=== PATIENT | female | born 1945 | race Caucasian/White ===

== ENCOUNTER → 2017-01-30 | Outpatient (CLI) | payer MEDICARE, BC ==
--- NOTE | 2017-01-30 17:19 | MAM ---
History: Well woman exam. Date of exam: 01/30/2017 Services provided: Bilateral full field digital screening mammography. CAD, the images were reviewed with R2 computer aided detection. FINDINGS: Glandular tissue is scattered glandular contour. Comparison with 2010 exam. No dominant mass, architectural distortion or clustered microcalcification. IMPRESSION: Benign exam Recommendation: Routine annual mammography BIRAD CATEGORY: 2 BENIGN Electronically signed by: Jacinta Perez MD 01/30/2017 5:18 PM CDT
== END | disposition home or self-care (01) ==
LOC: MAMMO 10:23
PROVIDERS: ATTEND Family Medicine
DX: Z12.31 Encounter for screening mammogram for malignant neoplasm of breast (principal)

== ENCOUNTER → 2017-04-27 | Outpatient (CLI) | payer MEDICARE, BC | END | disposition home or self-care (01) | LOC: GMAB 10:45 | PROVIDERS: ATTEND Family Medicine | DX: I10 Essential (primary) hypertension (principal) ==

== ENCOUNTER → 2018-05-02 | Outpatient (CLI) | payer MEDICARE, BC | LOC: GMAE 11:19 | PROVIDERS: ATTEND Family Medicine | DX: I10 Essential (primary) hypertension (principal) ==

== ENCOUNTER → 2018-05-08 | Outpatient (CLI) | payer MEDICARE, BC ==
--- NOTE | 2018-05-09 09:06 | MAM ---
EXAM DESCRIPTION: 3D Screening BILATERAL : Digital Mammography. CLINICAL HISTORY: 72 years Female SCREENING . No complaints. Remote family history of breast cancer. Childbirth. HRT 5 or more years ago. COMPARISON: Digital screening bilateral study 01/30/2017. Report from prior examination also reviewed. TECHNIQUE: Bilateral CC and MLO projection full-field images, 3-D tomosynthesis digital mammographic technique. CAD not utilized. FINDINGS: The breast parenchymal density pattern is: Scattered areas of fibroglandular density. No skin thickening or nipple retraction. Bilateral microcalcifications and coarse calcifications are solitary. Focal asymmetry approximately 3 cm from the left nipple at the 1200 - 1230 clock position in the anterior third of the breast. Not associated with microcalcifications. possible enlargement since the prior study versus different projection of stable densities. No new focal, stellate mass or density, focal asymmetry , and no suspicious microcalcifications right breast. IMPRESSION: BI-RADS CATEGORY: 0 - INCOMPLETE- Need additional imaging evaluation. FOLLOW-UP: Recall for additional imaging: Repeat full field 2-D images of the left breast in MLO projection. Anterior digital spot compression region of interest left breast 2-D CC projection. Bilateral 3-D full-field LM images. Targeted left breast ultrasound if indicated by diagnostic images.. Written communication concerning the IMPRESSION and Follow-up, will be mailed to the patient and referring health care provider. Electronically signed by: Fidencio Bell MD 05/09/2018 9:05 AM CDT
== END ==
LOC: MAMMO 13:00
PROVIDERS: ATTEND Family Medicine
DX: Z12.31 Encounter for screening mammogram for malignant neoplasm of breast (principal)

== ENCOUNTER → 2018-05-15 | Outpatient (CLI) | payer MEDICARE, BC ==
--- NOTE | 2018-05-15 15:19 | MAM ---
EXAM DESCRIPTION: 3D Diagnostic, Bilateral: Digital Mammography CLINICAL HISTORY: 72 yearsFemaleABNORMAL MAMMO focal asymmetry retroareolar left breast upper outer quadrant.. COMPARISON: 3-D tomosynthesis screening mammographic examination 05/08/2018. Targeted left breast ultrasound following this examination. TECHNIQUE: Bilateral LM projection full-field images, 3-D tomosynthesis digital mammographic technique. Digital spot compression of the anterior retroareolar left breast in the CC and MLO projections. CAD not utilized. FINDINGS: The breast parenchymal density pattern is: Scattered areas of fibroglandular density. No skin thickening or nipple retraction tomosynthesis in the LM projections did not demonstrate a focal mass. However the spot compression images showed a mass in the region of interest. No abnormal calcifications. Ultrasound: Scanning at the 100 clock position of the left breast 3 cm from the nipple. Hypoechoic mass measuring 3.8 mm craniocaudal and 3.9 mm transverse. Anterior posterior dimension is 5 mm. Minimally lobulated borders, antiparallel orientation, and posterior shadowing features. There may be a small extension from the mass. Differential includes solid mass, complicated cyst, or obstructed/dilated duct due to mass or debris. No distinct cyst. No large calcifications or parenchymal edema. No overlying skin changes. No abnormal vascularity. IMPRESSION: BI-RADS CATEGORY 4: SUSPICIOUS. SUB-CATEGORY 4A - LOW SUSPICION FOR MALIGNANCY. Surgical consultation and tissue diagnosis should be considered. The FINDINGS and follow-up plan were reviewed in person with the patient following the examination. Written communication explaining the IMPRESSION and follow-up will be mailed to the patient and referring care provider. CRITICAL COMMUNICATION: The critical value was discussed directly by phone with Dr. Reed Melissa at approximately 1435 hours, on May 15, 2018. Electronically signed by: Fidencio Bell MD 05/15/2018 3:17 PM CDT
--- NOTE | 2018-05-15 15:20 | US ---
EXAM DESCRIPTION: Breast,Left: Ultrasound CLINICAL HISTORY: 72 yearsFemaleABNORMAL MAMMO COMPARISON: Digital diagnostic mammogram left breast on this visit TECHNIQUE: Transcutaneous scanning of the left breast utilizing brock-scale and Doppler modes. Scanning performed by the supplemental manager and Dr. Bell. FINDINGS: Scanning at the 100 clock position of the left breast 3 cm from the nipple. Hypoechoic mass measuring 3.8 mm craniocaudal and 3.9 mm transverse. Anterior posterior dimension is 5 mm. Minimally lobulated borders, antiparallel orientation, and posterior shadowing features. There may be a small extension from the mass. Differential includes solid mass, complicated cyst, or obstructed/dilated duct due to mass or debris No distinct cyst. No large calcifications or parenchymal edema. No overlying skin changes. No abnormal vascularity. IMPRESSION: 1. BI-RADS CATEGORY: 4 - SUSPICIOUS. SUB - CATEGORY 4A: LOW SUSPICION FOR MALIGNANCY. 2. Please refer to bilateral 3-D diagnostic mammography and report on this visit. The FINDINGS and various follow-up plans were reviewed in person with the patient after the examination. Written communication explaining the IMPRESSION and FOLLOW-UP will be mailed to the patient and referring care provider. CRITICAL COMMUNICATION: The critical value was discussed directly by phone with Dr. Reed Melissa at approximately 1435 hours, on May 15, 2018. Electronically signed by: Fidencio Bell MD 05/15/2018 3:18 PM CDT
== END ==
LOC: US 13:00
PROVIDERS: ATTEND Family Medicine
DX: R92.2 Inconclusive mammogram (principal)
CPT/HCPCS: 76641; 77066; G0279

== ENCOUNTER 2018-07-19 06:01 | Inpatient (IN) | payer MEDICARE, BC ==
--- NOTE | 2018-07-17 11:18 | RAD ---
EXAM DESCRIPTION: Chest,2 Views CLINICAL HISTORY: 72 years Female, pre op COMPARISON: Radiographs of the chest dated 05/29/2018. TECHNIQUE: PA and lateral radiographs of the chest were obtained. FINDINGS: Trachea is midline.The cardiomediastinal silhouette is normal in size. The pulmonary vasculature is within normal limits.The lungs are clear with no acute consolidation.No evidence of pleural effusions.No evidence of pneumothorax. IMPRESSION: No acute cardiopulmonary process. Electronically signed by: Dasha Lobo MD 07/17/2018 11:17 AM CDT
[2018-07-19] MEDS ORDERED: METOCLOPRAMIDE HCL INJ 10 MG/2 ML VIAL ONE (07:00)
[2018-07-19] MEDS ORDERED: PROPOFOL 200 MG/20 ML VIAL IV ONE (07:00)
[2018-07-19] MEDS ORDERED: ePHEDrine SULF 50 MG/ML ONE (07:00)
[2018-07-19] MEDS ORDERED: LIDOCAINE 1% 10 ML VIAL INJ ONE (07:00)
[2018-07-19] MEDS ORDERED: raNITIdine HCL INJ 25 MG/ML VIAL ONE (07:00)
[2018-07-19] MEDS ORDERED: DEXAMETHASONE INJ 10 MG/ML VIAL ONE (07:00)
[2018-07-19] MEDS ORDERED: PHENYLEPHRINE INJ 1ML 10 MG/ML VIAL ONE (07:00)
[2018-07-19] MEDS ORDERED: SODIUM CHL 0.9% 100ML MINI-BAG 100 ML IVPB ONE (07:06)
[2018-07-19] MEDS ORDERED: ceFAZolin SODIUM 1 GM VIAL ONE (07:06)
[2018-07-19] MEDS ORDERED: LACTATED RINGERS 1,000 ML ONE (07:06)
[2018-07-19] MEDS ORDERED: LACTATED RINGERS 1,000 ML BAG IV ONE (07:50)
[2018-07-19] MEDS ORDERED: ACETAMINOPHEN IV 1000MG 100 ML ONE (08:18)
[2018-07-19] MEDS ORDERED: HYDROmorphone HCL INJ 2 MG/ML VIAL ONE ×2 (08:18→12:08)
[2018-07-19] MEDS ORDERED: MIDAZOLAM INJ 2 MG/2 ML VIAL ONE (08:18)
[2018-07-19] MEDS ORDERED: SODIUM CHLORIDE 0.9% 50 ML VIAL ONE (09:12)
[2018-07-19] MEDS ORDERED: ELECTROLYTE-A 1,000 ML IVS ONE (10:33)
[2018-07-19] MEDS ORDERED: MORPHINE SULFATE INJ 10 MG/ML VIAL IV PRN (11:53)
[2018-07-19] MEDS ORDERED: ONDANSETRON INJ 4 MG/2 ML VIAL IV PRN (11:53)
--- NOTE | 2018-07-19 13:12 | HP ---
CHIEF COMPLAINT: Biopsy-proven carcinoma of the left breast. HISTORY OF PRESENT ILLNESS: The patient is a 72-year-old female who on routine mammography was found to have a mass and a biopsy revealed invasive carcinoma. She underwent metastatic workup which was negative. It is also significant that her daughter is currently being treated for breast cancer in [place]. The risks, benefits and alternatives to surgical treatment with or without radiation were discussed with the patient. She has elected to proceed with modified radical mastectomy today. PAST MEDICAL HISTORY: 1. Gastroesophageal reflux disease. 2. Heart murmur. 3. History of urinary tract infections. 4. Chronic back pain. 5. Diabetes. 6. Elevated lipids. PAST SURGICAL HISTORY: 1. Back surgery with plates. 2. Total vaginal hysterectomy with bladder suspension and then later removal of the mesh. 3. Ablation. 4. Bilateral cataracts. 5. Tonsillectomy. 6. Colonoscopy. CURRENT MEDICATIONS: 1. Lipitor. 2. Norvasc. 3. Mobic. 4. Amlodipine. 5. Aricept. 6. Zoloft. 7. Gabapentin. 8. Janumet. 9. Aspirin, which is being held. ALLERGIES: CYMBALTA. FAMILY HISTORY: Significant for breast cancer in her daughter. SOCIAL HISTORY: The patient is . She lives here in [place]. There is no history of tobacco abuse or alcohol abuse. REVIEW OF SYSTEMS: Noncontributory except for history of a heart murmur and history of urinary tract infections. She also has a history of hospitalization earlier this year for 20 days and the patient continues to have some problems dealing with the results of that hospitalization. PHYSICAL EXAMINATION: GENERAL: The patient is awake, alert, cooperative, in no acute distress. HEENT: Sclerae nonicteric. Mucous membranes moist. NECK/AXILLA: Without adenopathy. BACK: Without CVA tenderness. CHEST: Equal breath sounds bilaterally. HEART: Regular rhythm. BREASTS: The left breast is marked with my initials for a mastectomy. The biopsy site is healed well. ABDOMEN: Benign without organomegaly. PELVIC/RECTAL: Deferred. EXTREMITIES: Without cyanosis, clubbing or edema. LABORATORY: EKG with normal sinus rhythm with some prolonged QT interval and some ST changes somewhat worrisome for ischemia. Glucose this morning was 106. Electrolytes reveal blood sugar 151, creatinine 0.64, potassium 4.0. Liver functions within normal limits. Hemoglobin 17, white count 7.7, platelet count 200,000, normal differential. Urine reveals 1 to 3 red cells and white cells, no bacteria, leukocyte esterase positive. Blood and urine cultures pending. ASSESSMENT: 1. Biopsy-proven carcinoma of the left breast. PLAN: The patient is admitted today after IV Ancef for a left modified radical mastectomy. #[id number] [facility]
[2018-07-19] MEDS ORDERED: ceFAZolin SODIUM 2 GRAMS PREMI 50 ML IVPB ONE ×2 (13:35→20:36)
[2018-07-19] MEDS: LACTATED RINGERS 1,000 ML IVS PRN (14:01)
[2018-07-19] MEDS: ceFAZolin SODIUM 2 GRAMS PREMI 2 GM in PREMIX BAG 1 BAG IVPB SCH ×2 (14:01→21:13)
--- NOTE | 2018-07-19 14:01 | OP ---
DATE OF PROCEDURE: 07/19/18 PREOPERATIVE DIAGNOSIS: 1. Biopsy-proven carcinoma of the left breast. POSTOPERATIVE DIAGNOSIS: 1. Biopsy-proven carcinoma of the left breast. PROCEDURE: 1. Left modified radical mastectomy. SURGEON: Elian Solomon MD. RESEARCH PHARMACIST: None. ANESTHESIA: General laryngeal mask anesthesia. INDICATION: The patient is a 72-year-old female who on routine mammography was found to have a small breast cancer. She was brought to the Surgical Suite today for mastectomy after the risks, benefits and alternatives to the procedure were discussed and accepted. FINDINGS: No significant pathology was identified. Post procedure, the long thoracic nerve of Mondragon and the thoracodorsal bundle were functioning with stimulation. PROCEDURE: After the risks, benefits and alternatives to the procedure were discussed and accepted, the patient was brought to the Surgical Suite for mastectomy. She was placed in the supine position. The patient was prepped and draped in the usual sterile manner. She has undergone general laryngeal mask anesthesia. Surgical time-out was taken. The left breast was marked for the superior and inferior flaps with a marking pen. The sharp knife was used to incise the skin on the superior flap and the superior flap was then taken using electrocautery and [place] clamps and retractors. When this was done, the flap was dissected free medially to the sternum, superiorly to the clavipectoral fascia and into the axilla. Hemostasis was noted to be adequate. A warm sponge was placed under the flap and then the inferior flap was taken in a like manner down to the rectus abdominis fascia. The breast was dissected free from the muscle from medial to lateral using a sharp knife and electrocautery. When this was done, no dissection was performed with the superior margin, the axillary vein posteriorly and thoracodorsal bundle and the long thoracic nerve of [place]ragon. The specimen was sent en bloc of the left breast and axillary contents. Hemostasis was obtained with electrocautery. The wound was then irrigated copiously with saline. The skin edges were approximated running 3-0 Vicryl sutures, one from each end. When they come to the middle, they are irrigated. Prior to closing two 15 [place] LIANE drains were placed, one in the chest wall and one in the axilla. The wound was then drained through the drains. The skin edges were approximated with a skin stapler. The drains were cut to appropriate length and connected to grenades for suction drainage. A sterile pressure dressing was applied. The patient tolerated well and was taken to the Recovery Room in stable condition. Estimated blood loss was probably 200 to 250 mL. All sponge, needle and instrument counts were correct. #[id number] [facility]
[2018-07-19] MEDS: HYDROcodone 5MG/APAP 325MG 1 EA TAB PO PRN ×2 (15:07→21:17)
[2018-07-19] MEDS ORDERED: DEXTROSE 50% 25 GM/50 ML SYG IV PRN (17:34)
[2018-07-19] MEDS ORDERED: GLUCAGON INJ 1 MG VIAL SUBCU PRN (17:34)
[2018-07-19] MEDS ORDERED: DONEPEZIL HCL 5 MG TAB ONE (20:36)
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
[2018-07-19] MEDS ORDERED: NON-FORMULARY MEDICATION 1 EA MIS (Donepezil Hydrochloride [Donepezil Hcl] 10 MG) PO SCH (21:00)
[2018-07-19] MEDS: INSULIN LISPRO 100 UNITS/ML PEN SUBCU SCH (21:14)
[2018-07-19] MEDS: SERTRALINE HCL 50 MG TAB PO SCH (21:15)
[2018-07-20] MEDS: LACTATED RINGERS 1,000 ML IVS PRN (01:34)
[2018-07-20] MEDS: HYDROcodone 5MG/APAP 325MG 1 EA TAB PO PRN ×5 (01:34→20:57)
[2018-07-20] MEDS ORDERED: ceFAZolin SODIUM 2 GRAMS PREMI 50 ML IVPB ONE (05:17)
[2018-07-20] MEDS: ceFAZolin SODIUM 2 GRAMS PREMI 2 GM in PREMIX BAG 1 BAG IVPB SCH (05:19)
[2018-07-20] MEDS: PANTOPRAZOLE SODIUM TAB 40 MG PO SCH (06:04)
[2018-07-20] MEDS: INSULIN LISPRO 100 UNITS/ML PEN SUBCU SCH ×4 (07:37→20:58)
[2018-07-20] MEDS ORDERED: [UNRECOGNIZED DRUG - OTHER] PO SCH (09:00)
[2018-07-20] MEDS ORDERED: NON-FORMULARY MEDICATION 1 EA MIS (Probiotic Product [Probiotic] 1 TAB) PO SCH (09:00)
[2018-07-20] MEDS ORDERED: NON-FORMULARY MEDICATION 1 EA MIS (Losartan Potassium [Losartan Potassium] 50 MG) PO SCH (09:00)
[2018-07-20] MEDS ORDERED: SITAGLIPTIN PO SCH (09:00)
[2018-07-20] MEDS ORDERED: METFORMIN PO SCH (09:00)
[2018-07-20] MEDS: ATORVASTATIN 10 MG TAB PO SCH (10:19)
[2018-07-20] MEDS: LOSARTAN POTASSIUM 25 MG TAB PO SCH (10:19)
[2018-07-20] MEDS: ENOXAPARIN SODIUM 40 MG/0.4 ML SYG SUBCU SCH (10:19)
[2018-07-20] MEDS ORDERED: metFORMIN HCL 500 MG TAB PO SCH (10:30)
[2018-07-20] MEDS ORDERED: metFORMIN XR 500 MG TAB.ER.24 PO SCH (12:00)
[2018-07-20] MEDS: SITagliptin 50 MG TAB PO SCH (12:06)
[2018-07-20] MEDS: BIFIDOBACTERIUM INFANTIS 4 MG CAP PO SCH (12:07)
[2018-07-20] MEDS: NON-FORMULARY MEDICATION 1 EA MIS (Letrozole [Letrozole] 2.5 MG) PO SCH (12:07)
[2018-07-20] MEDS ORDERED: ALBUTEROL SULFATE 2.5 MG/3 ML VIAL NEB ONE (13:15)
[2018-07-20] MEDS: ALBUTEROL SULFATE 2.5 MG/3 ML VIAL NEB SCH ×2 (16:34→20:23)
--- NOTE | 2018-07-20 19:58 | PN ---
DATE: 07/20/18 SUPERVISING PHYSICIAN: Alec Melissa M.D. SUBJECTIVE: The patient is sitting up in her bed. She is eating her lunch. She has no complaints of nausea, vomiting, diarrhea or constipation. She actually says she is in minimal pain and the pain medications control it. OBJECTIVE: VITAL SIGNS: She is afebrile, heart rate 65, blood pressure 128/60, respiratory rate 18, O2 sat 94% on room air. RESPIRATORY: Essentially clear to auscultation bilaterally. CARDIAC: Regular rate. GASTROINTESTINAL: Abdomen is soft, nondistended, non-tender. Bowel sounds are positive. CHEST: She does have a surgical binding in place to her chest from her surgical wounds. It is dry and intact. She has 2 J-P drains with a very small amount of serosanguinous fluid. NEUROLOGIC: She is awake, alert and oriented times three. LABORATORY: WBCs are 9.7 with hemoglobin 13.5, hematocrit 41.1. Blood sugars have run between 122 and 218. Electrolytes are basically within normal limits. All other labs and films have been reviewed via the EMR. ASSESSMENT: 1. Biopsy proven carcinoma of the left breast status post modified left radical mastectomy performed by Dr. Elian Solomon, general surgeon. Postoperative day #1. 2. Gastroesophageal reflux disease. 3. Diabetes. 4. Chronic back pain. 5. History of frequent urinary tract infections. PLAN: We will continue present supportive care. Her blood sugars have been controlled well with her sliding scale. I have ordered good pulmonary hygiene and have encouraged her to continue with this. All postoperative issues will be per Dr. Elian Solomon. Otherwise we will continue to monitor closely and follow as needed. Dr. Melissa is the collaborating physician available for consultation. #[id number] [facility]
[2018-07-20] MEDS: SERTRALINE HCL 50 MG TAB PO SCH (20:57)
[2018-07-20] MEDS ORDERED: DONEPEZIL HCL 5 MG TAB PO SCH (21:00)
[2018-07-21] MEDS: PANTOPRAZOLE SODIUM TAB 40 MG PO SCH (06:02)
[2018-07-21] MEDS: INSULIN LISPRO 100 UNITS/ML PEN SUBCU SCH (06:55)
[2018-07-21 07:13] VITALS: BP 151/66; TEMP 98.5
[2018-07-21] MEDS: SITagliptin 50 MG TAB PO SCH (07:14)
[2018-07-21] MEDS ORDERED: metFORMIN XR 500 MG TAB.ER.24 PO SCH (07:30)
[2018-07-21] MEDS: ALBUTEROL SULFATE 2.5 MG/3 ML VIAL NEB SCH (07:59)
[2018-07-21 08:01] VITALS: O2SAT 97
[2018-07-21] MEDS: NON-FORMULARY MEDICATION 1 EA MIS (Letrozole [Letrozole] 2.5 MG) PO SCH (08:28)
[2018-07-21] MEDS: BIFIDOBACTERIUM INFANTIS 4 MG CAP PO SCH (08:29)
[2018-07-21] MEDS: ATORVASTATIN 10 MG TAB PO SCH (08:29)
[2018-07-21] MEDS: LOSARTAN POTASSIUM 25 MG TAB PO SCH (08:29)
[2018-07-21] MEDS: ENOXAPARIN SODIUM 40 MG/0.4 ML SYG SUBCU SCH (08:29)
[2018-07-21] MEDS: HYDROcodone 5MG/APAP 325MG 1 EA TAB PO PRN (08:33)
--- NOTE | 2018-07-21 18:50 | DS ---
FINAL DIAGNOSIS: 1. Carcinoma of the left breast. Pathology pending for staging. SURGICAL PROCEDURE: 1. The patient underwent a left modified radical mastectomy on 07/19/18. HISTORY OF PRESENT ILLNESS: The patient is a 72-year-old female who on routine mammography was found to have a mass and a biopsy revealed invasive carcinoma. She underwent metastatic workup which was negative. It is also significant that her daughter is currently being treated for breast cancer in [place]. The risks, benefits and alternatives to surgical treatment with or without radiation were discussed with the patient. She has elected to proceed with modified radical mastectomy today. LABORATORY: On the first preoperative day, the patient's hemoglobin was 13.5, white count 9,700. She had 180,000 platelets and a normal differential. Pathology is pending. HOSPITAL COURSE: The patient was admitted to the Surgical Suite where she underwent the left modified radical mastectomy without difficulty. By the first postoperative evening she was tolerating a clear liquid diet. The first postoperative morning she was stable. Her Wilkinson catheter was discontinued. Her IV was discontinued. She was advanced to a regular diet and regular medication. Her drainage continued to be moderate and serosanguinous. By the second postoperative morning a dressing change was performed. There was a small amount of mottling on the medial aspect of the superior flap, otherwise no significant problems. The J-Ps were milked. The patient was redressed and at this time the patient is discharged home. PLAN: Condition on discharge is good. Prognosis is good pending the pathology report. Discharged home on her regular diet and regular medications plus she was given a prescription for [place] 5 mg for pain. She was told that she has to keep her dressing dry so she cannot tub bath or shower. She is to drain her J- P drains 3 or 4 times a day, measure and document the amount of drainage. She is to call my office Monday morning with the drainage output and to schedule a followup appointment. She is to have home health for daily dressing changes and milking of the J-P by [facility]. She also is instructed to call me if she develops nausea, vomiting, fever, chills, increasing pain or has any other questions or problems. #[id number] [facility]
== END 2018-07-21 10:45 | disposition home health service (06) | DRG 583 ==
LOC: AMB 06:01 → MS 13:32
PROVIDERS: ADMIT Surgery; ATTEND Surgery
PROC: 0HTU0ZZ Resection of Left Breast, Open Approach (ICD-10-PCS; principal; 2018-07-19 08:34)
DX: C50.912 Malignant neoplasm of unspecified site of left female breast (principal); K21.9 Gastro-esophageal reflux disease without esophagitis; G89.29 Other chronic pain; M54.9 Dorsalgia, unspecified; R01.1 Cardiac murmur, unspecified; E11.9 Type 2 diabetes mellitus without complications; E78.5 Hyperlipidemia, unspecified; Z80.3 Family history of malignant neoplasm of breast; Z79.1 Long term (current) use of non-steroidal anti-inflammatories (NSAID); Z79.899 Other long term (current) drug therapy; Z79.84 Long term (current) use of oral hypoglycemic drugs; Z79.82 Long term (current) use of aspirin; Z88.8 Allergy status to other drugs, medicaments and biological substances

== ENCOUNTER 2018-07-26 08:48 | Inpatient (IN) | payer MEDICARE, BC ==
[2018-07-26] MEDS ORDERED: MAGNESIUM SULFATE PREMIX 2GM 2 GM in PREMIX BAG 1 BAG IVPB ONE ×2 (10:02→13:38)
--- NOTE | 2018-07-26 10:03 | CT ---
EXAM DESCRIPTION: Head CLINICAL HISTORY: confusion sp mastectomy COMPARISON: Previous CT head June 14, 2013, previous MRI of the brain June 12, 2013 TECHNIQUE: Noncontrast head CT was performed with routine protocol. FINDINGS: Normal brock-white matter differentiation. Ventricles and sulci are enlarged consistent with age-related cerebral volume loss which has progressed since the previous study. Low density white matter indicates chronic microvascular ischemic changes in both cerebral hemispheres. 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 No high density hemorrhage, focal edema or shift of the midline. No sulcal effacement. Normal orbital contents. Basilar cisterns appear clear. Intact calvarium with no fracture or lytic lesion. Normal aeration of tympanic cavities and mastoid air cells. No fluid levels in the paranasal sinuses. Skull base appears intact. Symmetrical internal auditory canals. IMPRESSION: Senescent brain and chronic microvascular ischemic changes with moderate progression since previous study. No acute intracranial pathologic process. This exam was performed according to our departmental dose-optimization program, which includes automated exposure control, adjustment of the mA and/or kV according to patient size and/or use of iterative reconstruction technique. Total DLP equals 752.48 mGycm. Electronically signed by: Zeke Branch MD 07/26/2018 10:01 AM CDT
--- NOTE | 2018-07-26 10:04 | RAD ---
EXAM DESCRIPTION: Chest,1 View CLINICAL HISTORY: 72 years Female, confusion sp mastectomy COMPARISON: None. TECHNIQUE: AP portable chest. FINDINGS: Heart size is prominent with normal pulmonary vascularity. Skin rasheed are seen over the left chest with orthopedic hardware in the lower thoracic spine. Densities overlying the chest are thought to be external to the patient. Minimal discoid atelectasis in lung bases. No consolidating infiltrate. No pulmonary mass or worrisome nodule. No pneumothorax or pleural effusion. Bones are unremarkable. IMPRESSION: Prominent heart without congestive failure. Electronically signed by: Zeke Branch MD 07/26/2018 10:03 AM CDT
--- NOTE | 2018-07-26 10:53 | ED.PDOC ---
History of Present Illness - General Chief Complaint: Post Op Problems Stated Complaint: sabino drains detached again Time Seen by Provider: 07/26/18 08:53 Source: patient Exam Limitations: clinical condition - History of Present Illness Initial Comments: the patient is a 72-year-old female presenting to the emergency room secondary to her mastectomy drain bulbs coming off overnight. The patient is unsure how this happened. This is the second time that this has happened. The patient had a mastectomy last week for apparent localized breast cancer. Over the weekend she came up due to this problem. The bulbs were replaced and she was sent back home. The patient does not remember what happened to the bulbs. She does apparently have some mild dementia but she has been acting more confused than normal according to her general surgeon and primary care doctor. The patient lives alone. She is a diabetic. She does take pain medications. She does know where she isn't what is going on. Pupils are small and minimally reactive. Speech is somewhat slow. She is pleasant and cooperative. She does move everything well. She does not think that shehas fallen in the last couple of days but she is not certain. Left-sided mastectomy site appears to be healing well with only mild bruising but no significant purulent drainage. Timing/Duration: unsure Severity: moderate Improving Factors: nothing Worsening Factors: nothing Associated Symptoms: weakness Allergies/Adverse Reactions: Allergies CI Pigment Blue 63 [From Cymbalta] Adverse Reaction (Severe, Verified 07/19/18 13:55) Other increased depression Duloxetine [From Cymbalta] Adverse Reaction (Severe, Verified 07/19/18 13:55) Other increased depression Home Medications: Ambulatory Orders Atorvastatin Calcium [Lipitor] 20 mg PO DAILY 11/12/14 Donepezil Hydrochloride [Donepezil HCl] 10 mg PO BEDTIME 11/12/14 Sitagliptin-Metformin HCl [Janumet 50-1000 mg] 2 tab PO DAILY 11/12/14 Calcium 600 mg PO DAILY 07/19/18 Letrozole 2.5 mg PO DAILY 07/19/18 Losartan Potassium 50 mg PO DAILY 07/19/18 Probiotic Product [Probiotic] 1 tab PO DAILY 07/19/18 Bifidobacterium Infantis [Align] 4 mg PO DAILY cap 07/21/18 Donepezil HCl [Aricept] 10 mg PO BEDTIME tab 07/21/18 Glucagon Inj 0 mg SUBCU PRN PRN vial 07/21/18 HYDROcodone 5MG/APAP 325MG [[place] 5/325] 1 - 2 ea PO Q4H PRN #30 tab 07/21/18 Losartan Potassium [Cozaar] 50 mg PO DAILY tab 07/21/18 Sertraline HCl [Zoloft] 100 mg PO BEDTIME tab 07/21/18 Review of Systems - Review of Systems Constitutional: States: malaise, weakness - generalized EENTM: States: no symptoms reported Respiratory: States: no symptoms reported Cardiology: States: no symptoms reported Gastrointestinal/Abdominal: States: no symptoms reported Genitourinary: States: no symptoms reported Musculoskeletal: States: back pain - chronic Skin: States: no symptoms reported Neurological: States: other - mild general confusion Endocrine: States: no symptoms reported All other Systems: No Change from Baseline Past Medical History (General) - Patient Medical History Hx Seizures: No Hx Stroke: No Hx Asthma: No Hx of COPD: No Hx Congestive Heart Failure: No Hx Pacemaker: No Hx Hypertension: No Hx Diabetes: Yes Hx MRSA: No - Vaccination History Hx Influenza Vaccination: Yes - 2013 Hx Pneumococcal Vaccination: Yes - unknown - Social History Hx Alcohol Use: No Hx Substance Use: No Hx Physical Abuse: No Hx Emotional Abuse: No Family Medical History - Family History Mother Living Status: Hx Family Cancer: Yes - liver and colon Father Living Status: Hx Family Stroke: Yes Physical Exam - Physical Exam General Appearance: Comfortable, No apparent distress, Other - mildly drowsy Eye Exam: bilateral normal Ears, Nose, Throat: hearing grossly normal, normal ENT inspection, normal pharynx Neck: full range of motion, supple Respiratory: lungs clear, normal breath sounds, no respiratory distress, no accessory muscle use Cardiovascular/Chest: normal peripheral pulses, regular rate, rhythm, no edema, other - left-sided mastectomy site appears to be healing well with 2 drains at approximately 4:00 Peripheral Pulses: radial,right: 2+, radial,left: 2+ Gastrointestinal/Abdominal: non tender, soft Rectal Exam: deferred Extremity: non-tender, normal inspection, no pedal edema, normal capillary refill 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 She is currently alert and oriented 4. Skin Exam: normal color - mild bruising at the surgery site Comments: Vital Signs - 24 hr 07/26/18 07/26/18 07/26/18 08:55 09:20 10:14 Temperature 99.0 F Pulse Rate [ 70 75 60 right brachial] Respiratory 16 16 20 Rate Blood Pressure 157/76 152/91 161/75 [right brachial ] O2 Sat by Pulse 96 96 96 Oximetry 07/26/18 07/26/18 10:15 10:16 Temperature Pulse Rate [ 77 62 right brachial] Respiratory 16 20 Rate Blood Pressure 144/64 148/51 [right brachial ] O2 Sat by Pulse 96 96 Oximetry Progress - Progress Progress: 07/26/18 10:56 the patient a 72-year-old female emergency room secondary to difficulties with her mastectomy site drains. The bulbs at the end of the drains were replaced. The patient does appear to be experiencing some delirium. Source of this is not entirely certain. It may be that the patient is overmedicating with her pain medications. It may be that she is getting hypoglycemic episodes at night that she is unable to deal with and document. It may be that she has not completely recovered from anesthesia from the surgery given her background mild dementia. she does live alone. The patient will be admitted for monitoring of her mental status as well as the issues above. She does have profound hypomagnesemia that will likely require correction over 2-3 days in order to improve her body stores of magnesium. It is possible she may be getting periods of arrhythmia from this profound hypomagnesemia. This will need to be followed and home medications may need to be adjusted. She does have EKG changes in the form of the right bundle branch block and the mild T-wave inversions that will need to be followed as the magnesium is corrected. She does not have any elevation of the troponin and she is not having any chest pain or significant shortness of breath indicate acute ischemia. The patient's functional status on her own also needs to be assessed to see if she is safe living on her own. She may also need some rehabilitation in order to perform her ADLs. - Results/Orders Results/Orders: 07/26/18 09:15 Vital Signs-Tilt PRN EKG STAT 07/26/18 10:02 Magnesium Sulfate Premix 2Gm 2 gm Premix Bag 1 bag IVPB ONCE 07/27/18 09:15 EKG STAT Laboratory Results - last 24 hr 07/26/18 07/26/1818 09:29 09:29 09:57 WBC 7.7 RBC 4.60 Hgb 13.4 Hct 40.4 MCV 87.8 MCH 29.2 MCHC 33.2 RDW 14.3 Plt Count 225 MPV 7.7 Absolute Neuts (auto) 5.80 Absolute Lymphs (auto) 1.00 Absolute Monos (auto) 0.60 Absolute Eos (auto) 0.20 Absolute Basos (auto) 0.00 Neutrophils % 75.9 Lymphocytes % 13.5 L Monocytes % 7.7 Eosinophils % 2.3 Basophils % 0.6 Sodium 138 Potassium 3.9 Chloride 104 Carbon Dioxide 26 Anion Gap 11.9 L BUN 8 Creatinine 0.64 BUN/Creatinine Ratio 12.5 Random Glucose 243 H Serum Osmolality 282.0 Calcium 9.3 Magnesium 1.3 L Total Bilirubin 0.6 AST 24 ALT < 8 L Alkaline Phosphatase 33 L Creatine Kinase 54 CK-MB (CK-2) 3.0 CK-MB (CK-2) % Not Reportable Troponin I 0.05 B-Natriuretic Peptide 322.0 H* Serum Total Protein 6.1 L Albumin 3.5 Globulin 2.6 Albumin/Globulin Ratio 1.3 TSH 3.88 Urine Color Yellow Urine Appearance Clear Urine pH 5.0 Ur Specific [place] 1.010 Urine Protein Negative Urine Glucose (UA) 100 H Urine Ketones Negative Urine Blood Negative Urine Nitrite Negative Urine Bilirubin Negative Urine Urobilinogen 0.2 Ur Leukocyte Esterase Trace H Urine RBC 0 Urine WBC 1-3 Ur Epithelial Cells 1-3 Urine Bacteria Rare EKG shows normal sinus rhythm with left atrial dilation. There is an early right bundle branch block. There are T-wave inversions in leads 3 and aVF and V6. The patient is chest pain-free. There is some mild QT prolongation. Borderline right axis. Head CT is negative for any acute changes. Chest x-ray shows mild cardiomegaly but no evidence of overt fluid overload and no infiltrate or mass. Departure - Departure Clinical Impression: Delirium, Hypomagnesemia Disposition: Admit Patient Condition: Fair Referrals: RUTHIE MENJIVAR MD [Primary Care Provider] - 1-2 Weeks Home Medications: Ambulatory Orders Atorvastatin Calcium [Lipitor] 20 mg PO DAILY 11/12/14 Donepezil Hydrochloride [Donepezil HCl] 10 mg PO BEDTIME 11/12/14 Sitagliptin-Metformin HCl [Janumet 50-1000 mg] 2 tab PO DAILY 11/12/14 Calcium 600 mg PO DAILY 07/19/18 Letrozole 2.5 mg PO DAILY 07/19/18 Losartan Potassium 50 mg PO DAILY 07/19/18 Probiotic Product [Probiotic] 1 tab PO DAILY 07/19/18 Bifidobacterium Infantis [Align] 4 mg PO DAILY cap 07/21/18 Donepezil HCl [Aricept] 10 mg PO BEDTIME tab 07/21/18 Glucagon Inj 0 mg SUBCU PRN PRN vial 07/21/18 HYDROcodone 5MG/APAP 325MG [[place] 5/325] 1 - 2 ea PO Q4H PRN #30 tab 07/21/18 Losartan Potassium [Cozaar] 50 mg PO DAILY tab 07/21/18 Sertraline HCl [Zoloft] 100 mg PO BEDTIME tab 07/21/18 Decision To Admit - Decistion To Admit Decision to Admit Reason: Medical Nature Decision to Admit Date: 07/26/18
[2018-07-26] MEDS ORDERED: MAGNESIUM SULFATE PREMIX 2GM 50 ML IVPB ONE ×2 (10:56→13:54)
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
[2018-07-26] MEDS ORDERED: SODIUM CHLORIDE 0.9% (FLUSH) 10 ML SYG IV PRN (13:30)
[2018-07-26] MEDS ORDERED: ACETAMINOPHEN 325 MG TAB PO PRN (13:30)
[2018-07-26] MEDS ORDERED: DEXTROSE 50% 25 GM/50 ML SYG IV PRN (13:43)
[2018-07-26] MEDS ORDERED: GLUCAGON INJ 1 MG VIAL SUBCU PRN (13:43)
[2018-07-26] MEDS: IV SET AND CAP CHANGE INJ INJ SCH (14:05)
[2018-07-26] MEDS: INSULIN LISPRO 100 UNITS/ML PEN SUBCU SCH ×2 (17:19→21:05)
[2018-07-26] MEDS: HYDROcodone 5MG/APAP 325MG 1 EA TAB PO PRN (18:07)
[2018-07-26] MEDS: SODIUM CHLORIDE 0.9% (FLUSH) 10 ML SYG IV SCH (21:04)
[2018-07-26] MEDS: ENOXAPARIN SODIUM 40 MG/0.4 ML SYG SUBCU SCH (21:04)
[2018-07-26] MEDS: DONEPEZIL HCL 5 MG TAB PO SCH (22:51)
[2018-07-27] MEDS: HYDROcodone 5MG/APAP 325MG 1 EA TAB PO PRN ×3 (02:33→20:48)
[2018-07-27] MEDS ORDERED: ATORVASTATIN 20 MG TAB PO ONE (03:20)
[2018-07-27] MEDS: INSULIN LISPRO 100 UNITS/ML PEN SUBCU SCH ×4 (07:28→21:24)
[2018-07-27] MEDS: LOSARTAN POTASSIUM 25 MG TAB PO SCH (08:13)
[2018-07-27] MEDS: SERTRALINE HCL 50 MG TAB PO SCH (08:13)
[2018-07-27] MEDS: SODIUM CHLORIDE 0.9% (FLUSH) 10 ML SYG IV SCH ×2 (08:19→20:42)
[2018-07-27] MEDS: ATORVASTATIN 10 MG TAB PO SCH (08:21)
[2018-07-27] MEDS ORDERED: NON-FORMULARY MEDICATION 1 EA MIS (Probiotic Product [Probiotic] 1 TAB) PO SCH (09:00)
[2018-07-27] MEDS ORDERED: SITAGLIPTIN PO SCH (09:00)
[2018-07-27] MEDS ORDERED: [UNRECOGNIZED DRUG - OTHER] PO SCH (09:00)
[2018-07-27] MEDS ORDERED: METFORMIN PO SCH (09:00)
[2018-07-27] MEDS: NON-FORMULARY MEDICATION 1 EA MIS (Letrozole [Letrozole] 2.5 MG) PO SCH (09:02)
[2018-07-27] MEDS: BIFIDOBACTERIUM INFANTIS 4 MG CAP PO SCH (10:17)
--- NOTE | 2018-07-27 15:40 | PN ---
DATE: 07/27/18 SUPERVISING PHYSICIAN: Alec Melissa M.D. SUBJECTIVE: The patient is sitting up in her bed. Says she feels much improved but continues to feel very weak. She has not slept very well for several nights. Otherwise she denies shortness of breath, nausea, vomiting, diarrhea, constipation or chest pain. [place] her dressing change went well this morning with Dr. Solomon. OBJECTIVE: VITAL SIGNS: Temperature 98, pulse 66, blood pressure 125/72, respiratory rate 18, O2 sat 94% on room air. RESPIRATORY: Essentially clear to auscultation bilaterally. CARDIAC: Regular rate and rhythm. GASTROINTESTINAL: Abdomen is soft, nondistended, non-tender. Bowel sounds are positive. EXTREMITIES: No cyanosis, clubbing or edema. CHEST: She has a surgical bandage across her chest that is dry and intact. She has 2 J-P drains that are draining a very small amount of serosanguinous fluid. NEUROLOGIC: She is awake , alert and oriented to person and place. LABORATORY: WBCs are basically within normal limits. Blood sugars have run between 124 and 222. Electrolytes are within normal limits. Magnesium has improved to 1.8. All other labs and films have been reviewed via the EMR. ASSESSMENT: 1. Delirium of unknown etiology with second Emergency Room visit within the last week due to removal of suction bulbs from LIANE drains. 2. Electrolyte imbalance with severe hypomagnesemia that has now normalized. 3. Recent left modified radical mastectomy on 07/19/18. 4. Gastroesophageal reflux disease. 5. Diabetes mellitus, type 2. 6. Chronic back pain. PLAN: We will continue present supportive care. I have consulted Physical Therapy to evaluate her for strengthening and conditioning. Her dressing changes will be per Dr. Solomon, general surgeon. I will also order a BNP and magnesium in the morning as she has had some electrolyte disturbances in the recent past and we need to monitor those closely. I will review her charts and see if we can give her a very light sleeping pill. Otherwise will continue to monitor her closely and follow as needed. Dr. Melissa is the collaborating physician available for consultation. #[id number] [facility]
[2018-07-27] MEDS: DONEPEZIL HCL 5 MG TAB PO SCH (20:42)
[2018-07-27] MEDS: ENOXAPARIN SODIUM 40 MG/0.4 ML SYG SUBCU SCH (20:42)
[2018-07-28] MEDS: INSULIN LISPRO 100 UNITS/ML PEN SUBCU SCH ×4 (07:53→20:50)
[2018-07-28] MEDS ORDERED: MAGNESIUM SULFATE PREMIX 2GM 2 GM in PREMIX BAG 1 BAG IVPB ONE (08:41)
[2018-07-28] MEDS: NON-FORMULARY MEDICATION 1 EA MIS (Letrozole [Letrozole] 2.5 MG) PO SCH (09:33)
[2018-07-28] MEDS ORDERED: MAGNESIUM SULFATE PREMIX 2GM 50 ML IVPB ONE (09:34)
[2018-07-28] MEDS: BIFIDOBACTERIUM INFANTIS 4 MG CAP PO SCH (09:45)
[2018-07-28] MEDS: LOSARTAN POTASSIUM 25 MG TAB PO SCH (09:45)
[2018-07-28] MEDS: ATORVASTATIN 10 MG TAB PO SCH (09:45)
[2018-07-28] MEDS: SERTRALINE HCL 50 MG TAB PO SCH (09:45)
[2018-07-28] MEDS: SODIUM CHLORIDE 0.9% (FLUSH) 10 ML SYG IV SCH ×2 (09:46→20:30)
[2018-07-28] MEDS: HYDROcodone 5MG/APAP 325MG 1 EA TAB PO PRN ×2 (13:26→19:40)
--- NOTE | 2018-07-28 13:32 | PN ---
DATE: 07/28/18 SUPERVISING PHYSICIAN: Alec Melissa M.D. SUBJECTIVE: The patient is lying in bed. She is asleep, awakens easily. She had her dressing done by Dr. Solomon about an hour before. She had 1 drain removed. She has no complaints of nausea, vomiting, chest pain or shortness of breath, but she does say she is quite weak and very tired. She does have some incisional pain in her chest but the pain medications are helping with that. OBJECTIVE: VITAL SIGNS: She is afebrile, heart rate 82, blood pressure 134/80 , respiratory rate 18, O2 sat 91% on room air. RESPIRATORY: Essentially clear to auscultation bilaterally. CARDIAC: Regular rate and rhythm. CHEST: She has a surgical dressing wrapped around her chest. The dressing is dry and intact. Surgical dressing in place over the incision on her chest. It is dry and intact. She has 1 J-P drain draining a very small amount of serosanguinous fluid. NEUROLOGIC: She is awake and alert, oriented to person and place. LABORATORY: Blood sugars have run between 115 and 222. Electrolytes are basically within normal limits but her magnesium is slightly low at 1.7. All other labs and films have been reviewed via the EMR. ASSESSMENT: 1. Delirium of unknown etiology with second Emergency Room visit within the last week due to removal of suction bulbs from LIANE drains. 2. Electrolyte imbalance with severe hypomagnesemia on admission with need for correction today with a magnesium of 1.7. 3. Recent left modified radical mastectomy on 07/19/18. 4. Gastroesophageal reflux disease. 5. Diabetes mellitus, type 2. 6. Chronic back pain. PLAN: We will continue present supportive care. I have done magnesium replacement and will check her electrolytes in the morning. She will continue with her physical therapy for strengthening and conditioning. Her surgical incisions and surgical issues will be per Dr. Solomon, general surgeon. I have encouraged good pulmonary toilets. We will continue to monitor her closely and follow as needed. Dr. Melissa is the collaborating physician available for consultation. #[id number] [facility]
[2018-07-28] MEDS: SITAGLIPTIN PO SCH (17:52)
[2018-07-28] MEDS: METFORMIN HCL PO SCH (17:52)
[2018-07-28] MEDS: [UNRECOGNIZED DRUG - OTHER] PO SCH (17:52)
[2018-07-28] MEDS: ENOXAPARIN SODIUM 40 MG/0.4 ML SYG SUBCU SCH (20:30)
[2018-07-28] MEDS: DONEPEZIL HCL 5 MG TAB PO SCH (20:30)
[2018-07-29] MEDS ORDERED: ATORVASTATIN 20 MG TAB PO ONE (07:45)
[2018-07-29] MEDS: INSULIN LISPRO 100 UNITS/ML PEN SUBCU SCH ×4 (08:27→22:29)
[2018-07-29] MEDS: NON-FORMULARY MEDICATION 1 EA MIS (Letrozole [Letrozole] 2.5 MG) PO SCH (09:01)
[2018-07-29] MEDS: SERTRALINE HCL 50 MG TAB PO SCH (09:02)
[2018-07-29] MEDS: BIFIDOBACTERIUM INFANTIS 4 MG CAP PO SCH (09:02)
[2018-07-29] MEDS: ATORVASTATIN 10 MG TAB PO SCH (09:03)
[2018-07-29] MEDS: LOSARTAN POTASSIUM 25 MG TAB PO SCH (09:04)
[2018-07-29] MEDS: SODIUM CHLORIDE 0.9% (FLUSH) 10 ML SYG IV SCH ×2 (09:04→20:26)
[2018-07-29] MEDS: HYDROcodone 5MG/APAP 325MG 1 EA TAB PO PRN ×3 (10:25→20:39)
--- NOTE | 2018-07-29 12:09 | PN ---
DATE: 07/29/18 SUPERVISING PHYSICIAN: Alec Melissa M.D. SUBJECTIVE: The patient is lying in bed. She is getting a bath. Continues with complaint of weakness but is feeling better. She does have some pain at the surgical incision, but the pain medications are controlling it. She would like to move to a room with a private bathroom. I told her I would speak with her nurse. Otherwise no complaints of chest pain, shortness of breath, nausea or vomiting. OBJECTIVE: She is afebrile, heart rate 63, blood pressure 126/64, respiratory rate 18, O2 sat 92% on room air. RESPIRATORY: Essentially clear to auscultation bilaterally. CARDIAC: Regular rate and rhythm. CHEST: She has the surgical wrapping on her chest with 1 J-P drain that is draining a very small amount of serous type fluid. The dressing is dry and intact. GASTROINTESTINAL: Abdomen is soft, nondistended, non-tender. Bowel sounds are positive. NEUROLOGIC: She is awake and alert, oriented to person and place only. LABORATORY: Blood sugars have run from 135 to 211. Electrolytes are basically within normal limits. Magnesium 1.8. It was 1.7 yesterday and she received 2 grams of magnesium. All other labs and films have been reviewed via the EMR. ASSESSMENT: 1. Delirium of unknown etiology with second Emergency Room visit within the last week due to removal of suction bulbs from LIANE drains. 2. Electrolyte imbalance with severe hypomagnesemia on admission with need for continued correction since admission. Today's magnesium is 1.8. 3. Recent left modified radical mastectomy on 07/19/18. 4. Gastroesophageal reflux disease. 5. Diabetes mellitus, type 2. 6. Chronic back pain. PLAN: We will continue present supportive care. Do a BMP and magnesium in the morning to monitor her electrolytes. Will plan to Swing the patient tomorrow for wound care, strengthening and conditioning. She will be moved to another room per her nurse with a private bathroom. Otherwise we will continue to monitor closely and follow as needed. Dr. Solomon is to be called for any surgical and wound issues. #[id number] [facility]
[2018-07-29] MEDS: IV SET AND CAP CHANGE INJ INJ SCH (15:52)
[2018-07-29] MEDS: METFORMIN HCL PO SCH (16:52)
[2018-07-29] MEDS: [UNRECOGNIZED DRUG - OTHER] PO SCH (16:52)
[2018-07-29] MEDS: SITAGLIPTIN PO SCH (16:52)
[2018-07-29] MEDS: DONEPEZIL HCL 5 MG TAB PO SCH (20:25)
[2018-07-29] MEDS: ENOXAPARIN SODIUM 40 MG/0.4 ML SYG SUBCU SCH (20:25)
[2018-07-30 06:40] VITALS: TEMP 98.4
[2018-07-30] MEDS: INSULIN LISPRO 100 UNITS/ML PEN SUBCU SCH ×2 (08:14→11:55)
[2018-07-30] MEDS: LOSARTAN POTASSIUM 25 MG TAB PO SCH (08:23)
[2018-07-30] MEDS: BIFIDOBACTERIUM INFANTIS 4 MG CAP PO SCH (08:24)
[2018-07-30] MEDS: ATORVASTATIN 10 MG TAB PO SCH (08:24)
[2018-07-30] MEDS: NON-FORMULARY MEDICATION 1 EA MIS (Letrozole [Letrozole] 2.5 MG) PO SCH (08:24)
[2018-07-30] MEDS: SERTRALINE HCL 50 MG TAB PO SCH (08:24)
[2018-07-30] MEDS: SODIUM CHLORIDE 0.9% (FLUSH) 10 ML SYG IV SCH (08:25)
[2018-07-30 09:45] VITALS: BP 131/61
[2018-07-30] MEDS ORDERED: MAGNESIUM SULFATE PREMIX 2GM 2 GM in PREMIX BAG 1 BAG IVPB ONE (10:20)
[2018-07-30] MEDS ORDERED: MAGNESIUM OXIDE 400 MG TAB PO SCH (10:30)
[2018-07-30] MEDS ORDERED: MAGNESIUM SULFATE PREMIX 2GM 50 ML IVPB ONE (10:31)
[2018-07-30] MEDS: HYDROcodone 5MG/APAP 325MG 1 EA TAB PO PRN (11:16)
[2018-07-30 12:13] VITALS: O2SAT 91
--- NOTE | 2018-07-31 08:44 | DS ---
SUPERVISING PHYSICIAN: Canelo Damon MD DISCHARGE FROM ACUTE CARE ADMISSION DIAGNOSES: 1. Delirium of unknown etiology with second Emergency Room visit within the last week due to removal of suction bulbs from LIANE drains status post mastectomy procedure. 2. Electrolyte imbalance with severe hypomagnesemia,. 3. Recent left modified radical mastectomy on 07/19/18. 4. Gastroesophageal reflux disease. 5. Diabetes mellitus, type 2. 6. Chronic back pain. DISCHARGE DIAGNOSES: 1. Delirium likely due to acute exacerbation of dementia from pain medications status post modified radical mastectomy on 07/19/18. 2. 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 3. Electrolyte imbalance to include hypomagnesemia requiring parenteral replacement as well as initiation of p.o. supplementation. 4. Left modified radical mastectomy on 07/19/18. 5. Gastroesophageal reflux disease, stable. 6. Diabetes mellitus type 2, stable. 7. Chronic back pain. REASON FOR HOSPITALIZATION: Ms. Navarro is a 72-year-old female patient who presented to the Emergency Room secondary to her LIANE drain bulbs coming off during the night. She is unsure how it actually happened and it was the second time in the last few days this has done so. She had a left mastectomy on 07/19/18 and over the weekend, she came in due to this same problem. The bulbs were replaced and she was sent back home. She does not remember what happened. She does have some mild dementia and is acting more confused than normal at the time of admission. The patient lives alone. She is diabetic. She takes pain medication. She did not know where she was in the Emergency Room but was pleasant and cooperative with no obvious neurological deficits. Her CBC was basically within normal limits, sodium was slightly low at 38 with potassium 3.9, magnesium was 1.3. BNP showed elevated at 322. The patient was then admitted to the medical/surgical floor for further treatment and evaluation of acute delirium likely secondary to ongoing dementia worsened by pain management. LABORATORY: CBC on admission and discharge showed to be within normal limits with no left shift. Chemistries on admission showed normal electrolytes with a BUN of 8, creatinine 0.69. Liver functions all showed to be within normal limits. Glucose 243. She did have an elevated BNP of 322, troponin 0.05 times 3 separate draws every 6 hours. Potassium was normal at 3.8. Blood sugars remained stable between 104 and 222. Prior to discharge her chemistries were showing normal electrolytes, once again with a BUN of 9, creatinine 0.67, magnesium was low initially on admission at 1.3 and had gone up to 1.9 after replacement but once again decreased and was down to 1.6 prior to discharge requiring initiation of p.o. and a single dose of parenteral replacement. RADIOLOGY: Chest x-ray in the Emergency Department prior to admission per radiology interpretation of a single view chest showed a prominent heart without congestive heart failure. She then had a CT of the head without contrast and per radiology interpretation showed senescent brain and chronic microvascular ischemic changes with moderate progression since previous study but no acute intracranial pathological processes were noted. HOSPITAL COURSE: Ms. Navarro was admitted for acute delirium on 07/26 as well as low magnesium. She was started on IV fluids and was closely monitored neurologically. Her home medications were all resumed during hospitalization and she was showing to be close to baseline mental status. One of the LIANE drains was removed by Dr. Solomon. Her wound care was continued with Dr. Solomon's orders. She showed no complications but was continuing to show some physical decline and was requiring admission for ongoing physical therapy and rehabilitation efforts to Swing Bed. PLAN: Ms. Navarro is going to be discharged from acute care and admitted to Swing Bed on same day for disuse myopathy and reconditioning and physical therapy. We will resume diabetic diet. Physical therapy will evaluate and treat and once she is discharge she will certainly need to followup with her primary care physician who is Dr. Melissa. She will also need to followup with Dr. Solomon in regards to the LIANE drain that is in place currently. #[id number] [facility]
== END 2018-07-30 13:47 | DRG 884 ==
LOC: ER 08:48 → MS 11:39
PROVIDERS: ADMIT Nurse Practitioner Acute Care; ATTEND Nurse Practitioner Family
DX: F03.90 Unspecified dementia, unspecified severity, without behavioral disturbance, psychotic disturbance, mood disturbance, and anxiety (principal); F05 Delirium due to known physiological condition; T50.995A Adverse effect of other drugs, medicaments and biological substances, initial encounter; E83.42 Hypomagnesemia; K21.9 Gastro-esophageal reflux disease without esophagitis; E11.9 Type 2 diabetes mellitus without complications; G89.29 Other chronic pain; M54.9 Dorsalgia, unspecified

== ENCOUNTER 2018-07-30 13:35 | Inpatient (IN) | payer MEDICARE, BC ==
[2018-07-30] MEDS ORDERED: ACETAMINOPHEN 500 MG TAB PO PRN (13:56)
[2018-07-30] MEDS ORDERED: MAGNESIUM HYDROXIDE 30 ML UD PO PRN (13:56)
[2018-07-30] MEDS ORDERED: SODIUM PHOS/BIPHOS ENEMA ADULT 133 ML BTTL PR PRN (13:56)
[2018-07-30] MEDS ORDERED: DEXTROSE 50% 25 GM/50 ML SYG IV PRN (13:58)
[2018-07-30] MEDS ORDERED: GLUCAGON INJ 1 MG VIAL SUBCU PRN (13:58)
[2018-07-30] MEDS: INSULIN LISPRO 100 UNITS/ML PEN SUBCU SCH ×2 (16:35→21:14)
[2018-07-30] MEDS: HYDROcodone 5MG/APAP 325MG 1 EA TAB PO PRN (19:57)
[2018-07-30] MEDS: DONEPEZIL HCL 5 MG TAB PO SCH (20:44)
[2018-07-31] MEDS: INSULIN LISPRO 100 UNITS/ML PEN SUBCU SCH ×4 (07:10→21:01)
[2018-07-31] MEDS ORDERED: ATORVASTATIN 20 MG TAB PO ONE (08:13)
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
[2018-07-31] MEDS ORDERED: ATORVASTATIN 10 MG TAB PO SCH (09:00)
[2018-07-31] MEDS: CALCIUM CARBONATE (ANTACID) 500 MG CHEWABLE TAB PO SCH (09:32)
[2018-07-31] MEDS: DOCUSATE SODIUM 100 MG CAP PO SCH (09:32)
[2018-07-31] MEDS: LOSARTAN POTASSIUM 25 MG TAB PO SCH (09:32)
[2018-07-31] MEDS: SERTRALINE HCL 50 MG TAB PO SCH (09:32)
[2018-07-31] MEDS: NON-FORMULARY MEDICATION 1 EA MIS (Letrozole [Letrozole] 2.5 MG) PO SCH (09:33)
[2018-07-31] MEDS: ENOXAPARIN SODIUM 40 MG/0.4 ML SYG SUBCU SCH ×2 (09:33→21:00)
[2018-07-31] MEDS: HYDROcodone 5MG/APAP 325MG 1 EA TAB PO PRN (13:19)
[2018-07-31] MEDS: SITAGLIPTIN PO SCH (16:55)
[2018-07-31] MEDS: [UNRECOGNIZED DRUG - OTHER] PO SCH (16:55)
[2018-07-31] MEDS: METFORMIN PO SCH (16:55)
[2018-07-31] MEDS: DONEPEZIL HCL 5 MG TAB PO SCH (21:00)
[2018-08-01] MEDS: HYDROcodone 5MG/APAP 325MG 1 EA TAB PO PRN ×2 (00:17→21:20)
[2018-08-01] MEDS: INSULIN LISPRO 100 UNITS/ML PEN SUBCU SCH ×4 (07:45→21:21)
[2018-08-01] MEDS: LOSARTAN POTASSIUM 25 MG TAB PO SCH (08:17)
[2018-08-01] MEDS: SERTRALINE HCL 50 MG TAB PO SCH (08:17)
[2018-08-01] MEDS: DOCUSATE SODIUM 100 MG CAP PO SCH (08:17)
[2018-08-01] MEDS: ATORVASTATIN 20 MG TAB PO SCH (08:17)
[2018-08-01] MEDS: CALCIUM CARBONATE (ANTACID) 500 MG CHEWABLE TAB PO SCH (08:17)
[2018-08-01] MEDS: NON-FORMULARY MEDICATION 1 EA MIS (Letrozole [Letrozole] 2.5 MG) PO SCH (08:18)
[2018-08-01] MEDS: SITAGLIPTIN PO SCH (17:57)
[2018-08-01] MEDS: METFORMIN PO SCH (17:57)
[2018-08-01] MEDS: [UNRECOGNIZED DRUG - OTHER] PO SCH (17:57)
[2018-08-01] MEDS: DONEPEZIL HCL 5 MG TAB PO SCH (21:19)
[2018-08-01] MEDS: ENOXAPARIN SODIUM 40 MG/0.4 ML SYG SUBCU SCH (21:22)
[2018-08-02] MEDS: INSULIN LISPRO 100 UNITS/ML PEN SUBCU SCH ×4 (07:14→21:53)
[2018-08-02] MEDS: LOSARTAN POTASSIUM 25 MG TAB PO SCH (09:34)
[2018-08-02] MEDS: DOCUSATE SODIUM 100 MG CAP PO SCH (09:35)
[2018-08-02] MEDS: CALCIUM CARBONATE (ANTACID) 500 MG CHEWABLE TAB PO SCH (09:35)
[2018-08-02] MEDS: ATORVASTATIN 20 MG TAB PO SCH (09:36)
[2018-08-02] MEDS: SERTRALINE HCL 50 MG TAB PO SCH (09:37)
[2018-08-02] MEDS: NON-FORMULARY MEDICATION 1 EA MIS (Letrozole [Letrozole] 2.5 MG) PO SCH (09:38)
--- NOTE | 2018-08-02 10:47 | PN ---
SUPERVISING PHYSICIAN: Canelo Damon MD DATE: 08/02/18 SUBJECTIVE: The patient is walking in the hallways with physical therapy. Physical therapy seems to think she is getting stronger physically. She does seem confused at times and the family has requested possibility of transferring to a correction after discharge. We will followup on that. Otherwise, she denies any shortness of breath, nausea, vomiting, diarrhea, constipation or chest pain. OBJECTIVE: VITAL SIGNS: Afebrile. Heart rate 65. Blood pressure 119/66. Respiratory rate 18. O2 saturation 98%. CHEST: The patient has a surgical dressing to her upper chest. It is dry and intact. NEUROLOGIC: She is awake and alert. She does get slightly confused at times. LABORATORY: Her blood sugars have run between 105 and 162. All other labs and films have been reviewed via the EMR. ASSESSMENT: 1. Delirium likely due to acute exacerbation of dementia from pain medications status post modified radical mastectomy on 07/19/18. 2. 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 3. Electrolyte imbalance, improved. 4. Left modified radical mastectomy on 07/19/18. 5. Gastroesophageal reflux disease. 6. Diabetes mellitus type 2, stable. 7. Chronic back pain. PLAN: We will continue present supportive care. I have asked Yen to explore discharge plan and possibility of going to the correction. She will need to speak with the family and hopefully we can accommodate their wishes. Dr. Solomon will see her for dressing changes and any postoperative issues will be deferred to him. Otherwise, we will monitor close and follow as needed. We will plan for discharge tomorrow or the next day. #[id number] [facility]
[2018-08-02] MEDS: HYDROcodone 5MG/APAP 325MG 1 EA TAB PO PRN ×2 (13:02→19:58)
[2018-08-02] MEDS: LOPERAMIDE CAP 2 MG CAP PO PRN ×2 (13:05→23:30)
[2018-08-02] MEDS: [UNRECOGNIZED DRUG - OTHER] PO SCH (17:21)
[2018-08-02] MEDS: METFORMIN PO SCH (17:21)
[2018-08-02] MEDS: SITAGLIPTIN PO SCH (17:21)
[2018-08-02] MEDS ORDERED: LOPERAMIDE CAP 2 MG CAP PO ONE (17:24)
[2018-08-02] MEDS: DONEPEZIL HCL 5 MG TAB PO SCH (21:58)
[2018-08-02] MEDS: ENOXAPARIN SODIUM 40 MG/0.4 ML SYG SUBCU SCH (21:59)
[2018-08-03] MEDS: INSULIN LISPRO 100 UNITS/ML PEN SUBCU SCH ×4 (07:18→20:49)
[2018-08-03] MEDS: SERTRALINE HCL 50 MG TAB PO SCH (08:55)
[2018-08-03] MEDS: ATORVASTATIN 20 MG TAB PO SCH (08:55)
[2018-08-03] MEDS: DOCUSATE SODIUM 100 MG CAP PO SCH (08:55)
[2018-08-03] MEDS: CALCIUM CARBONATE (ANTACID) 500 MG CHEWABLE TAB PO SCH (08:55)
[2018-08-03] MEDS: NON-FORMULARY MEDICATION 1 EA MIS (Letrozole [Letrozole] 2.5 MG) PO SCH (08:55)
[2018-08-03] MEDS: LOSARTAN POTASSIUM 25 MG TAB PO SCH (08:55)
[2018-08-03] MEDS: SITAGLIPTIN PO SCH (17:03)
[2018-08-03] MEDS: [UNRECOGNIZED DRUG - OTHER] PO SCH (17:03)
[2018-08-03] MEDS: METFORMIN PO SCH (17:03)
[2018-08-03] MEDS: LOPERAMIDE CAP 2 MG CAP PO PRN (18:54)
[2018-08-03] MEDS: HYDROcodone 5MG/APAP 325MG 1 EA TAB PO PRN (20:45)
[2018-08-03] MEDS: DONEPEZIL HCL 5 MG TAB PO SCH (20:46)
[2018-08-03] MEDS: ENOXAPARIN SODIUM 40 MG/0.4 ML SYG SUBCU SCH (20:47)
[2018-08-04] MEDS: LOPERAMIDE CAP 2 MG CAP PO PRN ×2 (00:47→08:56)
[2018-08-04] MEDS: INSULIN LISPRO 100 UNITS/ML PEN SUBCU SCH ×2 (07:37→11:54)
[2018-08-04] MEDS: SERTRALINE HCL 50 MG TAB PO SCH (08:59)
[2018-08-04] MEDS: NON-FORMULARY MEDICATION 1 EA MIS (Letrozole [Letrozole] 2.5 MG) PO SCH (08:59)
[2018-08-04] MEDS: ATORVASTATIN 20 MG TAB PO SCH (08:59)
[2018-08-04] MEDS: CALCIUM CARBONATE (ANTACID) 500 MG CHEWABLE TAB PO SCH (08:59)
[2018-08-04] MEDS: LOSARTAN POTASSIUM 25 MG TAB PO SCH (08:59)
[2018-08-04] MEDS: DOCUSATE SODIUM 100 MG CAP PO SCH (08:59)
[2018-08-04 10:28] VITALS: BP 162/74; TEMP 97.4; O2SAT 97
--- NOTE | 2018-08-06 21:02 | DS ---
SUPERVISING PHYSICIAN: Canelo Damon M.D. ADMISSION DIAGNOSIS: 1. Delirium due to acute exacerbation of dementia with pain medication status post modified radical mastectomy on 07/19/18. 2. 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 3. Electrolyte imbalance including hypomagnesemia requiring parenteral replacement as well as initiation of p.o. supplementation. 4. Left modified radical mastectomy on 07/19/18. 5. Gastroesophageal reflux disease, stable. 6. Diabetes mellitus type 2, stable. 7. Chronic back pain. DISCHARGE DIAGNOSIS: 1. Delirium due to acute exacerbation of dementia with pain medication status post modified radical mastectomy on 07/19/18, improved. 2. 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 3. Electrolyte imbalance, improved and back to baseline. 4. Left modified radical mastectomy on 07/19/18. 5. Gastroesophageal reflux disease, stable. 6. Diabetes mellitus type 2, stable. 7. Chronic back pain, stable. REASON FOR HOSPITALIZATION: Ms. Navarro is a 72-year-old female patient who presented to the Emergency Room initially for Swing Bed admission for having pulled her J-P drains out during the night. She was unsure how it actually happened and on the second time in the last few days prior to admission she had done it again. She had a left mastectomy on 07/19/18 and over the weekend, she came back due to the same problems. The bulbs were then replaced and she was sent back home. She does not remember again what happened. She does have some mild dementia and was acting more confused than normal at the time of admission. The patient lives alone and is diabetic. She takes pain medication. She did not know where she was in the Emergency Room but was pleasant and cooperative with no obvious neurological deficits. Her CBC was basically within normal limits, sodium was slightly low at 138 with potassium 3.9, magnesium was 1.3. BNP showed elevated at 322. The patient was then admitted to the medical/surgical floor for further treatment and evaluation of acute delirium likely secondary to worsening pain management. She had improved dramatically but due to significant disuse myopathy and need for ongoing reconditioning, the patient was admitted to Swing Bed program for ongoing physical therapy. LABORATORY: Laboratories on Swing Bed were blood sugars that ranged from 109 to 152. HOSPITAL COURSE: Ms. Navarro was admitted to Swing Bed on 07/30/18. She did well with her physical therapy and had met her goals, and arrangements have been made for the patient to go home to the care of her daughter. PHYSICAL EXAMINATION: The patient was seen and examined on day of discharge. GENERAL: She was alert in no acute distress. CHEST: Lungs were clear to auscultation. HEART: Regular rate and rhythm. ABDOMEN: Soft, non-tender. Positive bowel sounds. EXTREMITIES: Without any clubbing, cyanosis or edema. NEUROLOGIC: She is alert and oriented times three with no neurological deficits noted. PLAN: Ms. Navarro was discharged on 08/04/18 to have close followup with both Dr. Solomon and her primary care physician, Dr. Melissa, after discharge. She was to have [facility] and continue with outpatient physical therapy. She was told to return to the hospital should she have any concerning symptoms. Her sutures and J-P drain had been removed prior to discharge by Dr. Solomon. Diet was diabetic diet as tolerated. Activity is to increase as tolerated, walk with a walker as per Physical Therapy. Medications at discharge : No new medications prescribed at discharge. DISPOSITION: The patient was discharged to the care of her daughter. Condition at discharge was stable and improved. #[id number] [facility]
== END 2018-08-04 11:50 | disposition home health service (06) | DRG 880 ==
LOC: MS 13:35
PROVIDERS: ADMIT Nurse Practitioner Family; ATTEND Nurse Practitioner Family
DX: F05 Delirium due to known physiological condition (principal); K21.9 Gastro-esophageal reflux disease without esophagitis; F19.921 Other psychoactive substance use, unspecified with intoxication with delirium; E11.9 Type 2 diabetes mellitus without complications; G89.29 Other chronic pain; F03.90 Unspecified dementia, unspecified severity, without behavioral disturbance, psychotic disturbance, mood disturbance, and anxiety

== ENCOUNTER → 2018-08-13 | Outpatient (CLI) | payer MEDICARE, BC | LOC: GMAE 18:20 | PROVIDERS: ATTEND Family Medicine | DX: E83.42 Hypomagnesemia (principal) ==

== ENCOUNTER → 2018-08-29 | Outpatient (CLI) | payer MEDICARE, BC | LOC: GMAE 12:44 | PROVIDERS: ATTEND Family Medicine | DX: E83.42 Hypomagnesemia (principal) ==

== ENCOUNTER → 2018-10-03 | Outpatient (CLI) | payer MEDICARE, BC | LOC: GMAE 12:59 | PROVIDERS: ATTEND Family Medicine | DX: E83.42 Hypomagnesemia (principal) ==

== ENCOUNTER → 2018-10-30 | Outpatient (CLI) | payer MEDICARE, BC | LOC: GMAE 17:01 | PROVIDERS: ATTEND Family Medicine | DX: E83.42 Hypomagnesemia (principal) ==

== ENCOUNTER 2018-10-31 11:50 | Emergency (ER) | payer MEDICARE, BC ==
--- NOTE | 2018-10-31 12:03 | ED.PDOC ---
History of Present Illness - General Time Seen by Provider: 10/31/18 12:01 Source: patient, RN notes reviewed, EMS notes reviewed Additional Information: 73 YEAR OLD WHITE FEMALE PRESENTS TO THE ED WITH COMPLAINTS OF LEFT SHOULDER PAIN AFTER A ACCIDENTAL FALL AT HOME JUST PRIOR TO ARRIVAL SHE WAS TRYING TO REACH FOR SOMETHING WHEN SHE TRIPPRED AND FELL SUSTAINING AN INJURY TOT HE LEFT SHOULDER - History of Present Illness Timing/Duration: 1/2 hour Severity: moderate Improving Factors: immobilization, rest Worsening Factors: movement Associated Symptoms: denies symptoms Allergies/Adverse Reactions: Allergies CI Pigment Blue 63 [From Cymbalta] Adverse Reaction (Severe, Verified 10/31/18 12:09) Other increased depression Duloxetine [From Cymbalta] Adverse Reaction (Severe, Verified 10/31/18 12:09) Other increased depression Home Medications: Ambulatory Orders Atorvastatin Calcium [Lipitor] 20 mg PO DAILY 11/12/14 Sitagliptin-Metformin HCl [Janumet 50-1000 mg] 2 tab PO 1700 11/12/14 Calcium 600 mg PO DAILY 07/19/18 Letrozole 2.5 mg PO DAILY 07/19/18 Probiotic Product [Probiotic] 1 tab PO DAILY 07/19/18 Donepezil HCl [Aricept] 10 mg PO BEDTIME tab 07/21/18 Glucagon Inj 0 mg SUBCU PRN PRN vial 07/21/18 HYDROcodone 5MG/APAP 325MG [Marcellus 5/325] 1 - 2 ea PO Q4H PRN #30 tab 07/21/18 Losartan Potassium [Cozaar] 50 mg PO DAILY tab 07/21/18 Sertraline HCl [Zoloft] 100 mg PO DAILY 07/26/18 Acetamin W/Cod #3 Tab [Tylenol w/CODEINE #3] 1 ea PO Q6HR PRN #40 tab 10/31/18 Review of Systems - Review of Systems Constitutional: States: no symptoms reported EENTM: States: no symptoms reported Respiratory: States: no symptoms reported Cardiology: States: no symptoms reported Gastrointestinal/Abdominal: States: no symptoms reported Genitourinary: States: no symptoms reported Musculoskeletal: States: see HPI, joint pain, joint swelling Skin: States: no symptoms reported Neurological: States: no symptoms reported Endocrine: States: no symptoms reported Hematologic/Lymphatic: States: no symptoms reported Past Medical History (General) - Patient Medical History Hx Seizures: No Hx Stroke: No Hx Asthma: No Hx of COPD: No Hx Congestive Heart Failure: No Hx Pacemaker: No Hx Hypertension: No Hx Diabetes: Yes Hx Cancer: Yes - breast Hx MRSA: No - Vaccination History Hx Influenza Vaccination: Yes - 2013 Hx Pneumococcal Vaccination: Yes - unknown - Social History Hx Alcohol Use: No Hx Substance Use: No Hx Physical Abuse: No Hx Emotional Abuse: No Family Medical History - Family History Mother Family History: No Known Living Status: Hx Family Asthma: No Hx Family Congestive Heart Failure: No Hx Family Hypertension: No Hx Family Stroke: No Hx Cardiac Disease: No Hx Family Diabetes: No Hx Family Cancer: Yes - liver and colon Father Family History: No Known Living Status: Hx Family Asthma: No Hx Family Congestive Heart Failure: No Hx Family Hypertension: No Hx Family Stroke: Yes Hx Cardiac Disease: No Hx Family Diabetes: No Hx Family Cancer: No Physical Exam - Physical Exam General Appearance: Alert, Anxious Eye Exam: bilateral normal Ears, Nose, Throat: hearing grossly normal, normal ENT inspection, normal pharynx, abnormal TM (R) Neck: non-tender, full range of motion, supple Respiratory: chest non-tender, lungs clear, normal breath sounds Cardiovascular/Chest: normal peripheral pulses, regular rate, rhythm, no edema, no gallop, no JVD Gastrointestinal/Abdominal: normal bowel sounds, non tender, soft, no organomegaly Back Exam: no CVA tenderness, no vertebral tenderness Extremity: other - LEFT SHOULDER THERE IS DIFFUSE SWELLING OF THE JOINT NO NEUROVASCULAR DEFICIT NOTED Skin Exam: normal color Progress - Results/Orders Results/Orders: X RAY LEFT SHOULDER REVIEWED FRACTURE LEFT HUMEROL HEAD NOTED WILL PROVIDE SLING AND SWATH ORTHOPEDIC FOLLOW UP IN 1 WEEK Departure - Departure Clinical Impression: Fracture of bone of left shoulder, Fracture of head of humerus Time of Disposition: 12:43 Disposition: Discharge to Home or Self Care Condition: Good Diet: resume usual diet - WILL PROVIDE SLING AND SWATH Referrals: RUTHIE MENJIVAR MD [Primary Care Provider] - 1-2 Weeks Prescriptions: Acetamin W/Cod #3 Tab [Tylenol w/CODEINE #3] 1 ea PO Q6HR PRN #40 tab PRN Reason: Mild To Moderate Pain Home Medications: Ambulatory Orders Atorvastatin Calcium [Lipitor] 20 mg PO DAILY 11/12/14 Sitagliptin-Metformin HCl [Janumet 50-1000 mg] 2 tab PO 1700 11/12/14 Calcium 600 mg PO DAILY 07/19/18 Letrozole 2.5 mg PO DAILY 07/19/18 Probiotic Product [Probiotic] 1 tab PO DAILY 07/19/18 Donepezil HCl [Aricept] 10 mg PO BEDTIME tab 07/21/18 Glucagon Inj 0 mg SUBCU PRN PRN vial 07/21/18 HYDROcodone 5MG/APAP 325MG [Marcellus 5/325] 1 - 2 ea PO Q4H PRN #30 tab 07/21/18 Losartan Potassium [Cozaar] 50 mg PO DAILY tab 07/21/18 Sertraline HCl [Zoloft] 100 mg PO DAILY 07/26/18 Acetamin W/Cod #3 Tab [Tylenol w/CODEINE #3] 1 ea PO Q6HR PRN #40 tab 10/31/18 Additional Instructions: PLEASE FOLLOW UP WITH DR TAN
[2018-10-31] MEDS ORDERED: MORPHINE SULFATE INJ 10 MG/ML VIAL IM ONE (12:07)
[2018-10-31 12:09] VITALS: BP 209/103; TEMP 98.9; O2SAT 96
--- NOTE | 2018-10-31 12:50 | RAD ---
EXAM DESCRIPTION: Radiographs of the left Shoulder:XR/CR/DR CLINICAL HISTORY: TRAUMA COMPARISON: None TECHNIQUE: 2 views. External rotation. Transthoracic image. FINDINGS: Complete fracture of the surgical neck of the left humerus with varus deformity and the distal component of the fracture displaced superiorly and anteriorly on the proximal component. Anterior fracture lines also noted through the greater tuberosity. No glenohumeral joint dislocation. Arthrosis in the AC joint. IMPRESSION: Displaced fracture of the surgical neck of the left humerus with varus deformity. Anterior and superior displacement of the humeral shaft. Fracture also through the greater tuberosity. No glenohumeral dislocation. Electronically signed by: Fidencio Bell MD 10/31/2018 12:48 PM [facility]
== END 2018-10-31 14:50 | disposition home or self-care (01) ==
LOC: ER 11:50
DX: S42.212A Unspecified displaced fracture of surgical neck of left humerus, initial encounter for closed fracture (principal); S42.252A Displaced fracture of greater tuberosity of left humerus, initial encounter for closed fracture; E11.9 Type 2 diabetes mellitus without complications; Z85.3 Personal history of malignant neoplasm of breast; Z79.899 Other long term (current) drug therapy; Z88.8 Allergy status to other drugs, medicaments and biological substances; W18.39XA Other fall on same level, initial encounter; Y92.009 Unspecified place in unspecified non-institutional (private) residence as the place of occurrence of the external cause
CPT/HCPCS: 73030; J2270

== ENCOUNTER → 2018-11-26 | Outpatient (CLI) | payer MEDICARE, BC ==
--- NOTE | 2018-11-26 12:13 | RAD ---
EXAM DESCRIPTION: Humerus,Left CLINICAL HISTORY: 73 years Female, CLOSED FRACTURE OF LEFT HUMERUS COMPARISON: October 31, 2018. TECHNIQUE: 3 views of the left shoulder obtained. FINDINGS: Persistent displaced and impacted fracture through the surgical neck of left humerus with varus deformity. Again noted is lateral displacement of the humeral head. Severe narrowing of the glenohumeral joint space noted. Moderate degenerative disease of the AC joint are also noted. The overlying soft tissues appear grossly unremarkable. IMPRESSION: 1. Persistent displaced and impacted fracture through the surgical neck of the left humerus with valgus deformity. Persistent lateral displacement of the humeral head with severe narrowing of glenohumeral joint space. 2. Overall no significant interval change noted since prior exam dated October 31, 2018, except for minimal callus formation. Electronically signed by: Boo Gibson MD 11/26/2018 12:[address] [facility]
--- NOTE | 2018-11-26 12:17 | RAD ---
EXAM DESCRIPTION: Shoulder,Left 2 or More Views CLINICAL HISTORY: 73 years Female, UNSPECIFIED FRACTURE OF SHAFT LEFT ARM COMPARISON: 07/31/2019. FINDINGS: Persistent displaced and impacted fracture through the surgical neck of the left humerus with varus deformity. Slight interval callus formation is noted in comparison to prior exam. Persistent lateral subluxation of the humeral head in comparison to the shaft noted. The overlying soft tissues appear grossly unremarkable. IMPRESSION: 1. Persistent displaced and impacted fracture through the surgical neck of the left humerus with varus deformity. Slight interval callus formation noted in comparison to the recent radiograph dated October 31, 2018. Electronically signed by: Boo Gibson MD 11/26/2018 12:15 PM [facility]
== END ==
LOC: RAD 09:56
PROVIDERS: ATTEND Orthopaedic Surgery
DX: S42.302D Unspecified fracture of shaft of humerus, left arm, subsequent encounter for fracture with routine healing (principal)

== ENCOUNTER → 2018-12-10 | Outpatient (CLI) | payer MEDICARE, BC ==
--- NOTE | 2018-12-10 16:08 | RAD ---
EXAM DESCRIPTION: Humerus,Left CLINICAL HISTORY: 73 years Female, UNSP FX SHAFT OF HUMERUS, LEFT ARM, SUBS FOR FX W COMPARISON: Previous x-rays left shoulder November 26, 2018 FINDINGS: Fractured proximal left humerus across the surgical neck with bridging callus consistent with partial healing. Humeral head fragment is displaced and rotated posteriorly. IMPRESSION: Healing fracture proximal left humerus. Electronically signed by: Zeke Branch MD 12/10/2018 4:05 PM [facility]
--- NOTE | 2018-12-10 17:06 | RAD ---
EXAM DESCRIPTION: Shoulder,Left 2 or More Views CLINICAL HISTORY: UNSP FX SHAFT OF HUMERUS, LEFT ARM, SUBS FOR FX W COMPARISON: November 26, 2018 TECHNIQUE: Two views of the left shoulder. IMPRESSION: Healing surgical neck fracture of the left humerus. Impaction unchanged. Angulation unchanged. Progressive callus development. Incomplete healing. Electronically signed by: Gus Squires MD 12/10/2018 5:03 PM [facility]
== END ==
LOC: RAD 09:27
PROVIDERS: ATTEND Orthopaedic Surgery
DX: S42.294D Other nondisplaced fracture of upper end of right humerus, subsequent encounter for fracture with routine healing (principal)

== ENCOUNTER → 2019-01-03 | Outpatient (CLI) | payer MEDICARE, BC ==
--- NOTE | 2019-01-04 08:36 | RAD ---
EXAM: Humerus,Left CLINICAL HISTORY: S42.302D COMPARISON STUDY: December 10, 2018 TECHNICAL: AP and lateral x-rays of the left humerus FINDINGS: There is ongoing healing of the left proximal humeral fracture. Fracture lines are less distinct and there is bridging callus. There is no dislocation of the glenohumeral joint or elbow. No new fractures identified. IMPRESSION: Ongoing fusion of the left proximal humeral fracture. Electronically signed by: John Paul Cordon MD 01/04/2019 8:33 AM CDT
== END ==
LOC: RAD 09:33
PROVIDERS: ATTEND Orthopaedic Surgery
DX: S42.302D Unspecified fracture of shaft of humerus, left arm, subsequent encounter for fracture with routine healing (principal)

== ENCOUNTER → 2019-01-21 | Outpatient (CLI) | payer MEDICARE, BC | LOC: GMAE 16:46 | PROVIDERS: ATTEND Family Medicine | DX: E83.42 Hypomagnesemia (principal) ==

== ENCOUNTER → 2019-01-24 | Outpatient (CLI) | payer MEDICARE, BC ==
--- NOTE | 2019-01-24 15:18 | RAD ---
EXAM DESCRIPTION: Humerus,Left CLINICAL HISTORY: S42.302D COMPARISON: 03 January 2019 TECHNIQUE: 2 views left FINDINGS: A fracture of the region of the left humeral surgical neck is observed. Bridging callus formation is observed at the fracture site. No new injury is observed. Alignment is unchanged. Small foreign bodies are seen to overlie the region of the shoulder. These are presumed to be in clothing. IMPRESSION: Healing fracture of the surgical neck of the left humerus Electronically signed by: Asif Vo MD 01/24/2019 3:15 PM CDT
== END ==
LOC: RAD 09:28
PROVIDERS: ATTEND Orthopaedic Surgery
DX: S42.212D Unspecified displaced fracture of surgical neck of left humerus, subsequent encounter for fracture with routine healing (principal)

== ENCOUNTER → 2019-04-03 | Outpatient (CLI) | payer MEDICARE, BC | LOC: GMAE 15:48 | PROVIDERS: ATTEND Family Medicine | DX: E83.42 Hypomagnesemia (principal); E11.9 Type 2 diabetes mellitus without complications ==

== ENCOUNTER 2019-04-25 18:42 | Emergency (ER) | payer MEDICARE, BC ==
--- NOTE | 2019-04-25 20:09 | ED.PDOC ---
History of Present Illness - General Chief Complaint: Trauma Stated Complaint: s/p fall Time Seen by Provider: 04/25/19 18:53 Source: patient, family - History of Present Illness Initial Comments: Stefanie Navarro 73 y/o female stated she rolled down her bed today and fell on the floor unable to get up.Her friend came to check on her today was noted laying down on the floor with emesis on her shirt. Occurred: this evening Severity: moderate Pain Location: neck Method of Injury: fall Improving Factors: rest Worsening Factors: movement Loss of Consciousness: no loss of consciousness Associated Symptoms (Fall): other - see hpi Allergies/Adverse Reactions: Allergies CI Pigment Blue 63 [From Cymbalta] Adverse Reaction (Severe, Verified 10/31/18 12:09) Other increased depression Duloxetine [From Cymbalta] Adverse Reaction (Severe, Verified 10/31/18 12:09) Other increased depression Home Medications: Ambulatory Orders Atorvastatin Calcium [Lipitor] 20 mg PO DAILY 11/12/14 Sitagliptin-Metformin HCl [Janumet 50-1000 mg] 2 tab PO 1700 11/12/14 Calcium 600 mg PO DAILY 07/19/18 Letrozole 2.5 mg PO DAILY 07/19/18 Probiotic Product [Probiotic] 1 tab PO DAILY 07/19/18 Donepezil HCl [Aricept] 10 mg PO BEDTIME tab 07/21/18 Glucagon Inj 0 mg SUBCU PRN PRN vial 07/21/18 HYDROcodone 5MG/APAP 325MG [[place] 5/325] 1 - 2 ea PO Q4H PRN #30 tab 07/21/18 Losartan Potassium [Cozaar] 50 mg PO DAILY tab 07/21/18 Sertraline HCl [Zoloft] 100 mg PO DAILY 07/26/18 Acetamin W/Cod #3 Tab [Tylenol w/CODEINE #3] 1 ea PO Q6HR PRN #40 tab 10/31/18 Review of Systems - Review of Systems Constitutional: States: no symptoms reported EENTM: States: no symptoms reported Respiratory: States: no symptoms reported Cardiology: States: no symptoms reported Gastrointestinal/Abdominal: States: nausea, vomiting Musculoskeletal: States: neck pain Past Medical History (General) - Patient Medical History Hx Seizures: No Hx Stroke: No Hx Asthma: No Hx of COPD: No Hx Congestive Heart Failure: No Hx Pacemaker: No Hx Hypertension: No Hx Diabetes: Yes Hx Cancer: Yes - breast Hx MRSA: No Surgical History: other - lower back,left mastectomy,hysterectomy - Vaccination History Hx Influenza Vaccination: No Hx Pneumococcal Vaccination: Yes - Social History Hx Tobacco Use: No Hx Alcohol Use: No Hx Substance Use: No Hx Physical Abuse: No Hx Emotional Abuse: No Family Medical History - Family History Mother Family History: No Known Living Status: Hx Family Asthma: No Hx Family Congestive Heart Failure: No Hx Family Hypertension: No Hx Family Stroke: No Hx Cardiac Disease: No Hx Family Diabetes: No Hx Family Cancer: Yes - liver and colon Father Family History: No Known Living Status: Hx Family Asthma: No Hx Family Congestive Heart Failure: No Hx Family Hypertension: No Hx Family Stroke: Yes Hx Cardiac Disease: No Hx Family Diabetes: No Hx Family Cancer: No Physical Exam - Physical Exam General Appearance: Alert, Comfortable, No apparent distress Head Injury: no evidence of injury Eye Exam: bilateral normal ENT Exam: no evidence of ENT injury, no dental injury Neck Exam: normal alignment, normal inspection, paraspinous muscle tender Cardiovascular/Respiratory: regular rate, rhythm, normal breath sounds, no resp iratory distress, murmur - 2nd LICS Gastrointestinal/Abdominal: non tender, soft, no organomegaly Extremity Exam: normal range of motion, non-tender, no pedal edema, pelvis stable Neurologic: alert, oriented x 3 Skin Exam: normal color, warm/dry - Botkins Coma Score Best Eye Response (Justyn): (4) open spontaneously Best Verbal Response (Justyn): (5) oriented Best Motor Response (Botkins): (6) obeys commands Botkins Total: 15 Progress - Progress Progress: 04/25/19 22:54 Vital Signs - 8 hr 04/25/19 04/25/19 04/25/19 19:11 20:00 21:00 Temperature 101.2 F H Pulse Rate [ 101 H 99 H 97 H Right Brachial] Respiratory 20 20 20 Rate Blood Pressure 146/79 123/66 136/73 [Right Arm] O2 Sat by Pulse 95 99 98 Oximetry 04/25/19 22:00 Temperature 102.0 F H Pulse Rate [ 96 H Right Brachial] Respiratory 18 Rate Blood Pressure 128/86 [Right Arm] O2 Sat by Pulse 99 Oximetry D - Results/Orders Results/Orders: 04/25/19 20:09 URINALYSIS Stat 04/25/19 20:11 IV Care:Saline Lock per Protoc QSHIFT 04/25/19 22:00 EKG STAT 04/25/19 22:20 Catheter:Straight .ONCE Laboratory Results - last 24 hr 04/25/19 04/25/19 18:30 20:09 WBC 12.8 H RBC 5.14 Hgb 14.8 Hct 44.4 MCV 86.3 MCH 28.8 MCHC 33.4 RDW 14.6 H Plt Count 200 MPV 8.4 Absolute Neuts (auto) 12.00 H Absolute Lymphs (auto) 0.20 L Absolute Monos (auto) 0.50 Absolute Eos (auto) 0.00 Absolute Basos (auto) 0.10 Neutrophils % 93.8 H Lymphocytes % 1.6 L Monocytes % 3.7 Eosinophils % 0.0 L Basophils % 0.9 PT 10.9 INR 1.09 PTT (SP) 24.5 Sodium 137 Potassium 3.8 Chloride 98 L Carbon Dioxide 24 Anion Gap 18.8 H BUN 15 Creatinine 0.72 BUN/Creatinine Ratio 20.8 H Random Glucose 216 H Serum Osmolality 281.2 Lactic Acid 1.7 Calcium 9.8 Magnesium 1.7 L Total Bilirubin 0.6 Direct Bilirubin 0.1 Indirect Bilirubin 0.5 AST 26 ALT 15 Alkaline Phosphatase 30 L Creatine Kinase 224 H* CK-MB (CK-2) 2.7 CK-MB (CK-2) % Not Reportable Troponin I 0.09 H* Serum Total Protein 7.3 Albumin 4.0 D/W with patient regarding lab test result x rays and c- spine CT that she has heart attack and need to be transferred to hospital with computer network support specialist and preferred to go to [facility] - - EKG/XRAY/CT EKG: Sinus, ST depression Comments: HR-85 XRAY: chest - no acute changes Departure - Departure Clinical Impression: NSTEMI (non-ST elevation myocardial infarction) Fall from bed Qualifiers: Encounter type: initial encounter Qualified Code(s): W06.XXXA - Fall from bed, initial encounter Nausea & vomiting Qualifiers: Vomiting type: unspecified Vomiting Intractability: non-intractable Qualified Code(s): R11.2 - Nausea with vomiting, unspecified Diabetes mellitus Qualifiers: Diabetes mellitus type: type 2 Diabetes mellitus terminal operations manager insulin use: without terminal operations manager use Diabetes mellitus complication status: with unspecified complications Qualified Code(s): E11.8 - Type 2 diabetes mellitus with unspecified complications Closed fracture of humerus with routine healing Qualifiers: Humerus Location: surgical neck Fracture morphology: unspecified fracture morphology Fracture alignment: nondisplaced Laterality: left Qualified Code(s): S42.215D - Unspecified nondisplaced fracture of surgical neck of left humerus, subsequent encounter for fracture with routine healing Time of Disposition: 23:25 Disposition: Transfer to Hospital Condition: Fair Departure Forms: Patient Portal Self Enrollment Referrals: RUTHIE MENJIVAR MD [Primary Care Provider] - 1-2 Weeks Home Medications: Ambulatory Orders Atorvastatin Calcium [Lipitor] 20 mg PO DAILY 11/12/14 Sitagliptin-Metformin HCl [Janumet 50-1000 mg] 2 tab PO 1700 11/12/14 Calcium 600 mg PO DAILY 07/19/18 Letrozole 2.5 mg PO DAILY 07/19/18 Probiotic Product [Probiotic] 1 tab PO DAILY 07/19/18 Donepezil HCl [Aricept] 10 mg PO BEDTIME tab 07/21/18 Glucagon Inj 0 mg SUBCU PRN PRN vial 07/21/18 HYDROcodone 5MG/APAP 325MG [[place] 5/325] 1 - 2 ea PO Q4H PRN #30 tab 07/21/18 Losartan Potassium [Cozaar] 50 mg PO DAILY tab 07/21/18 Sertraline HCl [Zoloft] 100 mg PO DAILY 07/26/18 Acetamin W/Cod #3 Tab [Tylenol w/CODEINE #3] 1 ea PO Q6HR PRN #40 tab 10/31/18 Transfer to Outside Facility - Transfer Information Accepting Provider:: D/W dr. 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
[2019-04-25] MEDS ORDERED: SODIUM CHLORIDE 0.9% 500ML 500 ML IVS ONE (20:11)
--- NOTE | 2019-04-25 21:42 | CT ---
EXAM: CT Cervical Spine Without Intravenous Contrast CLINICAL HISTORY: 73 years old and is Female; fall/neck pain TECHNIQUE: Axial computed tomography images of the cervical spine without intravenous contrast. Sagittal and coronal reformatted images were created and reviewed. This CT exam was performed using one or more of the following dose reduction techniques: automated exposure control, adjustment of the mA and/or kV according to patient size, and/or use of iterative reconstruction technique. COMPARISON: No relevant prior studies available. FINDINGS: Limitations: None. Vertebrae: There is moderate spondylosis and moderate to severe diffuse facet arthrosis. No acute fracture. Discs/spinal canal/neural foramina: There is moderate to severe disc space degeneration C5-C6 and C6-C7. Degenerative disc changes present to lesser extent at all other levels. Multilevel foraminal encroachment present most most notable at C5-C6 and C6-C7. There is canal stenosis C5-C6. Soft tissues: Unremarkable. Vasculature: Left carotid calcification present. IMPRESSION: Chronic changes as above. No acute disease. Electronically signed by: Ирина Nixon MD 04/25/2019 9:40 PM CDT
--- NOTE | 2019-04-25 21:43 | RAD ---
EXAM: XR Pelvis, 1 or 2 Views CLINICAL HISTORY: 73 years old and is Female; fall TECHNIQUE: Frontal view of the pelvis. COMPARISON: No relevant prior studies available. FINDINGS: Limitations: None. Bones/joints: Imaged portions of lumbar spinal fusion hardware intact. No fracture. There is mild symmetrical greater trochanteric spurring. Degenerative changes present in the visualized lumbar segments. No dislocation. Soft tissues: Unremarkable. IMPRESSION: No acute findings. Electronically signed by: Ирина Nixon MD 04/25/2019 9:41 PM CDT
--- NOTE | 2019-04-25 21:44 | RAD ---
EXAM: XR Left Shoulder, 1 View CLINICAL HISTORY: 73 years old and is Female; fall TECHNIQUE: One view of the left shoulder. COMPARISON: 01/24/2019 FINDINGS: Limitations: None. Bones/joints: Healed fracture proximal humerus. Stable a.c. spurring. No dislocation. Soft tissues: Unremarkable. IMPRESSION: Chronic changes as above. No acute disease. Electronically signed by: Ирина Nixon MD 04/25/2019 9:42 PM CDT
--- NOTE | 2019-04-25 21:46 | RAD ---
EXAM DESCRIPTION: XR Chest,1 View CLINICAL HISTORY: 73 years Female fall TECHNIQUE: One view of the chest. COMPARISON: Comparison is made to the prior examination dated 07/26/2018. FINDINGS: There is an acute left humeral neck fracture with proximal displacement of the distal fracture fragment. There is stable left basilar atelectasis vs. scarring. The lungs are otherwise clear without focal consolidation, effusion, or pneumothorax. Stable cardiomediastinal silhouette without evidence of congestive failure. IMPRESSION: Acute left humeral neck fracture. No acute findings in the chest. Electronically signed by: Lily Butcher MD 04/25/2019 9:44 PM CDT
[2019-04-25] MEDS ORDERED: ASPIRIN (CHEWABLE) 81 MG TAB PO ONE (21:47)
[2019-04-25 23:20] VITALS: TEMP 100.5
[2019-04-25 23:43] VITALS: BP 128/69; O2SAT 96
== END 2019-04-25 23:54 | disposition short-term general hospital (02) ==
LOC: ER 18:42
DX: I21.4 Non-ST elevation (NSTEMI) myocardial infarction (principal); S42.215A Unspecified nondisplaced fracture of surgical neck of left humerus, initial encounter for closed fracture; R11.2 Nausea with vomiting, unspecified; E11.8 Type 2 diabetes mellitus with unspecified complications; W06.XXXA Fall from bed, initial encounter; Z85.3 Personal history of malignant neoplasm of breast; Z79.899 Other long term (current) drug therapy; Z88.8 Allergy status to other drugs, medicaments and biological substances; Y92.9 Unspecified place or not applicable
CPT/HCPCS: 36415; 71045; 72125; 72170; 73020; 80048; 80076; 82550; 82553; 83605; 84484; 85025; 85610; 85730; 93005; J7040

== ENCOUNTER → 2019-05-07 | Outpatient (CLI) | payer MEDICARE, BC | LOC: GMAE 14:12 | PROVIDERS: ATTEND Family Medicine | DX: E83.42 Hypomagnesemia (principal); R10.13 Epigastric pain ==

== ENCOUNTER 2019-05-10 00:52 | Emergency (ER) | payer MEDICARE, BC ==
[2019-05-10] MEDS ORDERED: LIDOCAINE HCL 2% (MOUTH-THROAT) 15 ML UD ONE (01:35)
[2019-05-10] MEDS ORDERED: ALUM & MAG HYDROX-SIMETHICONE 30 ML UD ONE (01:35)
[2019-05-10] MEDS: ALUM & MAG HYDROX-SIMETHICONE 30 ML, LIDOCAINE VISCOUS 2% 15 ML PO ONE ×2 (01:42)
[2019-05-10] MEDS: ASPIRIN TABLET 325 MG TAB PO ONE (01:42)
--- NOTE | 2019-05-10 01:57 | RAD ---
Chest 2 view on 05/10/2019 CLINICAL INDICATION: Epigastric pain, chest pain COMPARISON: 04/25/2019 FINDINGS: Posterior fusion hardware is partially imaged in the lower thoracic and upper lumbar spine. Mild vascular calcification is noted in the aorta. The lungs are clear. Cardiac, hilar and mediastinal contours are within normal limits. Pulmonary vascularity is within normal limits. Old left humeral neck fracture is again noted. IMPRESSION: No acute disease. Electronically signed by: Ihsan Jones 05/10/2019 1:56 AM CDT
--- NOTE | 2019-05-10 02:00 | RAD ---
CLINICAL HISTORY: epigastric chest pain COMPARISON: None. TECHNIQUE: XR ABDOMEN 2 VIEWS SUPINE ERECT 05/10/2019 1:02 AM CDT FINDINGS: There is large amount of stool throughout the colon. There are no abnormal radiopaque foreign bodies or abnormal calcifications. Osseous structures are grossly unremarkable. Thoracolumbar fusion was performed. IMPRESSION: Constipation. Electronically signed by: Zachery Sky MD 05/10/2019 1:58 AM CDT
[2019-05-10] MEDS ORDERED: ENOXAPARIN SODIUM 80 MG/0.8 ML SYG SUBCU ONE (02:09)
[2019-05-10] MEDS: PANTOPRAZOLE SODIUM IV 40 MG VIAL IV ONE (02:15)
[2019-05-10] MEDS: NITROGLYCERIN 0.4 MG 25 EA TAB SL ONE (02:15)
[2019-05-10] MEDS: SUCRALFATE 1 GM/10 ML 1 GM UD PO ONE (02:15)
[2019-05-10] MEDS: CLOPIDOGREL 75 MG TAB PO ONE (02:31)
--- NOTE | 2019-05-10 02:51 | ED.PDOC ---
History of Present Illness - General Chief Complaint: Chest Pain/MT Stated Complaint: indigestion and chest pressure Time Seen by Provider: 05/10/19 00:57 Source: patient Exam Limitations: no limitations - History of Present Illness Initial Comments: he patient is a 73-year-old female presenting to the emergency room about 2-1/2 hours after a fairly abrupt onset of substernal chest discomfort. Mild nausea. No diaphoresis. Mild shortness of breath. She has no known history of coronary artery disease but does have a known history of significant valvular disease for which she is followed by in the [facility] She was just recently at [facility] after having fallen at home and developed elevated muscle enzymes. It was determined that the bump in troponin was likely due to dehydration and rhabdomyolysis from her being on the floor. She did not have any chest pain at the time. That was approximately 2-1/2 weeks ago according to her. She does have known gastroesophageal reflux disease. She is not entirely certain that this is not that. She has a history of type 2 diabetes, aortic valvular disease, mild dementia, hypertension, hypercholesterolemia, recurrent urinary tract infections, chronic low back pain, chronic low magnesium levels, and a history of breast cancer with a mastectomy. She reports her only blood thinner is aspirin. She rates her pain at a burning 7 out of 10 upon arrival. It is down to a 2 out of 10 by transfer. No palpitations. No syncope. She was a rest when the discomfort started. Timing/Duration: 1-3 hours Severity: moderate Improving Factors: nothing Worsening Factors: nothing Associated Symptoms: chest pain Allergies/Adverse Reactions: Allergies CI Pigment Blue 63 [From Cymbalta] Adverse Reaction (Severe, Verified 10/31/18 12:09) Other increased depression Duloxetine [From Cymbalta] Adverse Reaction (Severe, Verified 10/31/18 12:09) Other increased depression Home Medications: Ambulatory Orders Atorvastatin Calcium [Lipitor] 20 mg PO DAILY 11/12/14 Sitagliptin-Metformin HCl [Janumet 50-1000 mg] 2 tab PO 1700 11/12/14 Calcium 600 mg PO DAILY 07/19/18 Letrozole 2.5 mg PO DAILY 07/19/18 Probiotic Product [Probiotic] 1 tab PO DAILY 07/19/18 Donepezil HCl [Aricept] 10 mg PO BEDTIME tab 07/21/18 Glucagon Inj 0 mg SUBCU PRN PRN vial 07/21/18 HYDROcodone 5MG/APAP 325MG [[place] 5/325] 1 - 2 ea PO Q4H PRN #30 tab 07/21/18 Losartan Potassium [Cozaar] 50 mg PO DAILY tab 07/21/18 Sertraline HCl [Zoloft] 100 mg PO DAILY 07/26/18 Acetamin W/Cod #3 Tab [Tylenol w/CODEINE #3] 1 ea PO Q6HR PRN #40 tab 10/31/18 Review of Systems - Review of Systems Constitutional: States: no symptoms reported EENTM: States: no symptoms reported Respiratory: States: no symptoms reported Cardiology: States: chest pain Gastrointestinal/Abdominal: States: no symptoms reported Genitourinary: States: no symptoms reported Musculoskeletal: States: no symptoms reported Skin: States: no symptoms reported Neurological: States: no symptoms reported Endocrine: States: no symptoms reported All other Systems: No Change from Baseline Past Medical History (General) - Patient Medical History Hx Seizures: No Hx Stroke: No Hx Asthma: No Hx of COPD: No Hx Cardiac Disorders: No Hx Congestive Heart Failure: No Hx Pacemaker: No Hx Hypertension: Yes Hx Thyroid Disease: No Hx Diabetes: Yes Hx Gastroesophageal Reflux: No Hx Renal Disease: No Hx Cancer: Yes - breast Hx of HIV: No Hx Hepatitis C: No Hx MRSA: No Surgical History: other - Vaccination History Hx Tetanus, Diphtheria Vaccination: No Hx Influenza Vaccination: Yes Hx Pneumococcal Vaccination: Yes Immunizations Up to Date: Yes - Social History Hx Tobacco Use: No Hx Chewing Tobacco Use: No Hx Alcohol Use: No Hx Substance Use: No Hx Substance Use Treatment: No Hx Depression: No Feels Threatened In Home Enviroment: No Feels Threatened In a Relationship: No Hx Physical Abuse: No Hx Emotional Abuse: No Hx Suspected Abuse: No - Activities of Daily Living [facility] (if applicable[facility]:: [facility] (if applicable):: None - Female History Patient is a Female of Child Bearing Age (10 -59 yrs old): No - Triage Comment ED Triage Comment: AAOX4, pt is able to converse and discussed s/s of pain and needs Family Medical History - Family History Mother Family History: No Known Living Status: Hx Family Asthma: No Hx Family Congestive Heart Failure: No Hx Family Hypertension: No Hx Family Stroke: No Hx Cardiac Disease: No Hx Family Diabetes: No Hx Family Cancer: Yes - liver and colon Father Family History: No Known Living Status: Hx Family Asthma: No Hx Family Congestive Heart Failure: No Hx Family Hypertension: No Hx Family Stroke: Yes Hx Cardiac Disease: No Hx Family Diabetes: No Hx Family Cancer: No Physical Exam - Physical Exam General Appearance: Alert, Anxious Eye Exam: bilateral normal Ears, Nose, Throat: hearing grossly normal, normal pharynx Neck: non-tender, supple Respiratory: lungs clear, normal breath sounds, no respiratory distress, no accessory muscle use Cardiovascular/Chest: normal peripheral pulses, regular rate, rhythm, no edema Peripheral Pulses: radial,right: 2+, radial,left: 2+, dorsalis pedis,right: 2+, dorsalis pedis,left: 2+ Gastrointestinal/Abdominal: soft, other - mild epigastric discomfort palpation. Rectal Exam: deferred Back Exam: no CVA tenderness, no vertebral tenderness Extremity: normal range of motion, non-tender, normal inspection, no pedal edema, normal capillary refill Neurologic: chairman & co founder II-XII nml as tested, alert, normal mood/affect, oriented x 3 Skin Exam: normal color Comments: Vital Signs - 24 hr 05/10/19 00:56 Temperature 99.7 F H Pulse Rate [ 76 monitor] Respiratory 76 H Rate Blood Pressure 153/69 [Right Arm] O2 Sat by Pulse 96 Oximetry Progress - Progress Progress: 05/10/19 02:53 the patient is a 73-year-old female presenting to the emergency room with substernal chest pain. She appears to be having a non-ST elevation myocardial infarction. I see no definitive new EKG changes compared to previous EKGs on file. Vital signs have remained stable. Chest pain has decreased from a 7 to a 2. She has received a dose of Plavix, Lovenox and aspirin. She did also receive a dose of nitroglycerin. I'm going to give her a dose of morphine to help her relax for the trip as well. She is being made nothing by mouth for now. She will of course need repeat cardiac enzymes. transferring for specialty evaluation. - Results/Orders Results/Orders: 05/10/19 01:02 Telemetry .CONTINUOUS 05/10/19 01:15 EKG STAT Laboratory Results - last 24 hr 05/10/19 05/10/19 05/10/19 01:02 01:02 01:02 WBC 12.7 H RBC 4.61 Hgb 13.4 Hct 40.7 MCV 88.1 MCH 29.0 MCHC 32.9 L RDW 15.1 H Plt Count 199 MPV 7.2 L Absolute Neuts (auto) 10.10 H Absolute Lymphs (auto) 1.60 Absolute Monos (auto) 0.90 H Absolute Eos (auto) 0.10 Absolute Basos (auto) 0.10 Neutrophils % 79.1 H Lymphocytes % 12.7 L Monocytes % 6.9 Eosinophils % 0.7 L Basophils % 0.6 PT 10.2 INR 1.02 PTT (SP) 22.4 Sodium 139 Potassium 4.3 Chloride 100 L Carbon Dioxide 29 Anion Gap 14.3 BUN 13 Creatinine 0.70 BUN/Creatinine Ratio 18.6 Random Glucose 167 H Serum Osmolality 281.5 Calcium 9.4 Magnesium 1.8 Total Bilirubin 0.4 AST 24 ALT 17 Alkaline Phosphatase 31 L Creatine Kinase 52 CK-MB (CK-2) 5.6 H* CK-MB (CK-2) % Not Reportable Troponin I 0.16 H* B-Natriuretic Peptide 519.0 H* Serum Total Protein 6.1 L Albumin 3.5 Globulin 2.6 Albumin/Globulin Ratio 1.3 Amylase 69 Lipase 76 H chest x-ray shows no acute pathology. EKG shows normal sinus rhythm at 77 bpm. Chronic J-point elevation in anterior leads. Chronic T-wave inversions in leads II, III, and F and aVF. This is when compared to EKGs extending back through 2017. Mild chronic axis deviation. No obvious new ST segment or T-wave changes when compared to previous EKGs. Departure - Departure Clinical Impression: Non-ST elevation MT (NSTEMI) Disposition: Transfer to Hospital Departure Forms: ED Discharge - Pt. Copy, Patient Portal Self Enrollment Referrals: RUTHIE MENJIVAR MD [Primary Care Provider] - 1-2 Weeks Home Medications: Ambulatory Orders Atorvastatin Calcium [Lipitor] 20 mg PO DAILY 11/12/14 Sitagliptin-Metformin HCl [Janumet 50-1000 mg] 2 tab PO 1700 11/12/14 Calcium 600 mg PO DAILY 07/19/18 Letrozole 2.5 mg PO DAILY 07/19/18 Probiotic Product [Probiotic] 1 tab PO DAILY 07/19/18 Donepezil HCl [Aricept] 10 mg PO BEDTIME tab 07/21/18 Glucagon Inj 0 mg SUBCU PRN PRN vial 07/21/18 HYDROcodone 5MG/APAP 325MG [[place] 5/325] 1 - 2 ea PO Q4H PRN #30 tab 07/21/18 Losartan Potassium [Cozaar] 50 mg PO DAILY tab 07/21/18 Sertraline HCl [Zoloft] 100 mg PO DAILY 07/26/18 Acetamin W/Cod #3 Tab [Tylenol w/CODEINE #3] 1 ea PO Q6HR PRN #40 tab 10/31/18 Transfer to Outside Facility - Transfer Information Accepting Provider:: dr pedro Accepting Facility: [facility] Reason for Transfer: required specialist not available
[2019-05-10] MEDS: MORPHINE SULFATE INJ 10 MG/ML VIAL IV ONE (03:04)
[2019-05-10 03:48] VITALS: BP 122/76; TEMP 98.1; O2SAT 91
== END 2019-05-10 03:42 | disposition short-term general hospital (02) ==
LOC: ER 00:52
DX: I21.4 Non-ST elevation (NSTEMI) myocardial infarction (principal); I38 Endocarditis, valve unspecified; I10 Essential (primary) hypertension; E11.9 Type 2 diabetes mellitus without complications; K21.9 Gastro-esophageal reflux disease without esophagitis; F03.90 Unspecified dementia, unspecified severity, without behavioral disturbance, psychotic disturbance, mood disturbance, and anxiety; E78.00 Pure hypercholesterolemia, unspecified; Z88.8 Allergy status to other drugs, medicaments and biological substances; Z79.899 Other long term (current) drug therapy; Z85.3 Personal history of malignant neoplasm of breast; Z87.440 Personal history of urinary (tract) infections; Z79.82 Long term (current) use of aspirin
CPT/HCPCS: 71046; 74019; 80053; 82150; 82550; 82553; 83690; 83735; 83880; 84484; 85025; 85610; 85730; 93005; J1650; J2270

== ENCOUNTER → 2019-05-23 | Outpatient (CLI) | payer MEDICARE, BC ==
--- NOTE | 2019-05-27 17:40 | MAM ---
EXAM DESCRIPTION: 3D Screening BILATERAL : Digital Mammography. CLINICAL HISTORY: 73 years Female SCREENING left breast cancer diagnosed July 2018 with mastectomy. Remote family history of ovarian cancer. Childbirth. Postmenopausal. No HRT. Lifetime risk of developing breast cancer (Tyrer-Cuzick model)(%): Not calculated due to personal history of breast cancer. COMPARISON: Bilateral screening digital breast tomosynthesis 05/08/2018. Bilateral diagnostic digital breast tomosynthesis and targeted left breast ultrasound 05/15/2018. Ultrasound-guided needle core biopsy left breast 05/24/2018. TECHNIQUE: Right breast CC and MLO projection full-field images, digital tomosynthesis mammographic technique. Bilateral digital 2-D full-field MLO images. CAD not available for tomosynthesis or 2-D images. FINDINGS: Right breast parenchymal density pattern is: Scattered areas of fibroglandular density. No skin thickening or nipple retraction. Coarse calcifications anterior right breast. No new focal, stellate mass or density, focal asymmetry , and no suspicious microcalcifications right breast Stable mammograms compared to prior study. IMPRESSION: Benign exam. BIRAD CATEGORY: 2 BENIGN FINDINGS. RECOMMENDATIONS: FOLLOW UP: Routine digital right breast mammographic screening, one year interval from May 2019 Written communication explaining the IMPRESSION and follow-up, will be mailed to the patient and referring health care provider. According to the [employer], yearly mammograms are recommended starting at age 40 and continuing as long as a woman is in good health. Any breast change noted on a breast self-exam should be reported promptly to the patient's healthcare provider. Breast MRI is recommended for women with an approximately 20-25% or greater lifetime risk of breast cancer, including women with a strong family history of breast or ovarian cancer and women who have been treated for Hodgkin's disease. A negative mammographic report should not delay tissue diagnosis in patients with significant clinical history or physical findings. Extremely dense breast tissue limits the sensitivity of digital mammography. Electronically signed by: Fidencio Bell MD 05/27/2019 5:39 PM CDT
== END ==
LOC: MAMMO 15:30
PROVIDERS: ATTEND Family Medicine
DX: Z12.31 Encounter for screening mammogram for malignant neoplasm of breast (principal)

== ENCOUNTER → 2019-06-10 | Outpatient (CLI) | payer MEDICARE, BC ==
--- NOTE | 2019-06-10 11:59 | RAD ---
EXAM DESCRIPTION: Humerus,Left CLINICAL HISTORY: 73 years Female, LEFT HUMERUS FX COMPARISON: Chest radiograph May 10, 2019 and left shoulder series April 25, 2019 FINDINGS: Two views of the left humerus show an old healed or healing left humeral neck fracture, unchanged from prior exams. No acute fracture or malalignment. Mild degenerative changes in the left AC joint including undersurface spurring. Mild degenerative changes in the left glenohumeral joint including joint space narrowing. No soft tissue mass. IMPRESSION: Old healed left humeral neck fracture without acute glenohumeral abnormality. Degenerative changes in the left AC and glenohumeral joints. Electronically signed by: Shyam White MD 06/10/2019 11:58 AM CDT
--- NOTE | 2019-06-10 12:01 | RAD ---
EXAM DESCRIPTION: Shoulder,Right 2 or More Views CLINICAL HISTORY: 73 years Female, SHOULDER PAIN COMPARISON: None. FINDINGS: Four views of the right shoulder show no acute fracture or malalignment. Degenerative changes in the right AC joint including undersurface spurring. Mild to moderate glenohumeral joint space narrowing. The soft tissues are unremarkable. IMPRESSION: Mild to moderate degenerative changes in the left AC and glenohumeral joints. Electronically signed by: Shyam White MD 06/10/2019 11:59 AM CDT
--- NOTE | 2019-06-10 12:03 | RAD ---
EXAM DESCRIPTION: Humerus,Right CLINICAL HISTORY: 73 years Female, RT ARM PAIN COMPARISON: None. FINDINGS: Two views of the right humerus show no acute fracture or malalignment. No focal bone lesion or periostitis. Degenerative changes in the right AC and glenohumeral joints. No radiopaque foreign body or soft tissue gas. Tiny calcification adjacent to the medial humeral condyle is not acute in nature or related to remote injury or chronic/remote medial epicondylitis. IMPRESSION: Degenerative changes without additional right humeral abnormality. Electronically signed by: Shyam White MD 06/10/2019 12:02 PM CDT
== END ==
LOC: RAD 08:41
PROVIDERS: ATTEND Orthopaedic Surgery
DX: S42.302D Unspecified fracture of shaft of humerus, left arm, subsequent encounter for fracture with routine healing (principal); M19.012 Primary osteoarthritis, left shoulder; M19.011 Primary osteoarthritis, right shoulder

== ENCOUNTER 2019-06-18 23:35 | Emergency (ER) | payer MEDICARE, BC ==
[2019-06-18] MEDS ORDERED: CHLORHEXIDINE GLUCONATE 4 % 15 ML UD TOP ONE (23:43)
[2019-06-18] MEDS ORDERED: LIDOCAINE 1% 10 ML VIAL INJ ONE (23:44)
[2019-06-18] MEDS ORDERED: TETANUS,DIPHTHERIA,PERTUSSIS 1 EA SYG IM ONE (23:51)
--- NOTE | 2019-06-19 00:24 | ED.PDOC ---
History of Present Illness - General Chief Complaint: Trauma Stated Complaint: neck pain, head lac Time Seen by Provider: 06/18/19 23:47 Source: patient, RN notes reviewed, Vital Signs reviewed, EMS notes reviewed, RN/MD - History of Present Illness Initial Comments: Patient is a 73 yo F with hx of dementia and gait disturbance alleviated with walker presenting for evaluation of GLF while walking to the restroom. Per EMS, the patient was at her alf and fell while walking to the restroom. Staff was at bedside when the patient fell. Patient normally ambulates with a walker however she declined utilizing her walker or cold from alf staff. She fell forward after being tripped by her robe causing her to hit her head against her tub. She did not have loss of consciousness. She has been complaining of facial pain and neck pain since that time. She was immobilized in a cervical collar by EMS. Patient denies any chest pain, shortness of breath, abdominal pain, nausea, vomiting, or pain in the extremities. Occurred: just prior to arrival Pain Location: head, neck Method of Injury: fall Improving Factors: nothing Worsening Factors: nothing Loss of Consciousness: no loss of consciousness Associated Symptoms (Fall): denies symptoms Allergies/Adverse Reactions: Allergies Sulfonylureas Allergy (Verified 06/18/19 23:53) CI Pigment Blue 63 [From Cymbalta] Adverse Reaction (Severe, Verified 10/31/18 12:09) Other increased depression Duloxetine [From Cymbalta] Adverse Reaction (Severe, Verified 10/31/18 12:09) Other increased depression Home Medications: Ambulatory Orders Atorvastatin Calcium [Lipitor] 20 mg PO DAILY 11/12/14 Sitagliptin-Metformin HCl [Janumet 50-1000 mg] 1 tab PO 1700 11/12/14 Calcium 600 mg PO DAILY 07/19/18 Letrozole 2.5 mg PO DAILY 07/19/18 Losartan Potassium [Cozaar] 50 mg PO DAILY tab 07/21/18 Sertraline HCl [Zoloft] 100 mg PO DAILY 07/26/18 Acetamin W/Cod #3 Tab [Tylenol w/CODEINE #3] 1 ea PO Q6HR PRN #40 tab 10/31/18 Aspirin [Aspirin Low Strength] 162 mg PO 06/18/19 Cholecalciferol [Vitamin D] 1,000 unit PO DAILY@0800 06/18/19 Cholecalciferol [Vitamin D] 1,000 unit PO DAILY@79906/18/19 Fexofenadine HCl 180 mg PO 06/18/19 Fluticasone Prop 0.05% Nasal [Flonase Nasal [place]] 50 mcg BNAS DAILY PRN 06/18/19 Letrozole [Femara] 2.5 mg PO DAILY 06/18/19 Magnesium Oxide (mg Supplement [Mag-Oxide] 400 mg PO DAILY 06/18/19 Meloxicam 7.5 mg PO DAILY PRN 06/18/19 Meloxicam 15 mg PO DAILY@79906/18/19 Ondansetron Tab [Zofran Tab] 4 mg PO Q6HR PRN 06/18/19 Ondansetron Tab [Zofran Tab] 4 mg PO Q6HR PRN 06/18/19 Pantoprazole Tablet [Protonix] 40 mg PO ACBK 06/18/19 Tramadol HCl 50 mg PO 06/18/19 Donepezil HCl [Aricept] 23 mg PO BEDTIME 06/19/19 Review of Systems - Review of Systems Constitutional: States: no symptoms reported EENTM: States: eye pain. Denies: blurred vision, double vision Respiratory: States: no symptoms reported Cardiology: States: no symptoms reported Gastrointestinal/Abdominal: States: no symptoms reported Genitourinary: States: no symptoms reported Musculoskeletal: States: neck pain Neurological: States: headache. Denies: numbness, weakness Past Medical History (General) - Patient Medical History Hx Seizures: No Hx Stroke: No Hx Dementia: Yes Hx Asthma: No Hx of COPD: No Hx Cardiac Disorders: No Hx Congestive Heart Failure: No Hx Pacemaker: No Hx Hypertension: No Hx Thyroid Disease: No Hx Diabetes: Yes Hx Gastroesophageal Reflux: Yes Hx Renal Disease: No Hx Cancer: Yes - breast Hx of HIV: No Hx Hepatitis C: No Hx MRSA: No Surgical History: tonsillectomy, Hysterectomy - Vaccination History Hx Tetanus, Diphtheria Vaccination: No Hx Influenza Vaccination: No Hx Pneumococcal Vaccination: Yes Immunizations Up to Date: Yes - Social History Hx Tobacco Use: No Hx Chewing Tobacco Use: No Hx Alcohol Use: No Hx Substance Use: No Hx Substance Use Treatment: No Hx Depression: No Hx Physical Abuse: No Hx Emotional Abuse: No Hx Suspected Abuse: No - Activities of Daily Living [facility]isted Living (if applicable):: [facility] Family Medical History - Family History Mother Family History: No Known Living Status: Hx Family Asthma: No Hx Family Congestive Heart Failure: No Hx Family Hypertension: No Hx Family Stroke: No Hx Cardiac Disease: No Hx Family Diabetes: No Hx Family Cancer: Yes - liver and colon Father Family History: No Known Living Status: Hx Family Asthma: No Hx Family Congestive Heart Failure: No Hx Family Hypertension: No Hx Family Stroke: Yes Hx Cardiac Disease: No Hx Family Diabetes: No Hx Family Cancer: No Physical Exam - Physical Exam General Appearance: Alert, No apparent distress Head Injury: lacerations - 1.5cm laceration to right forehead above eyebrow Eye Exam: bilateral normal ENT Exam: hearing grossly normal, no evidence of ENT injury, no dental injury Neck Exam: tenderness, tender midline Cardiovascular/Respiratory: regular rate, rhythm, normal peripheral pulses, normal breath sounds, no respiratory distress, murmur - Systolic 4/6 Gastrointestinal/Abdominal: normal bowel sounds, non tender, soft Extremity Exam: no evidence of injury, normal range of motion, non-tender, no pedal edema, pelvis stable 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 Plan will be for obtaining imaging. Fall seems to be mechanical in nature.CT head, CT cervical spine, CT facial bone, chest x-ray and pelvic x-ray ordered. Boostrix ordered as well given her laceration. 06/19/19 01:51 Laceration repaired. Patient discussed with team for Dr. Razia Salazar at [facility] for fx of C1 and Type 2 dens fx. Plan for transferred. Patient updated on plan for transfer and results of CT scan. She was given 75mcg of Fentanyl for neck pain. 06/19/19 01:56 Patient presented for mechanical ground level fall. She was overall neuro intact and had no pain in the extremities. Lab work was not obtained on arrival as this was a mechanical fall without a prodrome. CT head was not significant for acute intracranial hemorrhage. CT facial bone study was obtained due to right sided kelsie-orbital ecchymosis. This was not significant for orbital floor fx. CT cervical spine was obtained and significant for type 2 dens fx and C1 fx. Lab work was ordered after findings on CT and [facility] was contacted. Labs were pending and CTA was unable to be obtained by the time transport arrived. Given distance and C1 fx, plan was made for transport via helicopter as this fracture could worsen and dislocate with uneven surface and [address] Laceration was repaired with 5-0 Prolene and patient was updated on tetanus vaccine status. Patient was given 75mcg of Fentanyl for pain. She will be transferred to [facility] with Dr. Razia Salazar accepting the patient. - Results/Orders Results/Orders: CXR: No acute cardiopulmonary disease XR Pelvis: No acute fracture or dislocation CT Cervical Spine W/O Contrast: Cervical collar in place. There is an acute type II dens fracture with approximately 2 mm of left lateral displacement of the tip of the dens relative to the body. There is an acute, nondisplaced fracture of the anterior arch of C1. Best seen on series 3 image 35 and series 602 images 76, is a suspected nondisplaced, possibly incomplete fracture through the left posterior arch of C1. There is also an acute fracture of the right lateral mass of C1 seen best on series 602 images 57-61. This fracture extends into the canal for the right vertebral artery. No visualized surrounding hemorrhage. No other visualized acute cervical spine fracture. There is mild to moderate chronic multilevel degenerative disc disease, uncovertebral arthrosis, and facet arthrosis with mild reversal of the normal cervical lordosis. There is mild anterolisthesis of C4 on C5. No visualized aggressive osseous lesion. No visualized paraspinal hemorrhage. Scattered atherosclerotic calcifications. Atelectasis in the lung apices. At the level of C1, there is likely trace anterior epidural blood without visualized central canal stenosis. At C2-C3, chronic degenerative changes result in severe right and moderate left neural foraminal stenosis. At C3-C4, there is moderate right and severe left neural foraminal stenosis. At C4-C5, there is flattening of the ventral aspect of the thecal sac with severe bilateral neural foraminal stenosis. At C5-C6, there is mild central canal stenosis with severe right and moderate left neural foraminal stenosis. At C6-C7, there is mild central canal stenosis with severe right and mild to moderate left neural foraminal stenosis. At C7-T1, there is mild right neural foraminal stenosis. IMPRESSION: Acute C1 and C2 fractures as described. Probable trace anterior epidural blood at the level of C1 without central canal stenosis. There is a right C1 fracture entering the canal for the right vertebral artery. Although there is no adjacent soft tissue hemorrhage, consider follow-up CT angiogram for full evaluation. Chronic degenerative changes at C2-T1 results in severe multilevel neural foraminal stenosis. There is mild central canal stenosis at C5-C6 and C6-C7. Electronically signed by: Lily Butcher MD 06/19/2019 1:[address] Head: Acute C1 and C2 cervical spine fractures are discussed separately. There is a large right frontal scalp hematoma and laceration with subcutaneous gas. No radiodense foreign body. Smaller right infraorbital soft tissue hematoma. No visualized acute in traorbital hemorrhage. No acute skull fracture, parenchymal hemorrhage, extraaxial collection, or acute transcortical infarction. Patchy areas of low attenuation within the periventricular white matter are most compatible with chronic microvascular disease. Chronic right basal ganglia lacune. Moderate diffuse volume loss without mass effect or midline shift. Vascular calcifications are noted. The paranasal sinuses and mastoid air cells are clear. IMPRESSION: Acute C1 and C2 cervical spine fractures are discussed separately. Large right frontal scalp hematoma and laceration without acute skull fracture or acute intraorbital hemorrhage. No acute intracranial abnormality. Patchy chronic microvascular changes and volume loss Electronically signed by: Lily Butcher MD 06/19/2019 1:[address] Maxillofacial: There is a large right frontal scalp hematoma and laceration with soft tissue gas. No radiodense foreign body. Smaller right infraorbital subcutaneous hematoma. There is no acute facial fracture or mandibular fracture. No temporomandibular joint dislocation. Acute C1 and C2 cervical spine fractures are discussed separately. Prior bilateral cataract surgery. No acute orbital hemorrhage. No evidence of globe rupture. The optic nerves and extraocular muscles appear intact bilaterally. The paranasal sinuses and mastoid air cells are clear. IMPRESSION: Large right frontal scalp hematoma and laceration with soft tissue gas. No radiodense foreign body. Smaller right infraorbital subcutaneous hematoma. No acute facial fracture or acute intraorbital injury. Acute C1 and C2 cervical spine fractures are discussed separately. Electronically signed by: Lily Butcher MD 06/19/2019 1:12 AM CDT - EKG/XRAY/CT CT Ordered: Yes Procedures - Laceration/Wound Repair Right Head Wound Length (cm): 1.5 Wound's Depth, Shape: superficial Wound Explored: no foreign body removed Irrigated w/ Saline (cc's): 300 Betadine Prep?: No Anesthesia: 1% Lidocaine Volume Anesthetic (cc's): 1.5 Wound Debrided: minimal Wound Repaired With: sutures Suture Size/Type: 5:0, prolene Number of Sutures: 3 Layer Closure?: No Departure - Departure Clinical Impression: Type II dens fracture of second cervical vertebra, Fx C1 vertebra-closed, Fall from ground level, Laceration of forehead Disposition: Transfer to Hospital Departure Forms: ED Discharge - Pt. Copy, Patient Portal Self Enrollment Instructions: DI for Trauma Referrals: RUTHIE MENJIVAR MD [Primary Care Provider] - 1-2 Weeks Home Medications: Ambulatory Orders Atorvastatin Calcium [Lipitor] 20 mg PO DAILY 11/12/14 Sitagliptin-Metformin HCl [Janumet 50-1000 mg] 1 tab PO 1700 11/12/14 Calcium 600 mg PO DAILY 07/19/18 Letrozole 2.5 mg PO DAILY 07/19/18 Losartan Potassium [Cozaar] 50 mg PO DAILY tab 07/21/18 Sertraline HCl [Zoloft] 100 mg PO DAILY 07/26/18 Acetamin W/Cod #3 Tab [Tylenol w/CODEINE #3] 1 ea PO Q6HR PRN #40 tab 10/31/18 Aspirin [Aspirin Low Strength] 162 mg PO 06/18/19 Cholecalciferol [Vitamin D] 1,000 unit PO DAILY@0800 06/18/19 Cholecalciferol [Vitamin D] 1,000 unit PO DAILY@0800 06/18/19 Fexofenadine HCl 180 mg PO 06/18/19 Fluticasone Prop 0.05% Nasal [Flonase Nasal [place]] 50 mcg BNAS DAILY PRN 06/18/19 Letrozole [Femara] 2.5 mg PO DAILY 06/18/19 Magnesium Oxide (mg Supplement [Mag-Oxide] 400 mg PO DAILY 06/18/19 Meloxicam 7.5 mg PO DAILY PRN 06/18/19 Meloxicam 15 mg PO DAILY@0800 06/18/19 Ondansetron Tab [Zofran Tab] 4 mg PO Q6HR PRN 06/18/19 Ondansetron Tab [Zofran Tab] 4 mg PO Q6HR PRN 06/18/19 Pantoprazole Tablet [Protonix] 40 mg PO ACBK 06/18/19 Tramadol HCl 50 mg PO 06/18/19 Donepezil HCl [Aricept] 23 mg PO BEDTIME 06/19/19 Comments: Timoteo Cruz D.O. [facility] Number [id number]
--- NOTE | 2019-06-19 00:59 | RAD ---
CLINICAL HISTORY: GLF. Assess for pneumothorax COMPARISON: May 10, 2019. TECHNIQUE: XR CHEST 1 VIEW 06/18/2019 11:48 PM CDT FINDINGS: The heart is enlarged. There is mild pulmonary vascular congestion. There is no pleural effusion. There is no pneumothorax. There are no acute osseous findings. IMPRESSION: Mild pulmonary vascular congestion. Electronically signed by: Zachery Sky MD 06/19/2019 12:57 AM CDT
--- NOTE | 2019-06-19 01:01 | CT ---
PROCEDURE: CT Cervical Spine CLINICAL HISTORY: 73 years Female GLF. Assess for fx TECHNIQUE: Contiguous axial CT images obtained through the cervical spine without IV contrast. Coronal and sagittal reformatted images also provided. This CT exam was performed according to our departmental dose-optimization program, which includes one or more of the following dose reduction techniques: automated exposure control, adjustment of the mA and/or kV according to patient size, and/or use of iterative reconstruction technique. COMPARISON: No prior exams provided for comparison. FINDINGS: Cervical collar in place. There is an acute type II dens fracture with approximately 2 mm of left lateral displacement of the tip of the dens relative to the body. There is an acute, nondisplaced fracture of the anterior arch of C1. Best seen on series 3 image 35 and series 602 images 76, is a suspected nondisplaced, possibly incomplete fracture through the left posterior arch of C1. There is also an acute fracture of the right lateral mass of C1 seen best on series 602 images 57-61. This fracture extends into the canal for the right vertebral artery. No visualized surrounding hemorrhage. No other visualized acute cervical spine fracture. There is mild to moderate chronic multilevel degenerative disc disease, uncovertebral arthrosis, and facet arthrosis with mild reversal of the normal cervical lordosis. There is mild anterolisthesis of C4 on C5. No visualized aggressive osseous lesion. No visualized paraspinal hemorrhage. Scattered atherosclerotic calcifications. Atelectasis in the lung apices. At the level of C1, there is likely trace anterior epidural blood without visualized central canal stenosis. At C2-C3, chronic degenerative changes result in severe right and moderate left neural foraminal stenosis. At C3-C4, there is moderate right and severe left neural foraminal stenosis. At C4-C5, there is flattening of the ventral aspect of the thecal sac with severe bilateral neural foraminal stenosis. At C5-C6, there is mild central canal stenosis with severe right and moderate left neural foraminal stenosis. At C6-C7, there is mild central canal stenosis with severe right and mild to moderate left neural foraminal stenosis. At C7-T1, there is mild right neural foraminal stenosis. IMPRESSION: Acute C1 and C2 fractures as described. Probable trace anterior epidural blood at the level of C1 without central canal stenosis. There is a right C1 fracture entering the canal for the right vertebral artery. Although there is no adjacent soft tissue hemorrhage, consider follow-up CT angiogram for full evaluation. Chronic degenerative changes at C2-T1 results in severe multilevel neural foraminal stenosis. There is mild central canal stenosis at C5-C6 and C6-C7. Electronically signed by: Lily Butcher MD 06/19/2019 12:59 AM CDT
--- NOTE | 2019-06-19 01:03 | RAD ---
Pelvis and hips two view on 06/19/2019 CLINICAL INDICATION: Pain after fall COMPARISON: 04/25/2019 FINDINGS: Degenerative and postsurgical changes are partially imaged in the lower lumbar spine. The hips are well located. The SI joints are well aligned. There are no fractures. IMPRESSION: No acute abnormality. Electronically signed by: Ihsan Jones 06/19/2019 1:02 AM CDT
--- NOTE | 2019-06-19 01:13 | CT ---
PROCEDURE: CT Head CLINICAL HISTORY: 73 years Female GLF. Assess for intracranial bleed TECHNIQUE: Contiguous axial CT images obtained through the brain without IV contrast. Coronal and sagittal reformatted images also provided. This CT exam was performed according to our departmental dose-optimization program, which includes one or more of the following dose reduction techniques: automated exposure control, adjustment of the mA and/or kV according to patient size, and/or use of iterative reconstruction technique. COMPARISON: No prior exams provided for comparison. FINDINGS: Acute C1 and C2 cervical spine fractures are discussed separately. There is a large right frontal scalp hematoma and laceration with subcutaneous gas. No radiodense foreign body. Smaller right infraorbital soft tissue hematoma. No visualized acute intraorbital hemorrhage. No acute skull fracture, parenchymal hemorrhage, extraaxial collection, or acute transcortical infarction. Patchy areas of low attenuation within the periventricular white matter are most compatible with chronic microvascular disease. Chronic right basal ganglia lacune. Moderate diffuse volume loss without mass effect or midline shift. Vascular calcifications are noted. The paranasal sinuses and mastoid air cells are clear. IMPRESSION: Acute C1 and C2 cervical spine fractures are discussed separately. Large right frontal scalp hematoma and laceration without acute skull fracture or acute intraorbital hemorrhage. No acute intracranial abnormality. Patchy chronic microvascular changes and volume loss. Electronically signed by: Lily Butcher MD 06/19/2019 1:12 AM CDT
--- NOTE | 2019-06-19 01:16 | CT ---
PROCEDURE: CT Maxillofacial CLINICAL HISTORY: 73 years Female GLF. Assess for fx. R Brina-orbital edema and ecchymosis TECHNIQUE: Contiguous axial images obtained through the face and paranasal sinuses without IV contrast. Coronal and sagittal reformatted images provided. This CT exam was performed according to our departmental dose-optimization program, which includes one or more of the following dose reduction techniques: automated exposure control, adjustment of the mA and/or kV according to patient size, and/or use of iterative reconstruction technique. COMPARISON: No prior exams provided for comparison. FINDINGS: There is a large right frontal scalp hematoma and laceration with soft tissue gas. No radiodense foreign body. Smaller right infraorbital subcutaneous hematoma. There is no acute facial fracture or mandibular fracture. No temporomandibular joint dislocation. Acute C1 and C2 cervical spine fractures are discussed separately. Prior bilateral cataract surgery. No acute orbital hemorrhage. No evidence of globe rupture. The optic nerves and extraocular muscles appear intact bilaterally. The paranasal sinuses and mastoid air cells are clear. IMPRESSION: Large right frontal scalp hematoma and laceration with soft tissue gas. No radiodense foreign body. Smaller right infraorbital subcutaneous hematoma. No acute facial fracture or acute intraorbital injury. Acute C1 and C2 cervical spine fractures are discussed separately. Electronically signed by: Lily Butcher MD 06/19/2019 1:15 AM CDT
[2019-06-19] MEDS ORDERED: fentaNYL CITRATE INJ 50 MCG/ML AMP ONE (01:38)
[2019-06-19 02:29] VITALS: TEMP 99.2
[2019-06-19 02:35] VITALS: BP 148/73; O2SAT 100
== END 2019-06-19 02:15 | disposition short-term general hospital (02) ==
LOC: ER 23:35
DX: S12.120A Other displaced dens fracture, initial encounter for closed fracture (principal); S12.091A Other nondisplaced fracture of first cervical vertebra, initial encounter for closed fracture; S01.81XA Laceration without foreign body of other part of head, initial encounter; K21.9 Gastro-esophageal reflux disease without esophagitis; E11.9 Type 2 diabetes mellitus without complications; F03.90 Unspecified dementia, unspecified severity, without behavioral disturbance, psychotic disturbance, mood disturbance, and anxiety; W01.0XXA Fall on same level from slipping, tripping and stumbling without subsequent striking against object, initial encounter; Y93.01 Activity, walking, marching and hiking; Y92.129 Unspecified place in nursing home as the place of occurrence of the external cause; Z85.3 Personal history of malignant neoplasm of breast; Z88.8 Allergy status to other drugs, medicaments and biological substances; Z79.899 Other long term (current) drug therapy; Z79.82 Long term (current) use of aspirin
CPT/HCPCS: 36415; 70450; 70486; 71045; 72125; 72190; 80053; 85025; 85610; 85730; 90471; 90715; J3010

== ENCOUNTER → 2019-08-06 | Outpatient (CLI) | payer MEDICARE, BC | LOC: LAB.O 13:08 | DX: K52.89 Other specified noninfective gastroenteritis and colitis (principal); R19.4 Change in bowel habit ==

== ENCOUNTER 2019-10-21 09:56 | Emergency (ER) | payer MEDICARE, BC ==
[2019-10-21] MEDS ORDERED: SODIUM CHLORIDE 0.9% (FLUSH) 10 ML SYG IV PRN (10:09)
[2019-10-21] MEDS ORDERED: ACETAMINOPHEN 500 MG TAB PO ONE (10:10)
--- NOTE | 2019-10-21 10:15 | ED.PDOC ---
History of Present Illness - General Time Seen by Provider: 10/21/19 10:08 Source: patient - History of Present Illness Initial Comments: 73 yo female with PMH of DM2, dementia, chronic back pain, hx of breast cancer s/p left radical mastectomy (2018) who is bib EMS from [place] for cc of fall and facial injuries. Fall was not witnessed, pt was found on the ground at [place] just [facility] [employer], unknown time of fall. Pt does not remember falling, just remembers waking up on the ground. Red silverman were noted to her left face and periorbital region. Pt complains only of minimal generalized headache, denies any other acute complaints. States she was given a pain pill last night. Vitals noted to be stable en route, d-stick 150s. C-collar placed on arrival. Pt denies any neck pain, weakness, numbness, facial pain, hip pain, other extremity pain, chest pain, dyspnea, abd pain, n/v/d. Takes aspirin daily but no other blood thinners. Sulfa drugs listed as only allergy. Allergies/Adverse Reactions: Allergies Sulfonylureas Allergy (Verified 06/18/19 23:53) CI Pigment Blue 63 [From Cymbalta] Adverse Reaction (Severe, Verified 10/31/18 12:09) Other increased depression Duloxetine [From Cymbalta] Adverse Reaction (Severe, Verified 10/31/18 12:09) Other increased depression Home Medications: Ambulatory Orders RX: Atorvastatin Calcium [Lipitor] 10 mg PO BEDTIME 11/12/14 RX: Sitagliptin-Metformin HCl [Janumet 50-1000 mg] 1 tab PO BID 11/12/14 RX: Letrozole 2.5 mg PO DAILY 07/19/18 RX: Losartan Potassium [Cozaar] 50 mg PO DAILY tab 07/21/18 RX: Sertraline HCl [Zoloft] 100 mg PO DAILY 07/26/18 Aspirin [Aspirin Low Strength] 162 mg PO DAILY 06/18/19 Cholecalciferol [Vitamin D] 1,000 unit PO DAILY@0800 06/18/19 Magnesium Oxide (mg Supplement [Mag-Oxide] 400 mg PO DAILY 06/18/19 Pantoprazole Tablet [Protonix] 40 mg PO ACBK 06/18/19 RX: Fexofenadine HCl [Fexofenadine Hydrochlorid] 180 mg PO DAILY 06/18/19 RX: Fluticasone Prop 0.05% Nasal [Flonase Nasal [place]] 50 mcg BNAS DAILY PRN 06/18/19 RX: Meloxicam 15 mg PO DAILY@0800 06/18/19 RX: Ondansetron Tab [Zofran Tab] 4 mg PO Q6HR PRN 06/18/19 RX: Tramadol HCl 50 mg PO BEDTIME PRN 06/18/19 RX: Donepezil HCl [Aricept] 23 mg PO BEDTIME 06/19/19 Acetamin W/Cod #3 Tab [Tylenol w/CODEINE #3] 1 ea PO Q4HR PRN 10/21/19 Acetaminophen [Acetaminophen Extra Stren] 500 mg PO PRN 10/21/19 Alum & Mag Hydrox-Simethicone [Almacone-II Double Streng] 30 ml PO BEDTIME 10/21/19 Bisacodyl Suppository 10Mg [Dulcolax Suppository 10mg] 10 mg PA DAILY PRN 10/21/19 Calcium Carbonate (Antacid) [Calcium Antacid Extra Str] 2 tablet PO PRN 10/21/19 Calcium Citrate-Vitamin D [Calcium Citrate + D3 200-250 mg-Unit] 1 tab PO DAILY 10/21/19 Cyclobenzaprine HCl [Flexeril] 10 mg PO TID PRN 10/21/19 Metoprolol Succinate [Metoprolol Succinate ER] 25 mg PO BID 10/21/19 RX: Loperamide HCl 2 mg PO PRN 10/21/19 Review of Systems - Review of Systems Review of Systems: 10/21/19 10:14 as per HPI All other Systems: Reviewed and Negative Past Medical History (General) - Patient Medical History Hx Seizures: No Hx Stroke: No Hx Dementia: Yes Hx Asthma: No Hx of COPD: No Hx Cardiac Disorders: No Hx Congestive Heart Failure: No Hx Pacemaker: No Hx Hypertension: No Hx Thyroid Disease: No Hx Diabetes: Yes Hx Gastroesophageal Reflux: Yes Hx Renal Disease: No Hx Cancer: Yes - breast Hx of HIV: No Hx Hepatitis C: No Hx MRSA: No - Vaccination History Hx Tetanus, Diphtheria Vaccination: No Hx Influenza Vaccination: No Hx Pneumococcal Vaccination: Yes - Social History Hx Tobacco Use: No Hx Chewing Tobacco Use: No Hx Alcohol Use: No Hx Substance Use: No Hx Substance Use Treatment: No Hx Depression: No Hx Physical Abuse: No Hx Emotional Abuse: No Hx Suspected Abuse: No Family Medical History - Family History Father Family History: No Known Living Status: Hx Family Asthma: No Hx Family Congestive Heart Failure: No Hx Family Hypertension: No Hx Family Stroke: Yes Hx Cardiac Disease: No Hx Family Diabetes: No Hx Family Cancer: No Mother Family History: No Known Living Status: Hx Family Asthma: No Hx Family Congestive Heart Failure: No Hx Family Hypertension: No Hx Family Stroke: No Hx Cardiac Disease: No Hx Family Diabetes: No Hx Family Cancer: Yes - liver and colon Physical Exam - Physical Exam General Appearance: Alert, No apparent distress Eye Exam: bilateral abnormal pupil - Pinpoint pupils BL, equally round and reactive to light Ears, Nose, Throat: hearing grossly normal, normal ENT inspection, normal pharynx Neck: non-tender, full range of motion, supple, normal inspection Respiratory: chest non-tender, lungs clear, normal breath sounds, no respiratory distress Cardiovascular/Chest: normal peripheral pulses, regular rate, rhythm, no edema, no JVD, systolic murmur - 4/6 systolic murmur best appreciated at [facility]LSB - pt states chronic Peripheral Pulses: radial,right: 2+, radial,left: 2+ Gastrointestinal/Abdominal: non tender, soft, no organomegaly Back Exam: normal inspection, no CVA tenderness, no vertebral tenderness Extremity: normal range of motion, non-tender, normal inspection, no pedal edema, no calf tenderness 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 States date is 10/18/19 Skin Exam: warm/dry, other - faint red ecchymosis noted to left face and periorbital regions, mildly ttp, no bony abnormalities Progress - Progress Progress: 10/21/19 10:17 Ground level fall -unknown mechanism - question iatrogenic vs mechanical vs medical (ACS vs CVA/TIA vs arrhythmia vs electrolyte derangement vs infectious vs other) -injuries to: left face, head, ?other -vitals stable, pt in NAD, GCS 15 -consider: ICH vs CVA vs skull frx vs c-spine frx vs hip frx vs other injuries -obtain CT head, maxillofacial, c-spine, CXR, Pelvis XR, UA, labs -Tylenol 500 mg PO for pain 10/21/19 12:59 -Pt has remained stable, still no major complaints. She is able to ambulate around ED with use of 4-point walker (at baseline). CT head, maxillofacial, c- spine all without acute fractures/processes. CXR & Pelvis XR without acute processes. Labs pretty unremarkable. -Will plan to dc back to [place] in stable condition. Continue trx of acute facial contusion, closed head injury at [place]. Return warnings discussed. Romulo Shearer MD Billing #[id number] - Results/Orders Results/Orders: 10/21/19 10:09 IV Care:Saline Lock per Protoc QSHIFT 10/21/19 10:15 EKG STAT Laboratory Results - last 24 hr 10/21/19 10/21/19 10/21/19 10:14 10:14 10:14 WBC 8.7 RBC 5.10 Hgb 14.0 Hct 43.2 MCV 84.7 MCH 27.4 MCHC 32.3 L RDW 14.2 Plt Count 202 MPV 7.7 Absolute Neuts (auto) 7.90 H Absolute Lymphs (auto) 0.40 L Absolute Monos (auto) 0.40 Absolute Eos (auto) 0.00 Absolute Basos (auto) 0.00 Neutrophils % 90.6 H Lymphocytes % 4.7 L Monocytes % 4.4 Eosinophils % 0.0 L Basophils % 0.3 PT 11.9 H INR 1.20 H PTT (SP) 25.7 Sodium 139 Potassium 3.9 Chloride 100 L Carbon Dioxide 24 Anion Gap 18.9 H BUN 12 Creatinine 0.52 L BUN/Creatinine Ratio 23.1 H Random Glucose 152 H Serum Osmolality 280.3 Calcium 9.5 Total Bilirubin 0.8 Direct Bilirubin 0.2 Indirect Bilirubin 0.6 AST 34 ALT 14 Alkaline Phosphatase 34 L Troponin I Serum Total Protein 7.0 Albumin 4.0 Urine Color Urine Appearance Urine pH Ur Specific [place] Urine Protein Urine Glucose (UA) Urine Ketones Urine Blood Urine Nitrite Urine Bilirubin Urine Urobilinogen Ur Leukocyte Esterase Urine RBC Urine WBC Ur Epithelial Cells Amorphous Sediment Urine Bacteria Urine Mucus 10/21/19 10/21/19 10:14 11:35 WBC RBC Hgb Hct MCV MCH MCHC RDW Plt Count MPV Absolute Neuts (auto) Absolute Lymphs (auto) Absolute Monos (auto) Absolute Eos (auto) Absolute Basos (auto) Neutrophils % Lymphocytes % Monocytes % Eosinophils % Basophils % PT INR PTT (SP) Sodium Potassium Chloride Carbon Dioxide Anion Gap BUN Creatinine BUN/Creatinine Ratio Random Glucose Serum Osmolality Calcium Total Bilirubin Direct Bilirubin Indirect Bilirubin AST ALT Alkaline Phosphatase Troponin I 0.04 Serum Total Protein Albumin Urine Color Yellow Urine Appearance Sl cloudy Urine pH 5.5 Ur Specific [place] >= 1.030 Urine Protein 30 Urine Glucose (UA) Negative Urine Ketones 40 H Urine Blood Small H Urine Nitrite Negative Urine Bilirubin Small H Urine Urobilinogen 0.2 Ur Leukocyte Esterase Negative Urine RBC 0-1 Urine WBC 0-1 Ur Epithelial Cells 1-3 Amorphous Sediment Trace Urine Bacteria 0 Urine Mucus Trace - EKG/XRAY/CT EKG: Sinus - normal sinus rhythm, HR 70, no ST elevations, q waves noted in V2 likely indicative of old [place], LVH with left axis deviation noted, QTc prolonged 529 msecs, intervals otherwise wnl, nonspecific T wave inversions in inferior and lateral leads, compared to 05/10/[address] elevation no longer seen Departure - Departure Clinical Impression: Fall from ground level, Contusion of face Time of Disposition: 13:01 Disposition: Discharge to SNF Condition: Fair Instructions: Closed Head Injury (DC) Diet: resume usual diet Referrals: RUTHIE MENJIVAR MD [Primary Care Provider] - 1-2 Weeks Home Medications: Ambulatory Orders RX: Atorvastatin Calcium [Lipitor] 10 mg PO BEDTIME 11/12/14 RX: Sitagliptin-Metformin HCl [Janumet 50-1000 mg] 1 tab PO BID 11/12/14 RX: Letrozole 2.5 mg PO DAILY 07/19/18 RX: Losartan Potassium [Cozaar] 50 mg PO DAILY tab 07/21/18 RX: Sertraline HCl [Zoloft] 100 mg PO DAILY 07/26/18 Aspirin [Aspirin Low Strength] 162 mg PO DAILY 06/18/19 Cholecalciferol [Vitamin D] 1,000 unit PO DAILY@0800 06/18/19 Magnesium Oxide (mg Supplement [Mag-Oxide] 400 mg PO DAILY 06/18/19 Pantoprazole Tablet [Protonix] 40 mg PO ACBK 06/18/19 RX: Fexofenadine HCl [Fexofenadine Hydrochlorid] 180 mg PO DAILY 06/18/19 RX: Fluticasone Prop 0.05% Nasal [Flonase Nasal [place]] 50 mcg BNAS DAILY PRN 06/18/19 RX: Meloxicam 15 mg PO DAILY@0800 06/18/19 RX: Ondansetron Tab [Zofran Tab] 4 mg PO Q6HR PRN 06/18/19 RX: Tramadol HCl 50 mg PO BEDTIME PRN 06/18/19 RX: Donepezil HCl [Aricept] 23 mg PO BEDTIME 06/19/19 Acetamin W/Cod #3 Tab [Tylenol w/CODEINE #3] 1 ea PO Q4HR PRN 10/21/19 Acetaminophen [Acetaminophen Extra Stren] 500 mg PO PRN 10/21/19 Alum & Mag Hydrox-Simethicone [Almacone-II Double Streng] 30 ml PO BEDTIME 10/21/19 Bisacodyl Suppository 10Mg [Dulcolax Suppository 10mg] 10 mg PA DAILY PRN 10/21/19 Calcium Carbonate (Antacid) [Calcium Antacid Extra Str] 2 tablet PO PRN 10/21/19 Calcium Citrate-Vitamin D [Calcium Citrate + D3 200-250 mg-Unit] 1 tab PO DAILY 10/21/19 Cyclobenzaprine HCl [Flexeril] 10 mg PO TID PRN 10/21/19 Metoprolol Succinate [Metoprolol Succinate ER] 25 mg PO BID 10/21/19 RX: Loperamide HCl 2 mg PO PRN 10/21/19 Additional Instructions: Return to the ED if patient develops severe or rapidly worsening headache, confusion, trouble walking, shortness of breath, chest pain, abdominal pain, or other concerning symptoms. Recommend fall precautions at longterm. Follow up in next 5-7 days with PCP recommended.
--- NOTE | 2019-10-21 11:01 | CT ---
EXAM DESCRIPTION: CT Cervical Spine CLINICAL HISTORY: fall with closed head injury COMPARISON: June 19, 2019 TECHNIQUE: Axial noncontast CT of the cervical spine with coronal and sagittal reformats. This exam was performed according to our departmental dose-optimization program, which includes automated exposure control, adjustment of the mA and/or kV according to patient size and/or use of iterative reconstruction technique. FINDINGS: Transversely oriented fracture through the base of the odontoid is again seen with less than 2 mm leftward displacement of the odontoid on C2. Indistinctness of the fracture margins is seen without significant bridging bony union. Interval postsurgical changes from bilateral pedicle screw and vertical fixation at C1-C2 is seen with bone graft material in the soft tissue posterior to the C1-2 level. No bony fusion is identified. Increased craniocaudal distance between posterior elements of C1 and C2 is seen now measuring 12 mm compared to 5 mm previously. Fracture involving the posterior lamina of C1 right greater than left is again seen without significant displacement and prior exam. Partial bridging interbody fusion of the inferior aspect of the fracture involving the anterior arch of C1 is seen compared to previous exam. No hardware failure or loosening. Increased attenuation posterior to the odontoid seen on previous exam possibly representing hemorrhage is no longer identified. No spinal canal stenosis seen. Moderate to severe disc space narrowing throughout the cervical spine most severe at C5-6 and C6-7 is again seen with multilevel left greater than right facet arthropathy. At least mild spinal canal stenosis with moderate bilateral foraminal encroachment asymmetric on the right is seen at C5-6. Multilevel foraminal encroachment of the cervical spine is stable from previous. No new fracture or posttraumatic positional malleolus cervical spine is seen. Moderate left and mild right calcified plaque of the carotid bulb seen. IMPRESSION: Interval posterior hardware fixation of C1 and C2 with bone graft material mainly in the soft tissue posterior to the spine at C1-2. Lack of posterior bony fusion is seen. Partial fusion of the anterior arch of C1 fracture with lack of bony fusion or healing involving the odontoid fracture and fracture of the bilateral C1 posterior elements. Interval improvement of epidural hemorrhage seen at the C1-2 level on previous exam. Moderate to severe spondylitic changes of the cervical spine are otherwise stable from previous. No new fracture or posttraumatic visceral abnormality of cervical spine is seen. Electronically signed by: Mike Snyder MD 10/21/2019 11:00 AM [facility] [[email or web address]]
--- NOTE | 2019-10-21 11:04 | CT ---
EXAM DESCRIPTION: Head CLINICAL HISTORY: fall with closed head injury COMPARISON: June 19, 2019 TECHNIQUE: Noncontrast transaxial CT images of the head are obtained from base to vertex. This exam was performed according to our departmental dose-optimization program, which includes automated exposure control, adjustment of the mA and/or kV according to patient size and/or use of iterative reconstruction technique. FINDINGS: The midline structures are not displaced. Sulci are age-appropriate. There are areas of decreased attenuation in the periventricular white matter and the white matter of the centrum semiovale. Decreased attenuation in the right caudate to periventricular white matter is stable from previous likely representing area of old lacunar infarct. There is no evidence of mass, mass-effect, hydrocephalus, or acute intracranial hemorrhage. No abnormal extra axial fluid collection is seen. Bone windows show no evidence of depressed skull fracture. Right frontal scalp soft tissue hematoma seen on previous examination is resolved. Moderate calcifications of the intracranial carotid arteries are seen. The visualized paranasal sinuses are unremarkable. IMPRESSION: 1. Age-appropriate atrophy with evidence of old small vessel ischemic type changes seen. 2. No acute abnormality is seen on noncontrast CT of the head. Electronically signed by: Mike Snyder MD 10/21/2019 11:03 AM [employer] ASSISTANT
--- NOTE | 2019-10-21 11:08 | CT ---
EXAM DESCRIPTION: CT Maxillofacial CLINICAL HISTORY: fall with closed head injury, left facial injury COMPARISON: June 19, 2019 TECHNIQUE: Noncontrast transaxial CT images of the maxillofacial region are obtained with coronal and sagittal reconstructed images. This exam was performed according to our departmental dose-optimization program, which includes automated exposure control, adjustment of the mA and/or kV according to patient size and/or use of iterative reconstruction technique . FINDINGS: Paranasal sinuses are normally aerated. Mild mucosal thickening in the ethmoid sinuses is seen. Tiny left maxillary air-fluid level is seen. 2 to 3 mm rightward deviation of the bony nasal septum is seen with right-sided bony spur. Moderate left middle turbinate michael bullosa. Ostiomeatal units are patent. The patient has no maxillary teeth. No fracture or dislocation of the mandible. The right mandible is incompletely included in [id number] with lack of visualization of the TMJ. Interval posterior hardware fixation of C1 and C2 with healing fractures at C1 and C2 described on CT of the cervical spine from today. The orbits and ocular globes are normal and symmetric. Interval resolution of the right frontal scalp soft tissue hematoma and right periorbital soft tissue edema is seen on previous exam. IMPRESSION: Tiny left maxillary sinus air-fluid level could represent minimal acute sinusitis. Mild ethmoid subacute to chronic sinusitis. No CT evidence of acute facial bone fracture. Electronically signed by: Mike Snyder MD 10/21/2019 11:06 AM [facility]
--- NOTE | 2019-10-21 11:10 | RAD ---
EXAM DESCRIPTION: Chest,1 View CLINICAL HISTORY: fall with closed head injury COMPARISON: June 19, 2019 IMPRESSION: Single AP portable upright view of the chest shows mild enlargement of the cardiac silhouette without pulmonary vascular congestion. Lungs are normally aerated and clear. No obvious pleural effusion or pneumothorax is seen. Posterior hardware fixation of the lower thoracic to lumbar spine is again seen. Electronically signed by: Mike Snyder MD 10/21/2019 11:08 AM [facility]
--- NOTE | 2019-10-21 11:14 | RAD ---
EXAM DESCRIPTION: Pelvis CLINICAL HISTORY: ground level fall COMPARISON: June 19, 2019 IMPRESSION: Single AP supine view of the pelvis shows no acute fracture, focal bone destruction, or joint dislocation. Moderate osteoarthritic changes of the hips are seen left greater than right similar to previous exam. Moderate to severe disc degenerative changes of the lower lumbar spine are seen. Electronically signed by: Mike Snyder MD 10/21/2019 11:13 AM [facility]
[2019-10-21 13:27] VITALS: BP 153/89; TEMP 98; O2SAT 98
== END 2019-10-21 13:25 ==
LOC: ER 09:56
DX: S00.83XA Contusion of other part of head, initial encounter (principal); S05.12XA Contusion of eyeball and orbital tissues, left eye, initial encounter; I45.81 Long QT syndrome; M47.812 Spondylosis without myelopathy or radiculopathy, cervical region; E11.9 Type 2 diabetes mellitus without complications; K21.9 Gastro-esophageal reflux disease without esophagitis; F03.90 Unspecified dementia, unspecified severity, without behavioral disturbance, psychotic disturbance, mood disturbance, and anxiety; Z85.3 Personal history of malignant neoplasm of breast; Z79.82 Long term (current) use of aspirin; Z79.899 Other long term (current) drug therapy; Z88.8 Allergy status to other drugs, medicaments and biological substances; Z88.2 Allergy status to sulfonamides; W18.30XA Fall on same level, unspecified, initial encounter; Y92.129 Unspecified place in nursing home as the place of occurrence of the external cause

== ENCOUNTER → 2019-10-25 | Outpatient (CLI) | payer MEDICARE, BC | LOC: BFHH 09:42 | PROVIDERS: ATTEND Family Medicine | DX: E11.9 Type 2 diabetes mellitus without complications (principal); I10 Essential (primary) hypertension; D64.9 Anemia, unspecified; I25.2 Old myocardial infarction; Z13.29 Encounter for screening for other suspected endocrine disorder ==

== ENCOUNTER → 2019-10-29 | Outpatient (CLI) | payer MEDICARE, BC ==
--- NOTE | 2019-10-30 09:10 | MRI ---
EXAM DESCRIPTION: Brain w/oContrast CLINICAL HISTORY: TIA COMPARISON: CT of the head October 23, 2019 TECHNIQUE: Non contrast MRI of the brain is performed according to our usual protocol including multiplanar multi sequence technique. FINDINGS: Sagittal T1 images show thin but intact corpus callosum. Normal pituitary gland with normal T1 appearance of the severiano and medulla and upper cervical cord. Fragmented appearance of the tip of the dens most consistent with old fracture. Patient had a CT of the C-spine October 21, 2019 which showed cervical fractures including fractured dens and orthopedic hardware in place for stabilization. Normal signal intensity within the clivus and calvarium. Axial T2 fat sat images reveal preservation of intracranial vascular flow voids. Normal cortical brock matter T2 signal intensity. Hyperintensities are seen in the basal ganglia and cerebral white matter. Asymmetric enlargement of the right lateral ventricle consistent with old central infarct involving right basal ganglia and internal capsule. This was present on the previous CT. Prominent ventricles and sulci consistent with age-related cerebral volume loss. The globes appear intact and symmetrical. No abnormal fluid signal in the paranasal sinuses, tympanic cavities or mastoid air cells. Axial flair images show multifocal and confluent areas of increased signal intensity within the cerebral white matter consistent with chronic microvascular ischemic disease. Diffusion weighted images are negative for focal intense increased signal intensity in the brain parenchyma to suggest restricted diffusion. ADC mapping is negative. Axial T1 images show normal brock-white matter differentiation. No high signal intensity hemorrhagic lesion of the brain parenchyma. No subdural hematoma. Axial susceptibility weighted images are positive for signal loss in the right periventricular and basal ganglia regions consistent with old hemorrhage with residual hemosiderin staining. Lesser basal ganglial signal loss consistent with chronic incidental microscopic calcium accumulation. No gross calcification on the recent CT. Abnormal brain parenchymal calcification or hemosiderin deposition. IMPRESSION: No acute intracranial pathologic process. Senescent brain with extensive chronic microvascular ischemic changes in the cerebral white matter. Residual changes of old right basal ganglial hemorrhage/hemorrhagic infarction. Electronically signed by: Zeke Branch MD 10/30/2019 9:09 AM [employer]
== END ==
LOC: MRI 14:00
PROVIDERS: ATTEND Family Medicine
DX: G45.8 Other transient cerebral ischemic attacks and related syndromes (principal); R90.82 White matter disease, unspecified

== ENCOUNTER → 2019-12-27 | Outpatient (CLI) | payer MEDICARE, BC | DX: I69.198 Other sequelae of nontraumatic intracerebral hemorrhage (principal); M62.81 Muscle weakness (generalized); E11.9 Type 2 diabetes mellitus without complications ==

== ENCOUNTER → 2020-02-10 | Outpatient (CLI) | payer MEDICARE, BC ==
--- NOTE | 2020-02-10 13:55 | US ---
EXAM DESCRIPTION: Venous,Lower Extremity RT: ULTRASOUND. CLINICAL HISTORY: EDEMA. Right lower extremity. COMPARISON: None Available. TECHNIQUE: Pittman-scale and doppler sonographic evaluation of the deep venous system of the right lower extremity. FINDINGS: Doppler evaluation shows normal color flow and normal phasicity and augmentation of the right common femoral vein, femoral vein, popliteal vein, greater saphenous vein, junction with the CFV. Also normal color flow and normal phasicity and augmentation of the peroneal, and posterior tibial vein. The right lower extremity deep veins were completely compressible; normal occlusion with transducer pressure. Pittman-scale survey showed no echogenic thrombus within these veins. Fluid collection in the right popliteal fossa measuring 3.6 x 2.0 x 0.6 cm. IMPRESSION: 1. Duplex ultrasound evaluation of the right lower extremity deep venous system showing no evidence of thrombosis. 2. 3.6 cm Potter's cyst in the right popliteal fossa. Electronically signed by: Fidencio Bell MD 02/10/2020 1:53 PM CDT
== END ==
LOC: US 13:03
PROVIDERS: ATTEND Family Medicine
DX: R60.0 Localized edema (principal); M71.21 Synovial cyst of popliteal space [Baker], right knee

== ENCOUNTER → 2020-03-17 | Outpatient (CLI) | payer MEDICARE, BC | LOC: GMAE 16:42 | PROVIDERS: ATTEND Family Medicine | DX: C50.412 Malignant neoplasm of upper-outer quadrant of left female breast (principal) ==

== ENCOUNTER → 2020-05-26 | Outpatient (CLI) | payer MEDICARE, BC ==
--- NOTE | 2020-05-28 19:36 | MAM ---
EXAM DESCRIPTION: 3D Screening BILATERAL : Digital Mammography. CLINICAL HISTORY: 74 years Female ANNUAL SCREENING personal history left breast cancer.. Mastectomy July 2018. Remote family history of ovarian cancer. Lifetime risk of developing breast cancer (Tyrer-Cuzick model)(%): Not Calculated due to personal history of breast cancer. COMPARISON: Right breast screening digital breast tomosynthesis May 2019. Ultrasound-guided needle core biopsy left breast May 2018.. TECHNIQUE: Right breast CC and MLO projection full-field images, digital tomosynthesis mammographic technique. Right breast digital 2-D full-field MLO images. CAD available for 2-D images. FINDINGS: Right breast parenchymal density pattern is: Scattered areas of fibroglandular density. No skin thickening or nipple retraction. "Eggshell" and solitary microcalcifications. Skin mole markers. No new focal, stellate mass or density, focal asymmetry , and no suspicious microcalcifications right breast. Stable mammograms compared to prior study. IMPRESSION: Benign exam. BIRAD CATEGORY: 2 BENIGN FINDINGS. RECOMMENDATIONS: FOLLOW UP: Routine digital right breast mammographic screening, one year interval from May 2020. Written communication explaining the IMPRESSION and follow-up, will be mailed to the patient and referring health care provider. According to the [employer], yearly mammograms are recommended starting at age 40 and continuing as long as a woman is in good health. Any breast change noted on a breast self-exam should be reported promptly to the patient's healthcare provider. Breast MRI is recommended for women with an approximately 20-25% or greater lifetime risk of breast cancer, including women with a strong family history of breast or ovarian cancer and women who have been treated for Hodgkin's disease. A negative mammographic report should not delay tissue diagnosis in patients with significant clinical history or physical findings. Extremely dense breast tissue limits the sensitivity of digital mammography. Electronically signed by: Fidencio Bell MD 05/28/2020 7:35 PM CDT
== END ==
LOC: MAMMO 14:09
PROVIDERS: ATTEND Surgery
DX: Z12.31 Encounter for screening mammogram for malignant neoplasm of breast (principal)

== ENCOUNTER → 2020-07-16 | Outpatient (CLI) | payer MEDICARE, BC | LOC: BFHH 14:29 | PROVIDERS: ATTEND Internal Medicine Hematology & Oncology | DX: I69.198 Other sequelae of nontraumatic intracerebral hemorrhage (principal); M62.81 Muscle weakness (generalized); E11.9 Type 2 diabetes mellitus without complications; I10 Essential (primary) hypertension; E78.2 Mixed hyperlipidemia; M85.89 Other specified disorders of bone density and structure, multiple sites; Z85.3 Personal history of malignant neoplasm of breast; F03.90 Unspecified dementia, unspecified severity, without behavioral disturbance, psychotic disturbance, mood disturbance, and anxiety ==

== ENCOUNTER 2020-08-14 17:19 | Inpatient (IN) | payer MEDICARE, BC ==
[2020-08-14] MEDS ORDERED: AZITHROMYCIN IV 500 MG in SODIUM CHLORIDE 0.9% 250ML 250 ML IVPB ONE (17:35)
[2020-08-14] MEDS ORDERED: cefTRIAXone SODIUM 1 GM in SODIUM CHL 0.9% 50ML MIN-BAG+ 50 ML IVPB ONE (17:35)
[2020-08-14] MEDS ORDERED: DEXAMETHASONE INJ 4 MG/ML VIAL IV ONE (17:36)
[2020-08-14] MEDS ORDERED: FUROSEMIDE INJ 40 MG/4 ML VIAL IV ONE (19:15)
[2020-08-14] MEDS ORDERED: IPRATROPIUM/ALBUTEROL 3 ML VIAL NEB ONE (20:10)
--- NOTE | 2020-08-14 20:16 | RAD ---
EXAM DESCRIPTION: Chest,1 View 08/14/2020 8:13 PM CDT CLINICAL HISTORY: 74 years, Female, hypoxia COMPARISON: 10/21/2019 FINDINGS: Single view of the chest was obtained portable. Prior films were compared. The lung volume is decreased. The heart is nonenlarged. The thoracic aorta is mildly tortuous. Lung volume is decreased with increased interstitial pulmonary markings whether this is related to overcrowding and/or early interstitial pulmonary edema/fluid overload could be of consideration. External EKG leads within the [id number] limits diagnosis. There are no significant pleural effusions and/or consolidations. Again there is posterior transpedicular hardware failure lower thoracic spine and upper lumbar spine similar to prior study. IMPRESSION: DECREASED LUNG VOLUME WITH OVER CROWDING PULMONARY MARKINGS AND/OR EARLY FLUID OVERLOAD/INTERSTITIAL PULMONARY EDEMA SHOULD BE INCLUDED IN THE DIFFERENTIAL. POSTERIOR ARTICULAR THORACOLUMBAR FUSION SIMILAR TO PRIOR STUDY. Electronically signed by: Asif Dill MD 08/14/2020 8:15 PM CDT
--- NOTE | 2020-08-14 20:44 | RAD ---
EXAM: XR Abdomen, 2 Views CLINICAL HISTORY: abd pain TECHNIQUE: Frontal view of the abdomen/pelvis with upright view of the abdomen. COMPARISON: 05/10/2019 FINDINGS: Limitations: None. Lower thorax: Mild groundglass interstitial thickening noted in the right lung. Intraperitoneal space: No free air. Gastrointestinal tract: Moderate distal colonic stool present. Small amounts of stool noted in the hepatic flexure. No distention. Organs: Visualized organ shadows appear grossly normal. Bones/joints: T11-L3 posterior spinal fusion hardware intact. L2 vertebroplasty change stable. Degenerative changes in the lumbar spine stable. Soft tissues: No abnormality noted. No concerning calcifications. No concerning radiopaque foreign body noted within the patient. IMPRESSION: 1. Mild right groundglass pulmonary infiltrate. Appearance is nonspecific and could reflect pneumonitis from asymmetric aspiration, atypical vascular congestion or pneumonia including viral etiology. 2. Nonobstructive intestinal gas pattern. Electronically signed by: Ирина Nixon MD 08/14/2020 8:42 PM CDT
--- NOTE | 2020-08-14 22:36 | CT ---
EXAM DESCRIPTION: Abdoment/Pelvis w/o Contrast CLINICAL HISTORY: 74 years Female abd pain, hypoxia, ams COMPARISON: 11/29/2017 TECHNIQUE: Multiple contiguous axial CT slices were taken from the diaphragms to the pubic symphysis without intravenous contrast. This exam was performed according to our departmental dose-optimization program, which includes automated exposure control, adjustment of the mA and/or kV according to patient size and/or use of iterative reconstruction technique. FINDINGS: Bibasilar atelectasis. No focal hepatic lesions. Cholelithiasis. The bile ducts pancreas spleen and adrenals are normal. The kidneys, ureters and bladder are normal. The uterus is absent. No adnexal masses. The small bowel is normal. There is fluid and fat stranding in the right lower quadrant, although the appendix is not definitely seen. There are scattered colonic diverticulosis. There is relatively long segment colonic wall thickening spanning from the distal descending colon to the rectosigmoid junction. No ascites, pneumatosis or pneumoperitoneum. No lymphadenopathy. The aorta and IVC are normal. There are no abdominal wall hernia defects. Spondylosis with thoracolumbar fusion hardware appearing intact. Scoliosis. No destructive osseous lesion. IMPRESSION: 1. Nonspecific colitis involving the distal descending and sigmoid colon. Colonic diverticulosis, although the long segment colonic wall thickening does not appear to be related to acute diverticular disease. 2. Nonspecific right lower quadrant fluid and fat stranding, without definitively identified appendix. Acute appendicitis is certainly possible, although this could also be related to enterocolitis. Correlate for evidence of right lower quadrant tenderness. 3. Cholelithiasis. Electronically signed by: Geoff Stevenson MD 08/14/2020 10:34 PM CDT
[2020-08-14] MEDS ORDERED: metroNIDAZOLE IV PREMIX 500MG 500 MG in PREMIX BAG 1 BAG IVPB ONE (22:42)
--- NOTE | 2020-08-14 22:51 | ED.PDOC ---
History of Present Illness - General Chief Complaint: Respiratory Problem Stated Complaint: Lethargy, SOB, cough Time Seen by Provider: 08/14/20 17:32 Source: patient Exam Limitations: no limitations - History of Present Illness Initial Comments: The patient is a 74-year-old female sent from [facility] secondary to hypoxia and altered mental status. The patient had apparently been becoming more confused throughout the day. Oxygen saturations on room air are in the low 80s. Initially lung garcia are wet bilaterally throughout. Patient initially tachypneic as well. The patient will sometimes answer yes/no questions appropriately. It takes screaming and shaking to wake her up shortly. Patient's mental status does improve over 2 hours with improved oxygenation. And as her mental status improves it becomes more apparent that she is having some abdominal discomfort. Patient denies any diarrhea. The patient does have some urinary incontinence however when a Wilkinson catheter was placed after the incontinence she still had a residual 300 cc. That she may have been retaining some urine. Timing/Duration: unsure Severity: severe Improving Factors: other - Oxygen Worsening Factors: nothing Allergies/Adverse Reactions: Allergies Sulfonylureas Allergy (Verified 08/14/20 18:21) CI Pigment Blue 63 [From Cymbalta] Adverse Reaction (Severe, Verified 08/14/20 18:21) Other increased depression Duloxetine [From Cymbalta] Adverse Reaction (Severe, Verified 08/14/20 18:21) Other increased depression Home Medications: Ambulatory Orders Atorvastatin Calcium [Lipitor] 10 mg PO BEDTIME 11/12/14 Sitagliptin-Metformin HCl [Janumet 50-1000 mg] 1 tab PO BID 11/12/14 Letrozole 2.5 mg PO DAILY 07/19/18 Losartan Potassium [Cozaar] 50 mg PO DAILY tab 07/21/18 Sertraline HCl [Zoloft] 100 mg PO DAILY 07/26/18 Aspirin [Aspirin Low Strength] 162 mg PO DAILY 06/18/19 Cholecalciferol [Vitamin D] 1,000 unit PO DAILY@0806/18/19 Fexofenadine HCl [Fexofenadine Hydrochlorid] 180 mg PO PRN 06/18/19 Fluticasone Prop 0.05% Nasal [Flonase Nasal [place]] 50 mcg BNAS DAILY PRN 06/18/19 Meloxicam 15 mg PO DAILY@0806/18/19 Ondansetron Tab [Zofran Tab] 4 mg PO Q6HR PRN 06/18/19 Pantoprazole Tablet [Protonix] 40 mg PO ACBK 06/18/19 Tramadol HCl 50 mg PO BEDTIME PRN 06/18/19 Donepezil HCl [Aricept] 23 mg PO BEDTIME 06/19/19 Acetaminophen [Acetaminophen Extra Stren] 1,000 mg PO PRN 10/21/19 Alum & Mag Hydrox-Simethicone [Almacone-II Double Streng] 30 ml PO BEDTIME 10/21/19 Bisacodyl Suppository 10Mg [Dulcolax Suppository 10mg] 10 mg PA DAILY PRN 10/21/19 Calcium Carbonate (Antacid) [Calcium Antacid Extra Str] 2 tablet PO PRN 10/21/19 Calcium Citrate-Vitamin D [Calcium Citrate + D3 200-250 mg-Unit] 2 tab PO DAILY 10/21/19 Loperamide HCl 2 mg PO PRN 10/21/19 Metoprolol Succinate [Metoprolol Succinate ER] 25 mg PO BID 10/21/19 Alum & Mag Hydrox-Simethicone [Laure-Mox] 1 haylee PO PRN 08/14/20 Bismatrol Susp 262/15 Ml 30 ml PO PRN 08/14/20 DiphenhydrAMINE HCL [Benadryl] 50 mg PO PRN 08/14/20 Magnesium Hydroxide [Milk Of Magnesia] 30 ml PO PRN 08/14/20 Polyethylene Glycol 3350 [Miralax] 17 gm PO PRN 08/14/20 Review of Systems - Review of Systems Constitutional: States: malaise, weakness - Generalized EENTM: States: no symptoms reported Respiratory: States: short of breath Cardiology: States: no symptoms reported Gastrointestinal/Abdominal: States: abdominal pain Genitourinary: States: see HPI Musculoskeletal: States: no symptoms reported Skin: States: no symptoms reported Neurological: States: see HPI Endocrine: States: no symptoms reported All other Systems: No Change from Baseline Past Medical History (General) - Patient Medical History Hx Seizures: No Hx Stroke: No Hx Dementia: Yes Hx Asthma: No Hx of COPD: No Hx Cardiac Disorders: No Hx Congestive Heart Failure: No Hx Pacemaker: No Hx Hypertension: No Hx Thyroid Disease: No Hx Diabetes: Yes Hx Gastroesophageal Reflux: Yes Hx Renal Disease: No Hx Cancer: Yes - breast Hx of HIV: No Hx Hepatitis C: No Hx MRSA: No - Vaccination History Hx Tetanus, Diphtheria Vaccination: No Hx Influenza Vaccination: No Hx Pneumococcal Vaccination: Yes - Social History Hx Tobacco Use: No Hx Chewing Tobacco Use: No Hx Alcohol Use: No Hx Substance Use: No Hx Substance Use Treatment: No Hx Depression: No Hx Physical Abuse: No Hx Emotional Abuse: No Hx Suspected Abuse: No - Activities of Daily Living Senior Care/Assisted Living (if applicable):: [place] - Female History Patient is a Female of Child Bearing Age (10 -59 yrs old): No Patient : No Family Medical History - Family History Mother Family History: No Known Living Status: Hx Family Asthma: No Hx Family Congestive Heart Failure: No Hx Family Hypertension: No Hx Family Stroke: No Hx Cardiac Disease: No Hx Family Diabetes: No Hx Family Cancer: Yes - liver and colon Father Family History: No Known Living Status: Hx Family Asthma: No Hx Family Congestive Heart Failure: No Hx Family Hypertension: No Hx Family Stroke: Yes Hx Cardiac Disease: No Hx Family Diabetes: No Hx Family Cancer: No Physical Exam - Physical Exam General Appearance: Frail, Lethargic, Obvious distress Eye Exam: bilateral normal Ears, Nose, Throat: hearing grossly normal, normal pharynx Neck: non-tender, supple Respiratory: accessory muscle use, rales, rhonchi, wheezing Cardiovascular/Chest: normal peripheral pulses, regular rate, rhythm, other - +1 edema to the right lower extremity. Peripheral Pulses: radial,right: 2+, radial,left: 2+ Gastrointestinal/Abdominal: other - Diffuse discomfort to palpation throughout the lower abdomen primarily, may be a little bit worse in the right lower quadrant. Rectal Exam: deferred Back Exam: no CVA tenderness, no vertebral tenderness Extremity: normal range of motion, non-tender, normal inspection, no calf tenderness, normal capillary refill Neurologic: other - Patient is initially lethargic and disoriented. Mental status improves over 2 hours with improved oxygenation. After this there is no obvious new focal neurological deficit as far as I can tell. She does have baseline dementia which makes it difficult. Skin Exam: pallor Comments: Vital Signs - 24 hr 08/14/20 08/14/20 08/14/20 17:20 17:35 18:27 Temperature 98.8 F 98.6 F Pulse Rate Pulse Rate [ 88 88 Pulse ox] Respiratory 26 H 26 H Rate Blood Pressure 159/113 [R arm] O2 Sat by Pulse 88 L Oximetry 08/14/20 08/14/20 08/14/20 19:10 20:00 20:25 Temperature 97.4 F L 97.4 F L Pulse Rate 93 H 93 H Pulse Rate [ 92 H 90 Pulse ox] Respiratory 26 H 22 22 Rate Blood Pressure 161/72 136/66 [R arm] O2 Sat by Pulse 97 97 98 Oximetry 08/14/20 08/14/20 21:00 22:00 Temperature Pulse Rate 93 H 93 H Pulse Rate [ 88 94 H Pulse ox] Respiratory 22 22 Rate Blood Pressure 146/66 127/95 [R arm] O2 Sat by Pulse 96 94 L Oximetry Progress - Progress Progress: 08/14/20 22:54 Patient is a 74-year-old female with dementia presenting from long- term care facility secondary to what appeared to be multiple concurrent processes that are no doubt tied together. The patient has what appears to be hypoxic encephalopathy which appears to be improving with oxygenation. The hypoxia appears to be from acute pulmonary edema and a CHF exacerbation. This again is improving with oxygen and a dose of Lasix. The CHF exacerbation is likely related to the acute colitis as well as what appears to be some urinary retention. Wilkinson catheter was placed for urinary retention. There also may be a small right lower lobe infiltrate. For the likely infectious processes the patient was placed on Rocephin, azithromycin and metronidazole. Cultures have been done. The patient has tested negative for coronavirus. She did receive some breathing treatments as well as a supplemental oxygen and was breathing and mentating much better at this point. The patient will be admitted for continued care. Vital signs and patient condition have improved dramatically since arrival. The patient does have numerous longstanding medical problems and does have a very high mortality for this set of new issues. Admit for continued care. There was some delay in disposition secondary to difficulty with CT scanner. [email or web address] [phone] 08/14/20 22:58 Critical care time spent on both processes is 55 minutes. - Results/Orders Results/Orders: Chest x-ray shows fluid overload and possibly right lower lung field infiltrate. CT scan abdomen pelvis without contrast shows descending and sigmoid colitis. Some small free fluid in the right lower quadrant but no definite appendicitis. See report for details. EKG shows normal sinus rhythm 84 bpm. High voltage possibly consistent with LVH. Possible mild right axis deviation and left atrial dilation. Normal R wave progression. Borderline prolonged QT interval. No definitive ST segment or T wave changes indicative of acute ischemia. Laboratory Tests 08/14/20 08/14/20 08/14/20 14:04 14:04 14:04 WBC RBC Hgb Hct MCV MCH MCHC RDW Plt Count MPV Absolute Neuts (auto) Absolute Lymphs (auto) Absolute Monos (auto) Absolute Eos (auto) Absolute Basos (auto) Neutrophils % Lymphocytes % Monocytes % Eosinophils % Basophils % PT 11.7 H INR 1.18 H PTT (SP) 26.1 Fibrinogen 442 H D-Dimer, Quantitative 796.0 H* pCO2 pO2 HCO3 ABG pH ABG O2 Saturation ABG Base Excess ABG Deoxyhemoglobin Oxyhemoglobin % Carboxyhemoglobin % Methemoglobin % Sat Calc Total Hemoglobin Sodium Potassium Chloride Carbon Dioxide Anion Gap BUN Creatinine BUN/Creatinine Ratio POC Glucose Random Glucose Serum Osmolality Lactic Acid Calcium Magnesium Total Bilirubin AST ALT Alkaline Phosphatase LD Total 136 Creatine Kinase CK-MB (CK-2) CK-MB (CK-2) % Troponin I C-Reactive Protein 10.2 H* B-Natriuretic Peptide Serum Total Protein Albumin Globulin Albumin/Globulin Ratio Amylase Lipase TSH Urine Color Urine Appearance Urine pH Ur Specific Humphrey Urine Protein Urine Glucose (UA) Urine Ketones Urine Blood Urine Nitrite Urine Bilirubin Urine Urobilinogen Ur Leukocyte Esterase Urine RBC Urine WBC Ur Epithelial Cells Urine Bacteria 08/14/20 08/14/20 08/14/20 17:30 17:33 17:35 WBC RBC Hgb Hct MCV MCH MCHC RDW Plt Count MPV Absolute Neuts (auto) Absolute Lymphs (auto) Absolute Monos (auto) Absolute Eos (auto) Absolute Basos (auto) Neutrophils % Lymphocytes % Monocytes % Eosinophils % Basophils % PT INR PTT (SP) Fibrinogen D-Dimer, Quantitative pCO2 35 pO2 84 HCO3 26.6 ABG pH 7.487 H ABG O2 Saturation 97.2 ABG Base Excess 3.4 ABG Deoxyhemoglobin 2.8 Oxyhemoglobin % 95.5 Carboxyhemoglobin % 1.3 Methemoglobin % Sat 0.4 Calc Total Hemoglobin 12.9 Sodium Potassium Chloride Carbon Dioxide Anion Gap BUN Creatinine BUN/Creatinine Ratio POC Glucose 133 H Random Glucose Serum Osmolality Lactic Acid 1.8 Calcium Magnesium Total Bilirubin AST ALT Alkaline Phosphatase LD Total Creatine Kinase CK-MB (CK-2) CK-MB (CK-2) % Troponin I C-Reactive Protein B-Natriuretic Peptide Serum Total Protein Albumin Globulin Albumin/Globulin Ratio Amylase Lipase TSH Urine Color Urine Appearance Urine pH Ur Specific Humphrey Urine Protein Urine Glucose (UA) Urine Ketones Urine Blood Urine Nitrite Urine Bilirubin Urine Urobilinogen Ur Leukocyte Esterase Urine RBC Urine WBC Ur Epithelial Cells Urine Bacteria 08/14/20 08/14/20 08/14/20 18:18 18:18 18:18 WBC 16.1 H RBC 4.43 Hgb 12.4 Hct 37.9 MCV 85.5 MCH 28.0 MCHC 32.7 L RDW 14.9 H Plt Count 198 MPV 8.2 Absolute Neuts (auto) 14.20 H Absolute Lymphs (auto) 0.80 L Absolute Monos (auto) 0.90 H Absolute Eos (auto) 0.10 Absolute Basos (auto) 0.10 Neutrophils % 87.9 H Lymphocytes % 5.1 L Monocytes % 5.9 Eosinophils % 0.4 L Basophils % 0.7 PT INR PTT (SP) Fibrinogen D-Dimer, Quantitative pCO2 pO2 HCO3 ABG pH ABG O2 Saturation ABG Base Excess ABG Deoxyhemoglobin Oxyhemoglobin % Carboxyhemoglobin % Methemoglobin % Sat Calc Total Hemoglobin Sodium 139 Potassium 4.2 Chloride 102 Carbon Dioxide 27 Anion Gap 14.2 BUN 11 Creatinine 0.69 BUN/Creatinine Ratio 15.9 POC Glucose Random Glucose 154 H Serum Osmolality 280.0 Lactic Acid Calcium 9.4 Magnesium 1.7 L Total Bilirubin 0.9 AST 18 ALT 11 Alkaline Phosphatase 32 L LD Total Creatine Kinase 61 CK-MB (CK-2) 1.8 CK-MB (CK-2) % Not Reportable Troponin I 0.04 C-Reactive Protein B-Natriuretic Peptide 1420.0 H* Serum Total Protein 6.6 Albumin 3.7 Globulin 2.9 Albumin/Globulin Ratio 1.3 Amylase 22 L Lipase 24 TSH 0.84 Urine Color Urine Appearance Urine pH Ur Specific Humphrey Urine Protein Urine Glucose (UA) Urine Ketones Urine Blood Urine Nitrite Urine Bilirubin Urine Urobilinogen Ur Leukocyte Esterase Urine RBC Urine WBC Ur Epithelial Cells Urine Bacteria 08/14/20 21:01 WBC RBC Hgb Hct MCV MCH MCHC RDW Plt Count MPV Absolute Neuts (auto) Absolute Lymphs (auto) Absolute Monos (auto) Absolute Eos (auto) Absolute Basos (auto) Neutrophils % Lymphocytes % Monocytes % Eosinophils % Basophils % PT INR PTT (SP) Fibrinogen D-Dimer, Quantitative pCO2 pO2 HCO3 ABG pH ABG O2 Saturation ABG Base Excess ABG Deoxyhemoglobin Oxyhemoglobin % Carboxyhemoglobin % Methemoglobin % Sat Calc Total Hemoglobin Sodium Potassium Chloride Carbon Dioxide Anion Gap BUN Creatinine BUN/Creatinine Ratio POC Glucose Random Glucose Serum Osmolality Lactic Acid Calcium Magnesium Total Bilirubin AST ALT Alkaline Phosphatase LD Total Creatine Kinase CK-MB (CK-2) CK-MB (CK-2) % Troponin I C-Reactive Protein B-Natriuretic Peptide Serum Total Protein Albumin Globulin Albumin/Globulin Ratio Amylase Lipase TSH Urine Color Yellow Urine Appearance Clear Urine pH 6.0 Ur Specific Humphrey 1.010 Urine Protein Negative Urine Glucose (UA) Negative Urine Ketones Negative Urine Blood Trace-intact H Urine Nitrite Negative Urine Bilirubin Negative Urine Urobilinogen 0.2 Ur Leukocyte Esterase Small H Urine RBC 0-1 Urine WBC 3-5 H Ur Epithelial Cells 0 Urine Bacteria 0 Departure - Departure Clinical Impression: Acute pulmonary edema, Acute colitis, Hypoxic encephalopathy CHF exacerbation Qualifiers: Heart failure type: combined systolic and diastolic Qualified Code(s): I50.43 - Acute on chronic combined systolic (congestive) and diastolic (congestive) heart failure Right lower lobe pneumonia Qualifiers: Pneumonia type: due to unspecified organism Qualified Code(s): J18.9 - Pneumonia, unspecified organism Disposition: Admit Patient Departure Forms: ED Discharge - Pt. Copy, Patient Portal Self Enrollment Referrals: RUTHIE MENJIVAR MD [Primary Care Provider] - 1-2 Weeks Home Medications: Ambulatory Orders Atorvastatin Calcium [Lipitor] 10 mg PO BEDTIME 11/12/14 Sitagliptin-Metformin HCl [Janumet 50-1000 mg] 1 tab PO BID 11/12/14 Letrozole 2.5 mg PO DAILY 07/19/18 Losartan Potassium [Cozaar] 50 mg PO DAILY tab 07/21/18 Sertraline HCl [Zoloft] 100 mg PO DAILY 07/26/18 Aspirin [Aspirin Low Strength] 162 mg PO DAILY 06/18/19 Cholecalciferol [Vitamin D] 1,000 unit PO DAILY@0800 06/18/19 Fexofenadine HCl [Fexofenadine Hydrochlorid] 180 mg PO PRN 06/18/19 Fluticasone Prop 0.05% Nasal [Flonase Nasal [place]] 50 mcg BNAS DAILY PRN 06/18/19 Meloxicam 15 mg PO DAILY@0800 06/18/19 Ondansetron Tab [Zofran Tab] 4 mg PO Q6HR PRN 06/18/19 Pantoprazole Tablet [Protonix] 40 mg PO ACBK 06/18/19 Tramadol HCl 50 mg PO BEDTIME PRN 06/18/19 Donepezil HCl [Aricept] 23 mg PO BEDTIME 06/19/19 Acetaminophen [Acetaminophen Extra Stren] 1,000 mg PO PRN 10/21/19 Alum & Mag Hydrox-Simethicone [Almacone-II Double Streng] 30 ml PO BEDTIME 10/21/19 Bisacodyl Suppository 10Mg [Dulcolax Suppository 10mg] 10 mg PA DAILY PRN 10/21/19 Calcium Carbonate (Antacid) [Calcium Antacid Extra Str] 2 tablet PO PRN 10/21/19 Calcium Citrate-Vitamin D [Calcium Citrate + D3 200-250 mg-Unit] 2 tab PO DAILY 10/21/19 Loperamide HCl 2 mg PO PRN 10/21/19 Metoprolol Succinate [Metoprolol Succinate ER] 25 mg PO BID 10/21/19 Alum & Mag Hydrox-Simethicone [Laure-Mox] 1 haylee PO PRN 08/14/20 Bismatrol Susp 262/15 Ml 30 ml PO PRN 08/14/20 DiphenhydrAMINE HCL [Benadryl] 50 mg PO PRN 08/14/20 Magnesium Hydroxide [Milk Of Magnesia] 30 ml PO PRN 08/14/20 Polyethylene Glycol 3350 [Miralax] 17 gm PO PRN 08/14/20 Decision To Admit - Decistion To Admit Decision to Admit Reason: Medical Nature Decision to Admit Date: 08/14/20 Decision to Admit Time: 22:58
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
[2020-08-15] MEDS ORDERED: ALBUTEROL SULFATE 2.5 MG/3 ML VIAL NEB PRN (04:25)
[2020-08-15] MEDS ORDERED: SODIUM CHLORIDE 0.9% (FLUSH) 10 ML SYG IV PRN (04:25)
[2020-08-15] MEDS ORDERED: NITROGLYCERIN 0.4 MG 25 EA TAB SL PRN (04:25)
[2020-08-15] MEDS ORDERED: ONDANSETRON INJ 4 MG/2 ML VIAL IV PRN (04:25)
[2020-08-15] MEDS ORDERED: IV SET AND CAP CHANGE INJ INJ SCH (04:30)
[2020-08-15] MEDS ORDERED: DEXTROSE 50% 25 GM/50 ML SYG IV PRN (04:32)
[2020-08-15] MEDS ORDERED: GLUCAGON INJ 1 MG VIAL SUBCU PRN (04:32)
[2020-08-15] MEDS: PANTOPRAZOLE SODIUM IV 40 MG VIAL IV SCH (06:20)
[2020-08-15] MEDS: IPRATROPIUM/ALBUTEROL 3 ML VIAL INH SCH ×4 (08:42→19:45)
[2020-08-15] MEDS ORDERED: MAGNESIUM SULFATE PREMIX 2GM 2 GM in PREMIX BAG 1 BAG IVPB ONE (08:52)
[2020-08-15] MEDS ORDERED: cefTRIAXone SODIUM 1 GM VIAL ONE (09:34)
[2020-08-15] MEDS ORDERED: AZITHROMYCIN IV 500 MG VIAL IVPB ONE (09:34)
[2020-08-15] MEDS ORDERED: SITagliptin 50 MG TAB PO ONE ×2 (09:34→19:44)
[2020-08-15] MEDS ORDERED: MELOXICAM 7.5 MG TAB ONE (09:34)
[2020-08-15] MEDS ORDERED: MAGNESIUM SULFATE PREMIX 2GM 50 ML IVPB ONE (09:35)
[2020-08-15] MEDS ORDERED: metroNIDAZOLE IV PREMIX 500MG 100 ML IVPB ONE ×2 (09:35→17:49)
[2020-08-15] MEDS ORDERED: SODIUM CHLORIDE 0.9% 250ML 250 ML ONE (09:35)
[2020-08-15] MEDS ORDERED: SODIUM CHL 0.9% 50ML MIN-BAG+ 50 ML IVPB ONE (09:40)
[2020-08-15] MEDS: cefTRIAXone SODIUM 1 GM in SODIUM CHL 0.9% 50ML MIN-BAG+ 50 ML IVPB SCH (09:43)
[2020-08-15] MEDS: FUROSEMIDE INJ 40 MG/4 ML VIAL IV SCH ×2 (09:43→17:51)
[2020-08-15] MEDS: SODIUM CHLORIDE 0.9% (FLUSH) 10 ML SYG IV SCH ×2 (09:43→21:00)
[2020-08-15] MEDS: metroNIDAZOLE IV PREMIX 500MG 500 MG in PREMIX BAG 1 BAG IVPB SCH ×2 (09:44→17:51)
[2020-08-15] MEDS: ASPIRIN (CHEWABLE) 81 MG TAB PO SCH (09:54)
[2020-08-15] MEDS: METOPROLOL TARTRATE 25 MG TAB PO SCH ×2 (09:54→20:23)
[2020-08-15] MEDS: LOSARTAN POTASSIUM 25 MG TAB PO SCH (09:54)
[2020-08-15] MEDS: SERTRALINE HCL 50 MG TAB PO SCH (09:55)
[2020-08-15] MEDS: NON-FORMULARY MEDICATION 1 EA MIS (Meloxicam [Meloxicam] 15 MG) PO SCH (09:55)
[2020-08-15] MEDS: INSULIN LISPRO 100 UNITS/ML PEN SUBCU SCH ×4 (10:01→21:00)
[2020-08-15] MEDS ORDERED: metFORMIN HCL 500 MG TAB ONE ×2 (10:07→19:44)
[2020-08-15] MEDS: NON-FORMULARY MEDICATION 1 EA MIS (Sitagliptin-Metformin Hcl [Janumet 50-1000 Mg] 1 TAB) PO SCH ×2 (10:14→20:21)
[2020-08-15] MEDS: FEXOFENADINE HCL 180 MG PO SCH (10:15)
[2020-08-15] MEDS: NON-FORMULARY MEDICATION 1 EA MIS (Letrozole [Letrozole] 2.5 MG) PO SCH (10:20)
[2020-08-15] MEDS: AZITHROMYCIN IV 500 MG in SODIUM CHLORIDE 0.9% 250ML 250 ML IVPB SCH (11:00)
[2020-08-15] MEDS: traMADol HCL 50 MG TAB PO PRN (12:10)
[2020-08-15] MEDS ORDERED: PROMETHAZINE W/CODEINE SYR 5 ML UD PO PRN (19:15)
[2020-08-15] MEDS ORDERED: diphenhydrAMINE HCL 25 MG CAP ONE (19:44)
[2020-08-15] MEDS: NON-FORMULARY MEDICATION 1 EA MIS (Diphenhydramine Hcl [Benadryl] 50 MG) PO SCH (20:21)
[2020-08-15] MEDS: BIFIDOBACTERIUM INFANTIS 4 MG CAP PO SCH (20:23)
[2020-08-15] MEDS: ATORVASTATIN 10 MG TAB PO SCH (20:23)
[2020-08-15] MEDS: DONEPEZIL HCL 5 MG TAB PO SCH (20:24)
[2020-08-15] MEDS: ENOXAPARIN SODIUM 40 MG/0.4 ML SYG SUBCU SCH (20:25)
[2020-08-16] MEDS ORDERED: metroNIDAZOLE IV PREMIX 500MG 100 ML IVPB ONE ×4 (00:55→19:13)
[2020-08-16] MEDS: metroNIDAZOLE IV PREMIX 500MG 500 MG in PREMIX BAG 1 BAG IVPB SCH ×3 (00:57→16:59)
[2020-08-16] MEDS ORDERED: PANTOPRAZOLE SODIUM IV 40 MG VIAL ONE ×2 (04:59→19:13)
[2020-08-16] MEDS: PANTOPRAZOLE SODIUM IV 40 MG VIAL IV SCH (05:59)
[2020-08-16] MEDS: INSULIN LISPRO 100 UNITS/ML PEN SUBCU SCH ×4 (07:54→21:06)
[2020-08-16] MEDS: FEXOFENADINE HCL 180 MG PO SCH (08:10)
[2020-08-16] MEDS: NON-FORMULARY MEDICATION 1 EA MIS (Letrozole [Letrozole] 2.5 MG) PO SCH (08:10)
[2020-08-16] MEDS ORDERED: FUROSEMIDE INJ 40 MG/4 ML VIAL ONE ×2 (08:15→16:45)
[2020-08-16] MEDS ORDERED: MELOXICAM 7.5 MG TAB ONE (08:16)
[2020-08-16] MEDS ORDERED: METOPROLOL TARTRATE 25 MG TAB ONE ×2 (08:16→19:12)
[2020-08-16] MEDS ORDERED: ASPIRIN (CHEWABLE) 81 MG TAB ONE (08:16)
[2020-08-16] MEDS ORDERED: LOSARTAN POTASSIUM 25 MG TAB ONE (08:17)
[2020-08-16] MEDS ORDERED: SODIUM CHL 0.9% 50ML MIN-BAG+ 50 ML IVPB ONE (08:17)
[2020-08-16] MEDS ORDERED: cefTRIAXone SODIUM 1 GM VIAL ONE (08:17)
[2020-08-16] MEDS: NON-FORMULARY MEDICATION 1 EA MIS (Meloxicam [Meloxicam] 15 MG) PO SCH (08:25)
[2020-08-16] MEDS: METOPROLOL TARTRATE 25 MG TAB PO SCH ×2 (08:25→20:26)
[2020-08-16] MEDS: LOSARTAN POTASSIUM 25 MG TAB PO SCH (08:25)
[2020-08-16] MEDS: FUROSEMIDE INJ 40 MG/4 ML VIAL IV SCH ×2 (08:26→16:59)
[2020-08-16] MEDS: BIFIDOBACTERIUM INFANTIS 4 MG CAP PO SCH ×2 (08:26→20:28)
[2020-08-16] MEDS: ASPIRIN (CHEWABLE) 81 MG TAB PO SCH (08:26)
[2020-08-16] MEDS: cefTRIAXone SODIUM 1 GM in SODIUM CHL 0.9% 50ML MIN-BAG+ 50 ML IVPB SCH (08:27)
--- NOTE | 2020-08-16 08:27 | CONS ---
REASON FOR CONSULTATION: Abdominal pain. HISTORY OF PRESENT ILLNESS: This is a 74 year-old woman who lives at [facility] who yesterday per the patient was found to be hypoxic and per the patient passed out. She had altered mental status, she did not remember the event. Reportedly, she was tachypneic, oxygen saturation in the 80s and she was admitted with pneumonitis and pneumonia. The patient states that after she was here she was very hungry and after she had a meal, her abdomen started hurting. She does not recall that it hurt yesterday or on the previous days. She has had no nausea or vomiting. She has denied any diarrhea. She does have a history ol diverticulosis with a colonoscopy with Dr. Ochoa about 2 years ago. Currently, she says she is feeling very well but she does still have some slight mild bilateral lower abdominal pain, not particularly or intermittent but it's more constant. She has no short of breath at this time. She does not complain of any cough, sore throat or wheeze and additionally no frequency, dysuria or hematuria. PAST MEDICAL HISTORY: 1. Gastroesophageal reflux disease. 2. She denies any significant heart problem. 3. Diabetes mellitus type 2. 4. Neck pain and back pain from previous surgery. PAST SURGICAL HISTORY: 1. Vaginal hysterectomy with bladder suspension. 2. Tonsillectomy. 3. Left modified radical mastectomy. 4. Back and neck surgery. CURRENT MEDICATIONS: 1. Loperamide. 2. Metoprolol. 3. Pantoprazole. 4. Some supplements - please see the list. ALLERGIES: None. FAMILY HISTORY: Noncontributory. REVIEW OF SYSTEMS: HEENT: Denies headache, no visual changes, no sore throat, cough or wheeze. RESPIRATORY: No chest pain or palpitations. GI: As above. GENITOURINARY: As above. EXTREMITIES: No cyanosis, no complaints of any leg pain. She has had some right leg edema greater than the left for quite some time, thought to be possibly from what sounds like a Potter's cyst. NEUROLOGICAL: No complaints. PHYSICAL EXAMINATION: VITAL SIGNS: Temperature 98.1, heart rate in the 60s. Blood pressure 111/58, oxygen saturation 94% on room air. She has had 870 output since admission. She says she has been feeding adequately. GENERAL: This evening, she is conscious, alert and well-oriented and in no distress. HEENT: Normocephalic and atraumatic. Pupils are equal and reactive to light. Sclera icterus, oral mucosa moist. NECK: Supple with no adenopathy, jugular venous distention or thyromegaly. CHEST: Clear and equal bilaterally. No wheezes or crackles. CARDIOVASCULAR: Regular rate and rhythm. No murmurs, rubs, or gallops at this time. ABDOMEN: Flat, soft, there is mild bilateral lower abdominal pain with no guarding, slight rebound. No evidence of a rigid abdomen or peritonitis. No obvious hernias, no skin color changes. No CVA tenderness. EXTREMITIES: No cyanosis, she does have a trace of 1% edema in the right lower extremity, greater than the left. I do not feel an obvious Potter's cyst or aneurysm. She does have 2+ pulse throughout. LABORATORY: Urinalysis with no obvious infection. Last evening, white count was 6.2, hematocrit 38, platelet count 198,000. On repeat, INR was 1.1. Chemistries yesterday evening at 1800 were normal renal function, magnesium 1.7, LFTs were normal, BNP 1400, amylase 22. RADIOLOGY: CT scan reported as some colitis in the distal and sigmoid colon. I did review the CT myself and there does appear to be some mild wall thickening without significant pericolonic stranding with some diverticulosis but no focal inflammation such as diverticulitis. The right lower quadrant shows a tiny bit of fat stranding. In looking at her multiple views, acute appendicitis is not obvious. I don't definitely identify the appendix. I will review with radiology if needed. She has cholelithiasis without evidence of cholecystitis. IMPRESSION: 1. Abdominal pain, uncertain etiology, possible mild colitis which is enteritis in the terminal ileum. PLAN: Continue with observation for her abdomen, she does not appear to have an acute abdomen at this time. She is also dealing with congestive heart failure and pneumonia. She is on antibiotics and steroids. Mention of possible appendicitis, I have reviewed the CT and it does not appear to be obvious appendicitis at this time though will observe the patient. Possible repeat scans if needed. #[id number] [facility]
[2020-08-16] MEDS: SODIUM CHLORIDE 0.9% (FLUSH) 10 ML SYG IV SCH ×2 (08:29→20:32)
[2020-08-16] MEDS ORDERED: SITagliptin 50 MG TAB PO ONE ×2 (08:39→19:12)
[2020-08-16] MEDS ORDERED: SERTRALINE HCL 50 MG TAB ONE (08:39)
[2020-08-16] MEDS: NON-FORMULARY MEDICATION 1 EA MIS (Sitagliptin-Metformin Hcl [Janumet 50-1000 Mg] 1 TAB) PO SCH ×2 (08:40→20:23)
[2020-08-16] MEDS: IPRATROPIUM/ALBUTEROL 3 ML VIAL INH SCH ×4 (08:40→20:50)
[2020-08-16] MEDS: SERTRALINE HCL 50 MG TAB PO SCH (08:41)
[2020-08-16] MEDS ORDERED: IPRATROPIUM/ALBUTEROL 3 ML VIAL NEB ONE ×3 (08:53→19:50)
--- NOTE | 2020-08-16 09:06 | RAD ---
: 1945. Technique: Portable AP chest x-ray. Comparison: August 14, 2020. Clinical history: CHF. Heart size: Heart size is borderline enlarged unchanged. There is no vascular congestion. Lungs: No acute consolidation. Pleura: No pleural effusion. No pneumothorax. Mediastinum and forrest: Unremarkable. Skeletal: Partially visible thoracolumbar Laureano rods.. Support tubings: None. Impression: 1. No acute changes in the chest. Electronically signed by: Liban Estrada MD 08/16/2020 9:05 AM [facility]
[2020-08-16] MEDS ORDERED: AZITHROMYCIN IV 500 MG VIAL IVPB ONE (11:15)
[2020-08-16] MEDS ORDERED: SODIUM CHLORIDE 0.9% 250ML 250 ML ONE (11:15)
[2020-08-16] MEDS: AZITHROMYCIN IV 500 MG in SODIUM CHLORIDE 0.9% 250ML 250 ML IVPB SCH (11:56)
[2020-08-16] MEDS: methylPREDNISolone SODIUM SUC 40 MG/ML VIAL IV SCH ×2 (11:56→20:32)
--- NOTE | 2020-08-16 12:27 | PN ---
DATE: 08/16/20 HISTORY: Abdominal pain. SUBJECTIVE: The patient still complains of lower abdominal pain. She points to the middle of her abdomen. She is eating a diet, no nausea, vomiting, diarrhea. She is overall feeling well. OBJECTIVE: VITAL SIGNS: Temperature 98,6. heart rate 64, blood pressure 137/65, 90% on a nasal cannula and 97% earlier this evening. GENERAL: She is conscious, alert and well oriented, in no distress. ABDOMEN: Flat, soft, there is some tenderness in bilateral lower quadrants, no one side greater than the other. There is no Espitia's sign. There is no rigidity or guarding, just slight tenderness to deep palpation. LABORATORY: White blood cell count is pending. Hematocrit is 31, platelet count 157,000. Chemistries are essentially normal. MICROBIOLOGY: The urine culture shows no significant growth. Blood cultures so far are negative. IMPRESSION: Abdominal pain with some enteritis, little change but no evidence of peritonitis. The chest x-ray looks stable with no obvious infiltrate. PLAN: Continue observation. She is eating, her abdomen seems fine so I think we will continue observation for today. Her white blood cell count is normal and she is afebrile so everything is looking good. Again, the CT scan shows nonspecific enteritis with no evidence of severe acute process. #[id number] [facility]
[2020-08-16] MEDS ORDERED: traMADol HCL 50 MG TAB ONE ×2 (14:43→22:47)
[2020-08-16] MEDS: traMADol HCL 50 MG TAB PO PRN ×2 (14:44→22:48)
--- NOTE | 2020-08-16 18:55 | PN ---
SUPERVISING PHYSICIAN: Manohar Melissa MD DATE: 08/16/20 SUBJECTIVE: The patient is sitting up in bed. She has no complaints of shortness of breath, chest pain, nausea or vomiting. It was reported that her saturations do drop into the mid 80s at night when she is asleep and records do show that. I have explained to the patient she most likely be able to go home tomorrow, but will need to get her oxygen for at night. OBJECTIVE: VITAL SIGNS: Temperature 97.9, heart rate 61, blood pressure 96/59, respiratory rate 18, O2 93% on room air. She does drop into the mid 80s at night without oxygen. RESPIRATORY: Diminished breath sounds throughout, but otherwise clear to auscultation. CARDIAC: Regular rate and rhythm. GASTROINTESTINAL: Abdomen is soft, nondistended, nontender. Bowel sounds are positive. She is tolerated her oral intake without any problems. NEUROLOGIC: Awake, alert and oriented times three. LABORATORY: WBCs 10.4, hemoglobin 10.5, hematocrit 31.4. She has a left shift on her differential. Electrolytes are basically within normal limits. Alkaline phosphatase 26. MICROBIOLOGY: Urine culture shows no growth. Preliminary blood cultures show no growth after 24 hours. RADIOLOGY: Chest x-ray shows no acute changes in the chest. ASSESSMENT: 1. Sepsis related to right-sided pneumonia. May be due to health care acquired. She did have a WBC of 16,100 with a left shift on differential, oxygen saturations 88% with respiratory rate of 26, heart rate 93, CRP of 10.2. 2. High risk for COVID-19, although she did have a negative PCR. 3. Acute exacerbation of congestive heart failure with BNP of 1,420. I do not see an official diagnosis of congestive heart failure and there is no current echocardiogram to review. 4. Abdominal pain with colitis. 5. Questionable urinary retention contributing to abdominal pain. 6. Urinary tract infection, may be contributing to #1. 7. Diabetes mellitus, type 2. 8. Hyperlipidemia. 9. Gastroesophageal reflux disease. 10. Questionable appendicitis. PLAN: We will continue present supportive care. We need to monitor her weight closely as she had about a 1 kg weight gain overnight and we are unable to measure her urine output. She will continue on her IV furosemide. Hopefully, she will continue to diurese well. She will need a sleep study at discharge. At this point, we will need to get her oxygen to use at night and p.r.n. as she does drop into the mid 80s when she is without oxygen when she is asleep. I have ordered routine lab for in the morning. Hopefully, she can be discharged in the next 24 to 48 hours back to [facility]. #[id number] [facility]
[2020-08-16] MEDS ORDERED: diphenhydrAMINE HCL 25 MG CAP ONE (19:12)
[2020-08-16] MEDS ORDERED: DONEPEZIL HCL 5 MG TAB ONE (19:12)
[2020-08-16] MEDS ORDERED: BIFIDOBACTERIUM INFANTIS 4 MG CAP ONE (19:12)
[2020-08-16] MEDS ORDERED: ATORVASTATIN 10 MG TAB ONE (19:12)
[2020-08-16] MEDS ORDERED: metFORMIN HCL 500 MG TAB ONE (19:12)
[2020-08-16] MEDS ORDERED: ENOXAPARIN SODIUM 40 MG/0.4 ML SYG SUBCU ONE (19:13)
[2020-08-16] MEDS ORDERED: ACETAMINOPHEN 325 MG TAB ONE (20:22)
[2020-08-16] MEDS: ACETAMINOPHEN 325 MG TAB PO PRN (20:24)
[2020-08-16] MEDS: NON-FORMULARY MEDICATION 1 EA MIS (Diphenhydramine Hcl [Benadryl] 50 MG) PO SCH (20:25)
[2020-08-16] MEDS: ATORVASTATIN 10 MG TAB PO SCH (20:26)
[2020-08-16] MEDS: DONEPEZIL HCL 5 MG TAB PO SCH (20:29)
[2020-08-16] MEDS: ENOXAPARIN SODIUM 40 MG/0.4 ML SYG SUBCU SCH (20:29)
[2020-08-17] MEDS: metroNIDAZOLE IV PREMIX 500MG 500 MG in PREMIX BAG 1 BAG IVPB SCH ×2 (00:56→09:50)
[2020-08-17] MEDS: PANTOPRAZOLE SODIUM IV 40 MG VIAL IV SCH (06:02)
[2020-08-17] MEDS: INSULIN LISPRO 100 UNITS/ML PEN SUBCU SCH ×2 (07:10→11:42)
[2020-08-17] MEDS ORDERED: IPRATROPIUM/ALBUTEROL 3 ML VIAL NEB ONE ×2 (08:04→13:10)
[2020-08-17] MEDS: IPRATROPIUM/ALBUTEROL 3 ML VIAL INH SCH ×2 (08:11→13:13)
[2020-08-17] MEDS ORDERED: predniSONE 20 MG TAB PO SCH (09:00)
[2020-08-17] MEDS ORDERED: FUROSEMIDE INJ 40 MG/4 ML VIAL ONE (09:01)
[2020-08-17] MEDS ORDERED: BIFIDOBACTERIUM INFANTIS 4 MG CAP ONE (09:01)
[2020-08-17] MEDS ORDERED: SITagliptin 50 MG TAB PO ONE (09:02)
[2020-08-17] MEDS ORDERED: metFORMIN HCL 500 MG TAB ONE (09:02)
[2020-08-17] MEDS ORDERED: MELOXICAM 7.5 MG TAB ONE (09:02)
[2020-08-17] MEDS ORDERED: ASPIRIN (CHEWABLE) 81 MG TAB ONE (09:02)
[2020-08-17] MEDS ORDERED: METOPROLOL TARTRATE 25 MG TAB ONE (09:02)
[2020-08-17] MEDS ORDERED: SERTRALINE HCL 50 MG TAB ONE (09:02)
[2020-08-17] MEDS ORDERED: LOSARTAN POTASSIUM 25 MG TAB ONE (09:03)
[2020-08-17] MEDS ORDERED: cefTRIAXone SODIUM 1 GM VIAL ONE (09:03)
[2020-08-17] MEDS ORDERED: metroNIDAZOLE IV PREMIX 500MG 100 ML IVPB ONE (09:03)
[2020-08-17] MEDS ORDERED: SODIUM CHL 0.9% 50ML MIN-BAG+ 50 ML IVPB ONE (09:03)
[2020-08-17] MEDS: SODIUM CHLORIDE 0.9% (FLUSH) 10 ML SYG IV SCH (09:09)
[2020-08-17] MEDS: cefTRIAXone SODIUM 1 GM in SODIUM CHL 0.9% 50ML MIN-BAG+ 50 ML IVPB SCH (09:09)
[2020-08-17] MEDS: FUROSEMIDE INJ 40 MG/4 ML VIAL IV SCH (09:10)
[2020-08-17] MEDS: METOPROLOL TARTRATE 25 MG TAB PO SCH (09:16)
[2020-08-17] MEDS: LOSARTAN POTASSIUM 25 MG TAB PO SCH (09:17)
[2020-08-17] MEDS: SERTRALINE HCL 50 MG TAB PO SCH (09:18)
[2020-08-17] MEDS: NON-FORMULARY MEDICATION 1 EA MIS (Meloxicam [Meloxicam] 15 MG) PO SCH (09:19)
[2020-08-17] MEDS: BIFIDOBACTERIUM INFANTIS 4 MG CAP PO SCH (09:21)
[2020-08-17] MEDS: ASPIRIN (CHEWABLE) 81 MG TAB PO SCH (09:21)
[2020-08-17] MEDS: FEXOFENADINE HCL 180 MG PO SCH (09:22)
[2020-08-17] MEDS: NON-FORMULARY MEDICATION 1 EA MIS (Letrozole [Letrozole] 2.5 MG) PO SCH (09:22)
[2020-08-17] MEDS: NON-FORMULARY MEDICATION 1 EA MIS (Sitagliptin-Metformin Hcl [Janumet 50-1000 Mg] 1 TAB) PO SCH (09:22)
[2020-08-17] MEDS ORDERED: metFORMIN HCL 500 MG TAB PO SCH (09:30)
[2020-08-17] MEDS ORDERED: MELOXICAM 7.5 MG TAB PO SCH (09:30)
[2020-08-17] MEDS ORDERED: LOPERAMIDE CAP 2 MG CAP PO ONE (10:58)
[2020-08-17] MEDS: AZITHROMYCIN IV 500 MG in SODIUM CHLORIDE 0.9% 250ML 250 ML IVPB SCH (11:18)
[2020-08-17 13:13] VITALS: BP 123/69; TEMP 98; O2SAT 94
[2020-08-17] MEDS: ACETAMINOPHEN 325 MG TAB PO PRN (14:31)
[2020-08-17] MEDS ORDERED: diphenhydrAMINE HCL 25 MG CAP PO SCH (21:00)
[2020-08-17] MEDS ORDERED: DONEPEZIL HCL 5 MG TAB PO SCH (21:00)
[2020-08-18] MEDS ORDERED: CETIRIZINE HCL 10 MG TAB PO SCH (09:00)
--- NOTE | 2020-08-18 11:50 | DS ---
SUPERVISING PHYSICIAN: Canelo Damon MD ADMISSION DIAGNOSIS: 1. Sepsis related to right-sided pneumonia. May be due to health care acquired. She did have a WBC of 16,100 with a left shift on differential, oxygen saturations 88% with respiratory rate of 26, heart rate 93, CRP of 10.2. 2. High risk for COVID-19, although she did have a negative PCR. 3. Acute exacerbation of congestive heart failure with BNP of 1,420. I do not see an official diagnosis of congestive heart failure and there is no current echocardiogram to review. 4. Abdominal pain with colitis. 5. Questionable urinary retention contributing to abdominal pain. 6. Urinary tract infection, may be contributing to #1. 7. Diabetes mellitus type 2. 8. Hyperlipidemia. 9. Gastroesophageal reflux disease. 10. Questionable appendicitis. DISCHARGE DIAGNOSIS: 1. Sepsis secondary to right-sided pneumonia, likely health care acquired. 2. Negative COVID-19 testing. 3. Acute exacerbation of congestive heart failure with elevated BNP showing an estimated ejection fraction of 60-65% with diastolic dysfunction on current echocardiogram, final results pending. 4. Abdominal pain, likely colitis with no signs of acute appendicitis with surgical consultation. 5. Intermittent urinary retention, possibly contributing to abdominal pain with the patient showing no difficulties prior to discharge. 6. Possible urinary tract infection though urine cultures showed normal keri. 7. Diabetes mellitus, type 2. 8. Hyperlipidemia. 9. Gastroesophageal reflux disease. REASON FOR HOSPITALIZATION: This is a 74 year-old female patient who lives at [facility] and sent to the hospital due to hypoxia and altered mental status. Over the last few days she had been increasingly more confused. Her oxygen saturation on room air was in the low 80s. She was also tachypneic. She was unable to answer any questions appropriately. Her initial vital signs showed a temperature of 98.8 with a heart rate of 92, respiratory rate 26, initial saturation in the Emergency Room of 88%, with oxygen it went up to 92%. She was given Lasix as well as placed on oxygen and her mental status did improve over the next several hours. It was apparent that she had some abdominal discomfort, although the patient denies any diarrhea. Wilkinson catheter was placed due to her urinary incontinence and a residual urine of 300 cc. Her lab studies showed a WBC of 16,200 with hemoglobin of 12.4, hematocrit 37.9, platelet count 198,000. She did have a left shift on the differential. Her blood gas was unremarkable except her pH was 7.487. Electrolytes were basically within normal limits with a blood sugar of 154, magnesium of 1.7. CRP 10.7 with a BNP of 1,420. Amylase 22, lipase 24, TSH 0.84. Urinalysis showed a trace of intact urine blood, small amount of urine leukocyte esterase and 3 to 5 WBCs. Blood cultures were drawn. Her urine was sent for culture. She also had a respiratory panel per PCR that showed negative for COVID-19. Her chest x-ray showed decreased lung volumes of over crowding, pulmonary markings and an early fluid overload, interstitial pulmonary edema should be included in the differential. Posterior articular thoracolumbar fusion similar to prior study. Her abdominal x-ray showed mild right ground glass infiltrate, appears is nonspecific and could reflect pneumonitis from asymmetrical aspiration, atypical vascular congestion or pneumonia including viral etiology, nonobstructive intestinal bowel gas pattern. Her abdominal/pelvis CT showed nonspecific colitis involving the distal descending and sigmoid colon, colonic diverticulosis, although the long segment, colonic wall thickening does not appear to be related to acute diverticular disease, nonspecific right lower quadrant fluid and fat stranding without definitively identified appendix, acute appendicitis is certainly possible, though this could be related to the enterocolitis. Correlate for evidence of right lower quadrant tenderness. Cholelithiasis. In the Emergency Room she was given several breathing treatments, some IV Lasix as well as some IV steroids. She was also started on ceftriaxone, azithromycin and Flagyl. She was admitted to the hospital in stable condition. LABORATORY: White count on discharge was 6,600, hemoglobin 10.5, hematocrit 32.0, platelet count 155,000. Differential showed a slight left shift, but was resolving. Coagulation studies showed PT 11.7, PTT 26.1, D-dimer 796, fibrinogen 4.2. Blood gas analysis showed a mildly alkalotic pH of 7.487 with all pCO2, pO2 and bicarb within normal limits, saturation 97% on room air. Final chemistries on discharge showed normal electrolytes, BUN 22, creatinine 1.03. Blood sugars ranged between 116 and 200. Lactic acid was normal. Magnesium normal. Liver functions within normal limits. She did have an elevated C-reactive protein at 11.2. Amylase and lipase were within normal limits. BNP was elevated at 1420. Urinalysis showed trace intact blood. Microscopic revealed 0 to 1 RBCs, 3 to 5 WBCs, no epithelials, no bacteria. MICROBIOLOGY: Usually showed normal keri. Respiratory panel was negative for all bacterial and viral targets including influenza and COVID. Blood cultures remained negative after 3 days. RADIOLOGY: Chest x-ray on 08/16/20, the day prior to discharge, showed no acute changes in the chest. Heart size was borderline enlarged, unchanged. No vascular congestion. There were no acute consolidations, no pleural effusions, no pneumothorax. She had an abdominopelvic CT in the ER per radiologic interpretation showed nonspecific colitis involving the distal descending and sigmoid colon, colonic diverticulosis, although the long segment colonic wall thickening does not appear to be related to acute diverticular disease. Nonspecific right lower quadrant fluid and fat stranding, without definitively identified appendix. Acute appendicitis is certainly possible, although this could also be related to enterocolitis. Cholelithiasis. After surgical consultation, appendicitis was ruled out. CONSULTATION: Dr. Dash. Please see Dr. Dash's consultation report. HOSPITAL COURSE: Ms. Navarro was admitted for acute abdominal pain with associated symptoms including right sided pneumonia with some exacerbation of congestive heart failure. Her ejection fraction actually was fairly good, at least 60% by verbal report with final report pending. She was treated with antibiotics including azithromycin, Rocephin and Flagyl. She was given Lasix for diuresis after medical consultation with Dr. Dash. The patient was showing good clinical improvement and it was felt she had improved clinically well enough to discharge home to continue treatment as an outpatient and followup with Dr. Melissa. PLAN: Ms. Navarro was discharged on 08/17/20 with instructions to followup with Dr. Melissa scheduled on 08/20/20 at 9:30 AM. She did go back to [facility] and to continue all previous medications as instructed and take new medications as prescribed. She was to follow a diabetic diet. She was to increase her activity as tolerated. MEDICATIONS ON DISCHARGE: 1. Align 4 mg twice daily. 2. Flagyl 500 mg q.8h., #15, no refills. 3. Potassium mEq daily, #10, no refills. 4. Lasix 10 mg daily, 20 mg tablets take half a tablet daily, #5, no refills. 5. Cefdinir 300 mg twice daily, #10. 6. Albuterol inhaler 1 puff q.4h. as needed, #1 inhaler, no refills. She was already on a beta norman in the form of metoprolol succinate extended release 25 mg. She was also continued on prednisone taper 40 mg for 2 days, 30 mg for 2 days, 20 mg for 2 days, then 10 mg for 2 days. She was also on losartan 50 mg daily. She was encouraged to keep hydrated and to watch her fluid intake to less than 1800 cc per day. She was to watch her weight and notify Dr. Melissa's office if she noted 2 to 3 pounds weight gain in 24 hours. She was to notify Dr. Melissa's office or go the ER for any worsening symptoms including increasing shortness of breath or swelling or other concerning symptoms. DISPOSITION: The patient was discharged to return back to [facility]. CONDITION ON DISCHARGE: Stable and improving. #[id number] [facility]
== END 2020-08-17 15:39 | disposition home health service (06) | DRG 871 ==
LOC: ER 17:19 → OBSVTOIN 23:10 → MS 23:10
PROVIDERS: ADMIT Nurse Practitioner Acute Care; ATTEND Nurse Practitioner Family
DX: A41.9 Sepsis, unspecified organism (principal); J18.9 Pneumonia, unspecified organism; I50.33 Acute on chronic diastolic (congestive) heart failure; N39.0 Urinary tract infection, site not specified; F03.90 Unspecified dementia, unspecified severity, without behavioral disturbance, psychotic disturbance, mood disturbance, and anxiety; E11.9 Type 2 diabetes mellitus without complications; R09.02 Hypoxemia; K21.9 Gastro-esophageal reflux disease without esophagitis; G89.29 Other chronic pain; M54.2 Cervicalgia; M54.9 Dorsalgia, unspecified; K52.9 Noninfective gastroenteritis and colitis, unspecified; R32 Unspecified urinary incontinence; R33.9 Retention of urine, unspecified; E78.5 Hyperlipidemia, unspecified; Y95 Nosocomial condition; Z79.1 Long term (current) use of non-steroidal anti-inflammatories (NSAID); Z79.82 Long term (current) use of aspirin; Z79.891 Long term (current) use of opiate analgesic; Z85.3 Personal history of malignant neoplasm of breast; Z79.899 Other long term (current) drug therapy

== ENCOUNTER → 2020-09-24 | Outpatient (CLI) | payer MEDICARE, BC ==
--- NOTE | 2020-09-24 20:56 | US ---
EXAM DESCRIPTION: Extremity,Lower RT Arteries: Ultrasound. CLINICAL HISTORY: PN IN RIGHT LOWER LEG COMPARISON: None. TECHNIQUE: Doppler evaluation of the bilateral lower extremity arterial flow waveforms and velocities. FINDINGS: Arterial waveforms in the right lower extremity are all multiphasic. Comments: Elevated velocities in the distal right SCOUT EXECUTIVE and distal peroneal artery. As clinically indicated impending or early stenosis. Edema in the subcutaneous adipose tissue. IMPRESSION: Doppler ultrasound of the bilateral lower extremity arterial system shows no evidence of significant atherosclerotic occlusive disease, but elevated velocities in the distal right SCOUT EXECUTIVE and distal right peroneal artery could indicate impending or early stenosis. Edema in the subcutaneous adipose tissue. Electronically signed by: Fidencio Bell MD 09/24/2020 8:54 PM [employer]IO[employer]HY [employer]
--- NOTE | 2020-09-24 20:58 | US ---
EXAM DESCRIPTION: Venous,Lower Extremity RT: ULTRASOUND. CLINICAL HISTORY: PN IN RIGHT LOWER LEG COMPARISON: None Available. TECHNIQUE: Pittman-scale and doppler sonographic evaluation of the deep venous system of the right lower extremity. FINDINGS: Doppler evaluation shows normal color flow and normal phasicity and augmentation of the right common femoral vein, right femoral vein, popliteal vein, right greater saphenous vein, junction with the CFV. Also normal color flow and normal phasicity and augmentation of the peroneal, and posterior tibial vein. The right lower extremity deep veins were completely compressible; normal occlusion with transducer pressure. Pittman-scale survey showed no echogenic thrombus within these veins. Ill-defined fluid collection in the popliteal fossa measuring 4.1 x 1.5 x 0.6 x 0.4 cm . Nonvascular. IMPRESSION: 1. Duplex ultrasound evaluation of the right lower extremity deep venous system showing no evidence of thrombosis. 2. Potter's cyst in the right popliteal fossa. Electronically signed by: Fidencio Bell MD 09/24/2020 8:56 PM [employer]
== END ==
LOC: US 14:08
PROVIDERS: ATTEND Family Medicine
DX: M71.21 Synovial cyst of popliteal space [Baker], right knee (principal); I77.89 Other specified disorders of arteries and arterioles; R60.0 Localized edema

== ENCOUNTER → 2020-12-07 | Outpatient (CLI) | payer MEDICARE, BC | LOC: BFHH 14:45 | PROVIDERS: ATTEND Family Medicine | DX: I11.0 Hypertensive heart disease with heart failure (principal); I50.9 Heart failure, unspecified; E11.40 Type 2 diabetes mellitus with diabetic neuropathy, unspecified; E55.9 Vitamin D deficiency, unspecified ==